=== PATIENT | female | born 1940 | race Caucasian/White ===

== ENCOUNTER 2019-01-16 20:37 | Inpatient (IN) ==
--- NOTE | 2019-01-16 20:41 | Internal Med History&Physical ---
Medical - H&P: HPI Patient information: Note initiated : 01/16/19 at 8:38 pm Service Date, if different from initiated Date: [] Patient: Shannon Alarcon 78 y/o F admitted on for Dialysis. Chief Complaint: [] History of present illness: Ms. Alarcon is a 78 year old F Presents to the ED with an episode of nausea vomiting diarrhea as well as chills. This was acute onset occurring proximally 3 PM. She did not feel fevers but in the ED she had a fever. She states she felt fine in the morning and went to bed feeling fine as she had toast and some jelly in the morning. Then afternoon she had a go the bathroom when and had a episode of diarrhea which was nonbloody and then she had episode of nausea vomiting with probably 4 episodes of emesis. No bloody emesis. And then her family felt like she appeared to be labored in her breathing and she had a chills. She was seen over at [facility] where he had a CT abdomen pelvis done which showed ascites but no other abnormalities and she had 1 L fluid taken off from a paracentesis which was sent for analysis. She was sent over here because we have dialysis available. Blood cultures were obtained as well and are pending. Patient says she feels much improved since she first arrived to the ED. He does have diarrhea from time to time so this is not unusual. Reason why she came is because the vomiting and the appeared to have labored breathing. She has not had an episode similar to this before. She is unable to urinate because of her end-stage renal disease, has no discomfort down that region. She denies any abdominal pain or chest pain. Denies any coughing or shortness of breath at this time I was told that the chest x-ray was unremarkable. Patient has a complicated medical history including stage renal disease severe systolic heart failure, atrial fibrillation diabetes hypothyroidism Review of Systems: Pertinent positives as above with slight headache. Denies chest or abdominal pain/cough/dyspnea. Remaining 10 point review of system reviewed negative Medical - H&P: PMH Medical history: Past medical history: Diabetes End-stage renal disease on dialysis Thursday follows Dr. 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 Resides at home with her Ambulates with a walker Drinks alcohol rarely Medical - H&P: Meds Home Medications Medication Instructions Recorded Confirmed Type Carvedilol 01/16/19 01/16/19 History Medical - H&P: Exam - Constitutional Exam: General: Alert, Awake, No acute Distress, obese Eyes/N/T: EOMI, PEERL, DMM Head/Neck: neck supple, normocephalic atraumatic CV: RRR, 2/6 SM, normal s1/s2 Pulm: Clear b/l, no wheezing/rhonchi/rales Abd: soft, nontender, +BS x4 Ext: no clubbing/cyanosis, trace-1+ b/l LE edema. RUE fistula Neuro: Alert, no focal deficits, moves all extremities, CN 2-12 grossly intact, symmetrical strength b/l upper/lower, sensations intact b/l upper/lower Skin: warm/dry Medical - H&P: A/P - Narrative A/P Narrative: A: *N/V/D/Fever: suspect gastroenteritis likely viral - *Ascites: suspect 2/2 ESRD -s/p paracentesis of 1L @ [facility] -CT a/p showing *ESRD (MWF): Follows with Dr. Loco -does not urinate *Anemia, chronic: *h/o systolic CHF (EF 25-30% on 09/2015): on BB -on 2L O2 @baseline *Afib: on digoxin/BB *DM w/Hypoglyemia: 46 in ED, takes levemir 16qam *Hypothyroidism: *History of colovaginal fistula: Followed by surgery, deemed extremely high risk for surgery *Obesity: * P: -Peritoneal fluid analysis pending -hold Abx for now, check PCT -Dr. Loco following -BC pending -stool studies including c. diff pending -Dig level and continue -cont BB -SSI, hold levemir and reduce upon d/c -home med clarify -pt/ot -ppx: heparin
[2019-01-16] MEDS ORDERED: ONDANSETRON 4 MG/2 ML VIAL IV PRN (22:05)
[2019-01-16] MEDS ORDERED: ACETAMINOPHEN 325 MG TABLET PO PRN (22:05)
[2019-01-16] MEDS ORDERED: PROMETHAZINE 25 MG/ML VIAL IV PRN (22:05)
[2019-01-16] MEDS ORDERED: PROCHLORPERAZINE 10 MG/2 ML VIAL IV PRN (22:05)
[2019-01-16] MEDS: 0.9 % SODIUM CHLORIDE 10 ML SYRINGE IV SCH (23:34)
[2019-01-17] MEDS: 0.9 % SODIUM CHLORIDE 10 ML SYRINGE IV SCH ×6 (04:59→22:56)
[2019-01-17 05:41] LABS: Basophils # (Auto) 0 K/mcL (0.0-0.3); Basophils % (Auto) 0 % (0.0-2.0); Eosinophils # (Auto) 0 K/mcL (0.0-0.7); Eosinophils % (Auto) 0.1 % (0.0-7.0); Granulocytes % (Auto) 90.5 % (38.0-78.0); Hematocrit 28.5 % (36.0-48.0); Hemoglobin 9.5 g/dL (12.0-15.0); Lymphocytes # (Auto) 0.9 K/mcL (1.5-4.8); Lymphocytes % (Auto) 5.2 % (15.5-49.0); Mean Cell Volume 96.3 fL (80.0-100.0); Mean Corpuscular HGB Conc 33.2 g/dL (31.0-36.0); Mean Platelet Volume 8.6 fL (7.4-10.4); Monocytes # (Auto) 0.7 K/mcL (0.1-0.9); Monocytes % (Auto) 4.2 % (1.0-12.0); Platelet Count 178 K/mcL (140-440); RBC 2.96 M/mcL (4.00-5.20); Red Cell Distribution Width 14.4 % (11.5-14.5); WBC 16.5 K/mcL (4.5-11.0)
[2019-01-17 06:23] LABS: ALT/SGPT 17 U/l (0-40); AST/SGOT 33 U/l (0-37); Albumin 2.9 gm/dL (3.2-5.2); Albumin/Globulin Ratio 0.9 (1.0-2.3); Alkaline Phosphatase 242 U/L (39-117); Bilirubin,Direct 0.4 mg/dL (0.0-0.3); Bilirubin,Total 0.9 mg/dL (0.0-1.0); Blood Urea Nitrogen 49 mg/dl (8-23); Calcium 8.2 mg/dl (8.6-10.4); Carbon Dioxide 25 mmol/L (22-30); Chloride 96 mmol/L (96-108); Globulin 3.1 gm/dL (2.2-3.7); Glomerular Filtration Rate 7; Glucose 130 mg/dL (70-105); Lactate Dehydrogenase 217 U/L (94-250); Magnesium 2.1 mg/dL (1.6-2.5); Phosphorous 3.4 mg/dL (2.7-4.5); Potassium 4.2 mmol/L (3.3-5.1); Sodium 138 mmol/L (133-145); Triglycerides 69 mg/dl (<150); Uric Acid 4.1 mg/dL (2.5-8.0)
[2019-01-17] MEDS ORDERED: CEFEPIME 1 GM VIAL IV SCH (07:30)
[2019-01-17] MEDS: INSULIN LISPRO 1 UNIT/0.01 ML UNIT SQ SCH ×4 (07:31→21:13)
--- NOTE | 2019-01-17 07:31 | Internal Med Progress Note ---
Medical - PN: Subj Patient information: Note initiated : 01/17/19 at 7:21 am Service Date, if different from initiated Date: [] Patient: Shannon Alarcon 78 y/o F admitted on 01/16/19 for Ascites,Fever, N/V/D. Chief Complaint: [] Interval history: Ms. Alarcon is a 78 year old F Presents to the ED with an episode of nausea vomiting diarrhea as well as chills. This was acute onset occurring proximally 3 PM. She did not feel fevers but in the ED she had a fever. She states she felt fine in the morning and went to bed feeling fine as she had toast and some jelly in the morning. Then afternoon she had a go the bathroom when and had a episode of diarrhea which was nonbloody and then she had episode of nausea vomiting with probably 4 episodes of emesis. No bloody emesis. And then her family felt like she appeared to be labored in her breathing and she had a chills. She was seen over at [facility] where he had a CT abdomen pelvis done which showed ascites but no other abnormalities and she had 1 L fluid taken off from a paracentesis which was sent for analysis. She was sent over here because we have dialysis available. Blood cultures were obtained as well and are pending. Patient says she feels much improved since she first arrived to the ED. He does have diarrhea from time to time so this is not unusual. Reason why she came is because the vomiting and the appeared to have labored breathing. She has not had an episode similar to this before. She is unable to urinate because of her end-stage renal disease, has no discomfort down that region. She denies any abdominal pain or chest pain. Denies any coughing or shortness of breath at this time I was told that the chest x-ray was unremarkable. Patient has a complicated medical history including stage renal disease severe systolic heart failure, atrial fibrillation diabetes hypothyroidism 01/17 Slept well and feeling her. No nausea vomiting. Had a bowel movement overnight that was formed stool. Does have leukocytosis but is afebrile. Procalcitonin is elevated, however spurious elevations have been seen in end-stage renal disease. Overnight events patient doing well. Review of Systems: denies headache/fever/chills/nausea/vomiting/chest or abdominal pain/cough/dyspnea/diarrhea. Otherwise see above. - Constitutional Vitals: Vital Signs Temp Pulse Resp BP Pulse Ox 98.3 F 71 18 100/59 98 01/17/19 06:59 01/17/19 06:59 01/17/19 06:59 01/17/19 06:59 01/17/19 06:59 Period Temp Pulse Resp BP Sys/Fonseca Pulse Ox Last 24 Hr 97.3 F-98.4 F 57-71 16-20 91-102/48-59 98-100 Intake and Output 01/16/19 01/17/19 01/17/19 21:59 05:59 13:59 Intake Total 100 Balance 100 Weight 77.337 kg 77.337 kg Intake & Output: Intake & Output 01/16/19 01/17/19 01/17/19 21:59 05:59 13:59 Intake Total 100 Balance 100 Weight 77.337 kg 77.337 kg Intake: Oral 100 Other: Stool Size Small Stool Color Brown Stool Consistency Formed # Bowel Movements 1 Exam: General: Alert, Awake, No acute Distress, obese Eyes/N/T: EOMI, Head/Neck: neck supple, CV: RRR, 2/6 SM, Pulm: Clear b/l, no wheezing/rhonchi/rales Abd: soft, nontender, +BS x4 Ext: no clubbing/cyanosis, trace-1+ b/l LE edema. RUE fistula Neuro: Alert, no focal deficits, moves all extremities, Skin: warm/dry Medical - PN: Obj Da - Labs CBC & Chem 7: 01/17/19 04:14 01/17/19 04:14 Labs: Abnormal Lab Results 01/17/19 01/17/19 04:14 04:14 WBC 16.5 H RBC 2.96 L Hgb 9.5 L Hct 28.5 L Gran % 90.5 H Lymph % (Auto) 5.2 L Gran # 14.9 H Lymph # (Auto) 0.9 L Anion Gap 17.0 H BUN 49 H Creatinine 5.1 H* Glucose 130 H Calcium 8.2 L Direct Bilirubin 0.4 H GGT 157 H Alkaline Phosphatase 242 H Albumin 2.9 L Albumin/Globulin Ratio 0.9 L Meds: Medications Acetaminophen (Tylenol) 650 mg PO Q6HP PRN PRN Reason: PAIN/FEVER > 101 Heparin Sodium (Porcine) (Heparin) 5,000 unit SQ Q12 [facility] Insulin Human Lispro (Humalog) 0 unit SQ ACHS [facility]; Protocol Ondansetron HCl (Zofran) 4 mg IV Q6HP PRN PRN Reason: Nausea And Vomiting Prochlorperazine (Compazine) 5 mg IV Q4HP PRN PRN Reason: Nausea And Vomiting Promethazine HCl (Phenergan) 12.5 mg IV Q6HP PRN PRN Reason: Nausea And Vomiting Sodium Chloride (Saline Flush) 10 ml IV Q8 ON LICENSE OF [facility] Last Admin: 01/17/19 04:59 Dose: 10 ml Documented by: Sodium Chloride (Saline Flush) 10 ml IV Q8 ON LICENSE OF [facility] Last Admin: 01/17/19 05:00 Dose: Not Given Documented by: Medical - PN: A/P - Time Spent With Patient Total time spent is greater than 50% in coordination of care (as documented) at patient's floor/unit and/or counseling patient: - Narrative A/P Narrative: A: *N/V/D/Fever: suspect gastroenteritis -formed stool o/n, no fecal WBC -afebrile since transfer -abdomen nontender *leukocytosis/elevated PCT: leukocytosis 2/2 GI source, elevated PCT may be falsely elevated in ESRD *Ascites: suspect 2/2 ESRD -s/p paracentesis of 1L @ [facility] -CT a/p showing -SAAG *ESRD (MWF): Follows with Dr. Loco -does not urinate *Anemia, chronic: *h/o systolic CHF (EF 25-30% on 09/2015): on BB -on 2L O2 @baseline *Afib: on digoxin/BB *DM w/Hypoglyemia: 44 in ED, takes levemir 16qam *Hypothyroidism: *History of colovaginal fistula: Followed by surgery, deemed extremely high risk for surgery *Obesity: * P: -Peritoneal fluid analysis pending from [facility] -hold Abx for now, check PCT -Dr. Loco following -cefepime/flagyl -BC pending from [facility] -stool studies including c. diff -obtain labs/imaging from [facility] -cont Dig/BB -SSI, hold levemir and reduce upon d/c -pt/ot -ppx: heparin DNR Medical - PN: Qual - Stroke Symptom Onset Unknown: No
[2019-01-17] MEDS: metroNIDAZOLE 500 MG/100 ML BAG IV SCH ×3 (07:47→21:17)
[2019-01-17 08:26] LABS: Band Neutrophils % 31 % (0-10); Eosinophils % (Manual) 1 % (0-7); Hypochromasia FEW (NONE SEEN); Lymphocytes % 7 % (15-49); Monocytes % (Manual) 4 % (1-12); Platelet Estimate NORMAL (NORMAL); RBC Morphology ABNORM (NORMAL); Segmented Neutrophils % 57 % (38-78)
[2019-01-17] MEDS: HEPARIN 5,000 UNIT/ML VIAL SQ SCH ×2 (09:02→21:13)
--- NOTE | 2019-01-17 12:06 | Consultation ---
DATE OF CONSULTATION: 01/17/2019 REFERRING PHYSICIAN: Silas Jose M.D. REASON FOR CONSULTATION: End-stage renal disease. HISTORY OF PRESENT ILLNESS: The patient is an 78-year-old female with a past medical history significant for history of congestive heart failure, end-stage renal disease on hemodialysis, diabetes, and history of vesicovaginal fistula. She was in her usual state of health and developed shaking chills and fever with no diarrhea and vomiting on 01/16/2019. For that reason, she was taken to [facility] and subsequently transferred to [facility]. While she was at [facility], a CT scan of the abdomen showed ascites, about a liter of which was drained. The rest of the workup for that is still pending. PAST MEDICAL HISTORY: 1. End-stage renal disease on hemodialysis. She dialyzes Mondays, Wednesdays and Fridays. 2. History of congestive heart failure with an ejection fraction of 25 to 30% and with an echocardiogram done in 09/2015. She is on home O2. 3. Atrial fibrillation. 4. Hypothyroidism. 5. Chronic anemia. 6. Diabetes. 7. Colovaginal fistula which was followed by Dr. Yinka Rothman and Dr. Eubanks and found to be a high-risk surgical candidate. PAST SURGICAL HISTORY: Cholecystectomy, abdominal hysterectomy with bilateral salpingo-oophorectomy. FAMILY HISTORY: Mother had lung cancer. SOCIAL HISTORY: The patient quit smoking in her 40s. She has been on hospice in the past in [place] for end-stage heart failure. She resides with her and has no history of alcohol or drug use. MEDICATIONS ON ADMISSION: Carvedilol. REVIEW OF SYSTEMS: Ten systems were reviewed and negative except for those in history of present illness. PHYSICAL EXAMINATION: GENERAL: Alert and oriented x3, in no apparent distress. VITAL SIGNS: Blood pressures are 90 to 100 systolic with a diastolic in the 50s, pulse rates are in the 60s. Temperature 97.5 with a pulse oximetry 100% on 3 liters. HEENT: NC/AT. Pupils are reactive. External ear and tympanic membranes appear normal. NECK: Supple. No jugular venous distention. No lymphadenopathy. No thyromegaly. No carotid bruits. LUNGS: Decreased air entry bilaterally. No rales or rhonchi heard. CARDIAC: S1, S2 heard. No S3, S4. No murmurs, no rubs. ABDOMEN: Soft, nontender. No organomegaly. Positive bowel sounds. No mass, no rebound. EXTREMITIES: Did not show any evidence of edema. Difficult to palpate a dorsalis pedis and posterior tibials. No skin rash or joint swellings noted. NEUROLOGIC: Grossly intact. LABORATORY DATA: White count is 16.5, hemoglobin of 9.5, platelet count of 178. Sodium 138, potassium 4.2, chloride of 96, CO2 25, BUN 49, creatinine of 5.1, calcium 8.2, phosphorus of 3.4. ASSESSMENT AND PLAN: 1. End-stage renal disease on hemodialysis. We will dialyze her for 3.5 hours with a blood flow of 400, dialysate of 800. We will keep her on a 2K bath for volume status as she could be slightly volume overloaded, but her blood pressure is soft. I will take out about 2 liters of fluid as tolerated. 2. Ascites. This could be dialysis ascites or related to rectovaginal fistula. I feel like it is related to rectovaginal fistula. We will continue with dialysis and fluid removal as tolerated. Thank you for the consultation. I will follow with you. RUDDY:sera Job ID: [id number] Doc ID: [id number] Cristian VALDEZ
[2019-01-18] MEDS: 0.9 % SODIUM CHLORIDE 10 ML SYRINGE IV SCH ×6 (05:49→21:33)
[2019-01-18] MEDS: metroNIDAZOLE 500 MG/100 ML BAG IV SCH ×3 (05:49→21:27)
[2019-01-18 06:58] LABS: Hemoglobin 9.7 g/dL (12.0-15.0); Mean Cell Volume 95.4 fL (80.0-100.0); Mean Corpuscular HGB Conc 33.6 g/dL (31.0-36.0); Mean Platelet Volume 9.1 fL (7.4-10.4); Platelet Count 186 K/mcL (140-440); RBC 3.04 M/mcL (4.00-5.20); Red Cell Distribution Width 15.1 % (11.5-14.5); WBC 8.6 K/mcL (4.5-11.0)
[2019-01-18] MEDS: INSULIN LISPRO 1 UNIT/0.01 ML UNIT SQ SCH ×4 (07:12→21:32)
[2019-01-18 07:37] LABS: ALT/SGPT 17 U/l (0-40); AST/SGOT 28 U/l (0-37); Albumin 3.4 gm/dL (3.2-5.2); Albumin/Globulin Ratio 1.1 (1.0-2.3); Alkaline Phosphatase 245 U/L (39-117); Bilirubin,Direct 0.4 mg/dL (0.0-0.3); Bilirubin,Total 0.8 mg/dL (0.0-1.0); Blood Urea Nitrogen 27 mg/dl (8-23); Calcium 8.8 mg/dl (8.6-10.4); Carbon Dioxide 26 mmol/L (22-30); Chloride 95 mmol/L (96-108); Globulin 3.2 gm/dL (2.2-3.7); Glomerular Filtration Rate 12; Glucose 94 mg/dL (70-105); Lactate Dehydrogenase 171 U/L (94-250); Phosphorous 2.5 mg/dL (2.7-4.5); Potassium 4.1 mmol/L (3.3-5.1); Sodium 137 mmol/L (133-145); Triglycerides 68 mg/dl (<150); Uric Acid 2.6 mg/dL (2.5-8.0)
--- NOTE | 2019-01-18 07:46 | Internal Med Progress Note ---
Medical - PN: Subj Patient information: Note initiated : 01/18/19 at 7:41 am Service Date, if different from initiated Date: [] Patient: Shannno Alarcon 78 y/o F admitted on 01/16/19 for Ascites,Fever, N/V/D. Chief Complaint: [] Interval history: Ms. Alarcon is a 78 year old F Presents to the ED with an episode of nausea vomiting diarrhea as well as chills. This was acute onset occurring proximally 3 PM. She did not feel fevers but in the ED she had a fever. She states she felt fine in the morning and went to bed feeling fine as she had toast and some jelly in the morning. Then afternoon she had a go the bathroom when and had a episode of diarrhea which was nonbloody and then she had episode of nausea vomiting with probably 4 episodes of emesis. No bloody emesis. And then her family felt like she appeared to be labored in her breathing and she had a chills. She was seen over at [facility] where he had a CT abdomen pelvis done which showed ascites but no other abnormalities and she had 1 L fluid taken off from a paracentesis which was sent for analysis. She was sent over here because we have dialysis available. Blood cultures were obtained as well and are pending. Patient says she feels much improved since she first arrived to the ED. He does have diarrhea from time to time so this is not unusual. Reason why she came is because the vomiting and the appeared to have labored breathing. She has not had an episode similar to this before. She is unable to urinate because of her end-stage renal disease, has no discomfort down that region. She denies any abdominal pain or chest pain. Denies any coughing or shortness of breath at this time I was told that the chest x-ray was unremarkable. Patient has a complicated medical history including stage renal disease severe systolic heart failure, atrial fibrillation diabetes hypothyroidism 01/17 Slept well and feeling her. No nausea vomiting. Had a bowel movement overnight that was formed stool. Does have leukocytosis but is afebrile. Procalcitonin is elevated, however spurious elevations have been seen in end-stage renal disease. Overnight events patient doing well. 01/18 Poor sleep last night. Otherwise no overnight events or complaints. Overnight she has recorded small loose stool. Patient does not remember episode of diarrhea. Still awaiting C. difficile test. Review of Systems: denies headache/fever/chills/nausea/vomiting/chest or abdominal pain/cough/dyspnea. Otherwise see above. - Constitutional Vitals: Vital Signs Temp Pulse Resp BP Pulse Ox 98.5 F 68 20 88/40 96 01/18/19 03:30 01/18/19 03:30 01/18/19 03:30 01/18/19 03:30 01/18/19 03:30 Period Temp Pulse Resp BP Sys/Fonseca Pulse Ox Last 24 Hr 97.3 F-98.5 F 60-73 16-20 81-117/40-62 96-98 Intake and Output 01/17/19 01/18/19 01/18/19 21:59 05:59 13:59 Intake Total 640 200 Output Total 2450 Balance -1810 200 Weight 76.657 kg Intake & Output: Intake & Output 01/17/19 01/18/19 01/18/19 21:59 05:59 13:59 Intake Total 640 200 Output Total 2450 Balance -1810 200 Weight 76.657 kg Intake: IV 100 100 Oral 540 100 Output: Hemodialysis UF 2450 Other: Meal Dinner Percent of Meal Consumed 100% Feeding Ability Independent Stool Size Small Stool Consistency Loose # Bowel Movements 1 Exam: General: Alert, Awake, No acute Distress, obese Eyes/N/T: EOMI, Head/Neck: neck supple, CV: RRR, 2/6 SM, Pulm: Clear b/l, no wheezing/rhonchi/rales Abd: soft, nontender, +BS x4 Ext: no clubbing/cyanosis, trace-1+ b/l LE edema. RUE fistula Neuro: Alert, no focal deficits, moves all extremities, Skin: warm/dry Medical - PN: Obj Da - Labs CBC & Chem 7: 01/18/19 03:50 01/18/19 03:50 Labs: Abnormal Lab Results 01/18/19 01/18/19 01/17/19 03:50 03:50 04:14 WBC RBC 3.04 L Hgb 9.7 L Hct 29.0 L RDW 15.1 H Gran % Lymph % (Auto) Gran # Lymph # (Auto) Band Neutrophils % 31 H Lymphocytes % 7 L RBC Morphology Abnorm A Hypochromasia Few A Chloride 95 L Anion Gap BUN 27 H Creatinine 3.5 H Glucose Calcium Phosphorus 2.5 L Direct Bilirubin 0.4 H GGT 160 H Alkaline Phosphatase 245 H Albumin Albumin/Globulin Ratio 01/17/19 01/17/19 04:14 04:14 WBC 16.5 H RBC 2.96 L Hgb 9.5 L Hct 28.5 L RDW Gran % 90.5 H Lymph % (Auto) 5.2 L Gran # 14.9 H Lymph # (Auto) 0.9 L Band Neutrophils % Lymphocytes % RBC Morphology Hypochromasia Chloride Anion Gap 17.0 H BUN 49 H Creatinine 5.1 H* Glucose 130 H Calcium 8.2 L Phosphorus Direct Bilirubin 0.4 H GGT 157 H Alkaline Phosphatase 242 H Albumin 2.9 L Albumin/Globulin Ratio 0.9 L Meds: Medications Acetaminophen (Tylenol) 650 mg PO Q6HP PRN PRN Reason: PAIN/FEVER > 101 Cefepime HCl (Maxipime) 1 gm IV DAILY [facility]; Protocol Diagnostic Test (Pha) (Accu-Chek) 1 each FS [facility] Last Admin: 01/18/19 07:11 Dose: 1 each Documented by: Heparin Sodium (Porcine) (Heparin) 5,000 unit SQ Q12 [facility] Last Admin: 01/17/19 21:13 Dose: 5,000 unit Documented by: Metronidazole (Flagyl) 500 mg in 100 mls @ 100 mls/hr IV Q8H [facility]; Protocol Last Admin: 01/18/19 05:49 Dose: 100 mls/hr Documented by: Insulin Human Lispro (Humalog) 0 unit SQ [facility]; Protocol Last Admin: 01/18/19 07:12 Dose: Not Given Documented by: Ondansetron HCl (Zofran) 4 mg IV Q6HP PRN PRN Reason: Nausea And Vomiting Prochlorperazine (Compazine) 5 mg IV Q4HP PRN PRN Reason: Nausea And Vomiting Promethazine HCl (Phenergan) 12.5 mg IV Q6HP PRN PRN Reason: Nausea And Vomiting Sodium Chloride (Saline Flush) 10 ml IV Q8 [facility] Last Admin: 01/18/19 05:49 Dose: 10 ml Documented by: Sodium Chloride (Saline Flush) 10 ml IV Q8 [facility] Last Admin: 01/18/19 07:12 Dose: 10 ml Documented by: Medical - PN: A/P - Time Spent With Patient Total time spent is greater than 50% in coordination of care (as documented) at patient's floor/unit and/or counseling patient: - Narrative A/P Narrative: *N/V/D/Fever: suspect gastroenteritis -no fecal WBC -afebrile since transfer -abdomen nontender *leukocytosis/elevated PCT: leukocytosis 2/2 GI source, elevated PCT may be falsely elevated in ESRD vs GI infection -afebrile, does not appear toxic -leukocytosis/bandemia resolved *Ascites: possibly 2/2 ESRD. no abd pain or encephalopathy -s/p paracentesis of 2.5L @ [facility], described as straw colored, low WBC /Neutrophil count -CT a/p showing mod uncomplicated ascites, no mention of colovaginal fistula (study done w/o contrast), small pleural effusion -SAAG <1.1 from ?nephrosis, no signs of infection/inflammation in fluid *ESRD (MWF): Follows with Dr. Loco -does not urinate *Anemia, chronic: *h/o systolic CHF (EF 25-30% on 09/2015): on BB -on 2L O2 @baseline, currently on room air *Afib: on digoxin/BB *DM w/Hypoglyemia: 46 in ED, takes levemir 16qam *Hypothyroidism: *History of colovaginal fistula: Followed by surgery, deemed extremely high risk for surgery *Obesity: * P: -Peritoneal fluid analysis pending from [facility], cytology added -Dr. Loco following -cefepime/flagyl likely transition to cipro/flagyl to finish course -BC pending from [facility] -stool studies including c. diff -cont Dig/BB -SSI, hold levemir and reduce upon d/c -pt/ot -ppx: heparin DNR Medical - PN: Qual - Stroke Symptom Onset Unknown: No
[2019-01-18] MEDS: HEPARIN 5,000 UNIT/ML VIAL SQ SCH ×2 (08:32→21:29)
[2019-01-18] MEDS: CEFEPIME 1 GM VIAL IV SCH (08:32)
[2019-01-18 08:55] LABS: Eosinophils % (Manual) 2 % (0-7); Lymphocytes % 13 % (15-49); Monocytes % (Manual) 3 % (1-12); Platelet Estimate NORMAL (NORMAL); RBC Morphology NORMAL (NORMAL); Segmented Neutrophils % 82 % (38-78)
--- NOTE | 2019-01-18 11:14 | Discharge Summary ---
Medical - DS: Prov Patient information: Note initiated : 01/18/19 at 11:08 am Service Date, if different from initiated Date: [] Patient: Shannon Alarcon 78 y/o F admitted on 01/16/19 for Ascites,Fever, N/V/D. Chief Complaint: [] Date of admission: 01/16/19 21:19 Discharge date: 01/19/19 Primary care physician: Chaparro Mendez Consults: 01/16/19 20:56 Consult to Physician [CONS] Routine Comment: Consulting Provider: Cristian Loco Reason For Exam: Physician to Consult Medical - DS: Meds - Discharge Medications Prescriptions: Ciprofloxacin HCl [Cipro] 500 mg PO Q24 #2 tab Insulin Glargine, Human 5 units SQ QAM #1 metroNIDAZOLE [Flagyl] 500 mg PO TID #6 tab Active and Home Medications: Home Medications Insulin Glargine, Human 16 units SQ QAM 01/16/19 [History Confirmed 01/16/19 Last Taken Unknown] Carvedilol [Coreg] 25 mg PO BID 01/17/19 [History Confirmed 01/17/19 Last Taken Unknown] Sevelamer [Renvela] 1 tab PO QAM 01/17/19 [History Confirmed 01/17/19 Last Taken Unknown] Home Medications Ciprofloxacin HCl [Cipro] 500 mg PO Q24 #2 tab 01/18/19 [Rx Last Taken Unknown] Folic Acid/Vit Bcomp,C [Bebe-Serenity Tablet] 1 tab PO DAILY 01/18/19 [History Confirmed 01/18/19 Last Taken Unknown] Insulin Glargine, Human 5 units SQ QAM #1 01/18/19 [Rx Last Taken Unknown] Levothyroxine [Synthroid] 1 tab PO DAILY 01/18/19 [History Confirmed 01/18/19 Last Taken Unknown] metroNIDAZOLE [Flagyl] 500 mg PO TID #6 tab 01/18/19 [Rx Last Taken Unknown] Medical - DS: Hosp Hospital course: Ms. Alarcon is a 78 year old F Presents to the ED with an episode of nausea vomiting diarrhea as well as chills. This was acute onset occurring proximally 3 PM. She did not feel fevers but in the ED she had a fever. She states she felt fine in the morning and went to bed feeling fine as she had toast and some jelly in the morning. Then afternoon she had a go the bathroom when and had a episode of diarrhea which was nonbloody and then she had episode of nausea vomiting with probably 4 episodes of emesis. No bloody emesis. And then her family felt like she appeared to be labored in her breathing and she had a chills. She was seen over at [facility] where he had a CT abdomen pelvis done which showed ascites but no other abnormalities and she had 1 L fluid taken off from a paracentesis which was sent for analysis. She was sent over here because we have dialysis available. Blood cultures were obtained as well and are pending. Patient says she feels much improved since she first arrived to the ED. He does have diarrhea from time to time so this is not unusual. Reason why she came is because the vomiting and the appeared to have labored breathing. She has not had an episode similar to this before. She is unable to urinate because of her end-stage renal disease, has no discomfort down that region. She denies any abdominal pain or chest pain. Denies any coughing or shortness of breath at this time I was told that the chest x-ray was unremarkable. Patient has a complicated medical history including stage renal disease severe systolic heart failure, atrial fibrillation diabetes hypothyroidism 01/17 Slept well and feeling her. No nausea vomiting. Had a bowel movement overnight that was formed stool. Does have leukocytosis but is afebrile. Procalcitonin is elevated, however spurious elevations have been seen in end-stage renal disease. Overnight events patient doing well. 01/18 Poor sleep last night. Otherwise no overnight events or complaints. Overnight she has recorded small loose stool. Patient does not remember episode of diarrhea. Still awaiting C. difficile test. 01/19 doing well, stable for d/c. Discharge diagnosis: Gastroenteritis ascites anemia end-stage renal disease Secondary discharge diagnosis: Atrial fibrillation diabetes with hyperglycemia hypothyroidism history of colovaginal fistula obesity - Time Spent with Patient Total time spent providing and/or coordinating discharge services: Greater than 30 minutes Medical - DS: Exam - Constitutional Vitals: Vital Signs Temp Pulse Pulse Resp BP BP Pulse Ox 01/18/19 07:43 98.1 F 64 16 122/61 96 01/18/19 03:30 98.5 F 68 20 88/40 96 01/17/19 23:55 98.2 F 70 20 84/45 96 01/17/19 19:35 97.9 F 73 16 92/48 97 01/17/19 18:05 97.9 F 67 105/50 01/17/19 17:45 65 100/47 01/17/19 17:30 68 103/49 01/17/19 17:15 61 99/40 01/17/19 17:00 60 117/50 01/17/19 16:45 65 103/46 01/17/19 16:30 65 100/40 01/17/19 16:15 65 101/52 01/17/19 16:00 97.8 F 65 60 18 97/52 99/60 97 01/17/19 15:45 60 95/49 01/17/19 15:30 60 96/48 01/17/19 15:15 60 81/51 01/17/19 15:00 60 99/62 01/17/19 14:50 60 104/54 01/17/19 14:35 97.3 F 60 98/47 01/17/19 12:00 98.1 F 61 18 93/51 97 Intake and Output 01/17/19 01/18/19 01/18/19 21:59 05:59 13:59 Intake Total 640 200 240 Output Total 2450 Balance -1810 200 240 Intake: IV 100 100 Oral 540 100 240 Output: Hemodialysis UF 2450 Other: Meal Dinner Percent of Meal Consumed 100% 75% Feeding Ability Independent Stool Size Small Stool Consistency Loose # Bowel Movements 1 Weight 76.657 kg Medical - DS: Data Labs on day of discharge: Labs from last 24 hours 01/18/19 01/18/19 01/18/19 03:50 03:50 03:50 WBC 8.6 RBC 3.04 L Hgb 9.7 L Hct 29.0 L MCV 95.4 MCH 32.1 MCHC 33.6 RDW 15.1 H Plt Count 186 MPV 9.1 Total Counted 100 Seg Neutrophils % 82 H Band Neutrophils % Not Reportable Lymphocytes % 13 L Monocytes % (Manual) 3 Eosinophils % (Manual) 2 Platelet Estimate Normal RBC Morphology Normal Sodium 137 Potassium 4.1 Chloride 95 L Carbon Dioxide 26 Anion Gap 16.0 BUN 27 H Creatinine 3.5 H GFR Calculation 12 Glucose 94 Uric Acid 2.6 Calcium 8.8 Phosphorus 2.5 L Magnesium 2.0 Total Bilirubin 0.8 Direct Bilirubin 0.4 H GGT 160 H AST 28 ALT 17 Alkaline Phosphatase 245 H Lactate Dehydrogenase 171 Total Protein 6.6 Albumin 3.4 Globulin 3.2 Albumin/Globulin Ratio 1.1 Triglycerides 68 Procalcitonin 150.91 Peritoneal Albumin Miscellaneous Test 01/16/19 01/16/19 11:25 11:25 WBC RBC Hgb Hct MCV MCH MCHC RDW Plt Count MPV Total Counted Seg Neutrophils % Band Neutrophils % Lymphocytes % Monocytes % (Manual) Eosinophils % (Manual) Platelet Estimate RBC Morphology Sodium Potassium Chloride Carbon Dioxide Anion Gap BUN Creatinine GFR Calculation Glucose Uric Acid Calcium Phosphorus Magnesium Total Bilirubin Direct Bilirubin GGT AST ALT Alkaline Phosphatase Lactate Dehydrogenase Total Protein Albumin Globulin Albumin/Globulin Ratio Triglycerides Procalcitonin Peritoneal Albumin 2.2 Miscellaneous Test Preliminary micro results at discharge 01/16/19 23:30 Stool Culture - Preliminary Stool Medical - DS: A/P - Patient/Caregiver Discharge Instructions Activity: increase activity as tolerated Diet: Renal/Consistent Carbs Prescriptions: Ciprofloxacin HCl [Cipro] 500 mg PO Q24 #2 tab Insulin Glargine, Human 5 units SQ QAM #1 metroNIDAZOLE [Flagyl] 500 mg PO TID #6 tab - Follow up Plan Follow up with: Cristian Loco MD [Physician] - Disposition: Home Health Service Prognosis: Undetermined Rehab Potential: Fair Overall status at discharge: patient is back to baseline
[2019-01-18] MEDS ORDERED: CARVEDILOL 12.5 MG TABLET PO SCH (17:30)
[2019-01-19 05:39] LABS: Blood Urea Nitrogen 42 mg/dl (8-23); Calcium 8.4 mg/dl (8.6-10.4); Carbon Dioxide 25 mmol/L (22-30); Chloride 93 mmol/L (96-108); Glomerular Filtration Rate 9; Glucose 104 mg/dL (70-105); Potassium 4.4 mmol/L (3.3-5.1); Sodium 132 mmol/L (133-145)
[2019-01-19] MEDS: metroNIDAZOLE 500 MG/100 ML BAG IV SCH (06:02)
[2019-01-19] MEDS: 0.9 % SODIUM CHLORIDE 10 ML SYRINGE IV SCH ×2 (06:03→06:04)
[2019-01-19] MEDS ORDERED: LEVOTHYROXINE 75 MCG TABLET PO SCH (07:30)
[2019-01-19] MEDS: INSULIN LISPRO 1 UNIT/0.01 ML UNIT SQ SCH (07:49)
[2019-01-19] MEDS ORDERED: CARVEDILOL 12.5 MG TABLET PO SCH (08:00)
[2019-01-19] MEDS: HEPARIN 5,000 UNIT/ML VIAL SQ SCH (09:02)
[2019-01-19] MEDS: CEFEPIME 1 GM VIAL IV SCH (09:02)
--- NOTE | 2019-01-19 09:31 | Nephrology Progress Note ---
Subjective Patient information: Note initiated : 01/19/19 at 9:28 am Service Date, if different from initiated Date: [] Patient: Shannon Alarcon 78 y/o F admitted on 01/16/19 for Ascites,Fever, N/V/D. Chief Complaint: [] Has been feeling better. ? BMs last night, patient did not remember. Objective - Vital Signs Vital signs: Vital Signs Temp Pulse Resp BP Pulse Ox 01/19/19 07:40 97.7 F 63 20 101/61 99 01/19/19 04:17 97.8 F 64 20 96/55 01/18/19 22:30 97.9 F 68 24 H 100/56 98 01/18/19 18:54 97.4 F 69 24 H 101/54 98 01/18/19 17:01 95 01/18/19 15:44 98.5 F 63 16 120/74 01/18/19 11:41 97.8 F 75 18 115/67 94 Intake and Output 01/18/19 01/19/19 01/19/19 21:59 05:59 13:59 Intake Total 1320 200 360 Output Total 0 Balance 1320 200 360 Intake: Nourishment/Supplement quantity 240 240 (ml) IV 100 100 Oral 980 100 120 Output: Void Amount 0 Other: Meal Dinner Breakfast Percent of Meal Consumed 75% 75% Nourishment/Supplement name Nepro Nepro # Bowel Movements 1 Weight 170 lb 8 oz Intake & Output: Intake & Output 01/18/19 01/19/19 01/19/19 21:59 05:59 13:59 Intake Total 1320 200 360 Output Total 0 Balance 1320 200 360 Weight 170 lb 8 oz Intake: Nourishment/Supplement quantity 240 240 (ml) IV 100 100 Oral 980 100 120 Output: Void Amount 0 Other: Meal Dinner Breakfast Percent of Meal Consumed 75% 75% Nourishment/Supplement name Nepro Nepro # Bowel Movements 1 - General Appearance General appearance: well-developed, well-nourished EENT: ATNC Neck: no JVD Respiratory: no kyphosis Cardiology: diastolic murmur Gastrointestinal: normoactive bowel sounds Integumentary: no rash Neurologic: no focal deficit - Lab 01/18/19 03:50 01/19/19 03:40 Most recent lab results Calcium 8.4 mg/dl (8.6-10.4) L 01/19/19 03:40 Phosphorus 2.5 mg/dL (2.7-4.5) L 01/18/19 03:50 Magnesium 2.0 mg/dL (1.6-2.5) 01/18/19 03:50 Assessment and Plan (1) Chronic renal failure Had dialysis Thursday. She will have dialysis as outpatient today. Labs and fluid status seem ok. Status: Acute
== END 2019-01-19 10:05 | disposition home health service (06) | DRG 391 ==
LOC: ICU 21:19
PROVIDERS: ADMIT Internal Medicine; ATTEND Internal Medicine

== ENCOUNTER 2019-06-02 16:54 | Inpatient (IN) ==
--- NOTE | 2019-06-02 17:39 | Emergency Department Note ---
Lower Extremity Injury HPI - General Chief Complaint: Extremity Injury, Lower Stated Complaint: Left knee pain Time Seen by Provider: 06/02/19 17:36 Mode of arrival: wheelchair - History of Present Illness HPI Narrative: 78-year-old female comes in the emergency department this evening by EMS after she tripped and fell at home at 1500 this evening walking through her doorway. She did not hit her head or lose consciousness. She describes throbbing and aching sensation to the left knee and has not been able to bear weight on her left knee. She rates the pain 8 out of 10 on a 0-10 numerical pain scale. She denies any numbness or tingling. - Related Data Home Medications Medication Instructions Recorded Confirmed Levothyroxine [Synthroid] 1 tab PO DAILY 01/18/19 06/02/19 cholecalciferol (vitamin D3) 10,000 unit PO .Q3Days/Week cap 05/25/19 06/02/19 10,000 unit capsule digoxin 125 mcg (0.125 mg) tablet 125 mcg PO .Q3 Days/Week tab 05/25/19 docusate sodium 100 mg capsule 100 mg PO BID 05/25/19 06/02/19 Midodrine [Midodrine HCl] 5 mg PO TID 06/02/19 06/02/19 Previous Rx's Medication Instructions Recorded Insulin Glargine, Human 5 units SQ QAM #1 01/18/19 Allergies Allergy/AdvReac Type Severity Reaction Status Date / Time Penicillins Allergy Unknown Unknown Verified 05/31/19 07:36 morphine AdvReac Intermediate Inside of Verified 05/31/19 07:36 her body gets hot quinapril [From Accupril] AdvReac Intermediate Cough Verified 05/31/19 07:36 codeine AdvReac Mild constipatio Verified 05/31/19 07:36 n Review of Systems All systems ED: reviewed and negative except as stated. Past Medical History - Past Medical History Medical history: Reports: arthritis, DM, hyperlipidemia, hypertension, liver disease, obesity, osteoporosis, renal disease, valvular heart disease Surgical history ED: Reports: cholecystectomy, hysterectomy - Social History smoking status: Former smoker Alcohol use: Reports: None Drug use: Reports: none Physical Exam Limitations: no limitations General appearance: alert, in no apparent distress Extremities: Present: normal capillary refill, other (2+ edema bilateral lower extremities. Normal sensation.) Knee: Present: other (Left knee is normal inspection. Mild swelling. No erythema or ecchymosis. No deformity. No lacerations or abrasions. There is tenderness with palpation over the patella and the lateral medial side of knee.) Lower leg: Present: normal inspection, full ROM. Absent: tenderness, laceration, ecchymosis, deformity Ankle: Present: normal inspection, full ROM. Absent: tenderness, swelling, abrasion, laceration Foot/toe: Present: normal inspection, full ROM Course - Reevaluation(s) Time: 18:39 (patient receiving fentanyl for pain management. X-ray shows femur fracture and multiple fragments. Radiology report pending. We will call Dr. Restrepo is to call for orthopedics.) Time: 20:04 (Spoke with Dr. Jose who will come see the patient in the ED. ) Vital Signs Temperature 98.0 F 06/02/19 16:54 Pulse Rate 131 H 06/02/19 16:54 Respiratory Rate 20 06/02/19 16:54 Blood Pressure 99/64 06/02/19 16:54 Pulse Oximetry (%) 94 06/02/19 16:54 Temperature 99.1 F H 06/02/19 19:23 Pulse Rate 114 H 06/02/19 20:43 Respiratory Rate 20 06/02/19 16:54 Blood Pressure 91/64 06/02/19 20:31 Pulse Oximetry (%) 95 06/02/19 20:43 Extremity Injury, Lower - MDM Narrative Medical decision making narrative: Patient has a fractured femur and will need surgery. Spoke with Dr. Restrepo who is on-call for orthopedics this evening, and Dr. Restrepo will plan on surgery tomorrow around 11. Patient will be nothing by mouth after midnight. Called spoke with Dr. Loco about his patient's admission and Dr. Loco will plan on hemodialysis tomorrow morning and will coordinate this with Dr. Restrepo and with Dr. Jose. Currently waiting for preop labs at this time. Patient is receiving fentanyl IV for pain management which is controlling her pain at this time. Dr. Jose did accept the patient and will admit the patient to [facility]. - Lab Data Result diagrams: 06/02/19 19:51 11/21/19 19:51 Lab Results 06/02/19 Range/Units 19:51 WBC 17.9 H (4.5-11.0) K/mcL RBC 3.53 L (4.00-5.20) M/mcL Hgb 11.4 L (12.0-15.0) g/dL Hct 33.7 L (36.0-48.0) % MCV 95.4 (80.0-100.0) fL MCH 32.3 (26.0-34.0) pg MCHC 33.8 (31.0-36.0) g/dL RDW 15.6 H (11.5-14.5) % Plt Count 290 (140-440) K/mcL MPV 7.9 (7.4-10.4) fL Gran % 93.1 H (38.0-78.0) % Lymph % (Auto) 2.8 L (15.5-49.0) % Citrus % (Auto) 4.1 (1.0-12.0) % Eos % (Auto) 0 (0.0-7.0) % Baso % (Auto) 0 (0.0-2.0) % Gran # 16.6 H (1.8-8.0) K/mcL Lymph # (Auto) 0.5 L (1.5-4.8) K/mcL Citrus # (Auto) 0.7 (0.1-0.9) K/mcL Eos # (Auto) 0 (0.0-0.7) K/mcL Baso # (Auto) 0 (0.0-0.3) K/mcL Disposition Pt seen by TRAVELIFT OPERATOR/PA only: Yes Clinical Impression: Fracture of femur, End stage renal disease Disposition: Xfer As Inpt ([facility]) Condition: Fair
[2019-06-02] MEDS ORDERED: fentaNYL 100 MCG/2 ML VIAL IV ONE (18:10)
[2019-06-02] MEDS: fentaNYL 100 MCG/2 ML VIAL IV PRN ×2 (19:00→20:15)
--- NOTE | 2019-06-02 20:46 | Internal Med History&Physical ---
Medical - H&P: HPI Patient information: Note initiated : 06/02/19 at 8:40 pm Service Date, if different from initiated Date: [] Patient: Shannon Alarcon 78 y/o F admitted on for Left knee pain. Chief Complaint: [] History of present illness: Ms. Alarcon is a 78 year old F With significant comorbidities who is returning home from a doctor's appointment and while walking through her front door tripped on the doorway falling on her left leg with instant pain. She did not pass out. She did hit the top of her head with a noted abrasion. She denies any chest pain shortness of breath coughing. Has some nausea but no vomiting. No headache. She is chronically incontinent of stool. Is on chronic oxygen 2 L daily. She was on hospice in the past and [place] for just of heart failure. Has a history of atrial fibrillation and is on digoxin, she was on carvedilol in the past but that was stopped due to low blood pressure. She does not recall being on any anticoagulation. She undergoes dialysis with Dr. Loco Thursday. She also gets paracentesis on a regular basis for ascites which is felt to be related to her end-stage renal disease. Laboratory work is pending. She was found to have a comminuted distal left femur fracture. Case was discussed with Dr. Restrepo. This is also discussed with Dr. Loco who will dialyze the patient in the morning and patient will likely be able to undergo surgery afterwards. Patient is extremely high risk for surgery and I discussed case with Dr. Restrepo. There is no reasonable alternative conservative treatment. She does function at home with her and uses a walker. She seems to understand her significant risk including perioperatively. And is willing to take the risk of surgery in order to be able to be ambulatory and functional afterwards. Review of Systems: Pertinent positives as above. Denies headache/fever/chills/vomiting/chest or abdominal pain/cough/dyspnea. Remaining 10 point review of system reviewed neg ative Medical - H&P: PMH Medical history: Past medical history: Diabetes End-stage renal disease on dialysis Thursday follows Dr. Loco ascites felt to be related to ESRD vs fistula Chronic anemia Systolic heart failure with ejection fraction 25 to 30% on echo September 2015 on home oxygen 2 L Atrial fibrillation Hypothyroidism Colovaginal fistula for which she is been followed by surgery and has had multiple discussions given her severe they high risk for surgery Past surgical history: Total abdominal hysterectomy with bilateral salpingo-oophorectomy Cholecystectomy Family history: Mother lung cancer Social history: Patient quit smoking over 40 years ago Has been on hospice in the past and [place] for end-stage heart failure Has resided at [facility] facilities. Resides at home with her Ambulates with a walker Drinks alcohol rarely Medical - H&P: Meds Home Medications Medication Instructions Recorded Confirmed Type Insulin Glargine, Human 5 units SQ QAM #1 01/18/19 06/02/19 Rx Levothyroxine [Synthroid] 1 tab PO DAILY 01/18/19 06/02/19 History cholecalciferol (vitamin D3) 10,000 unit PO .Q3Days/Week cap 05/25/19 06/02/19 History 10,000 unit capsule digoxin 125 mcg (0.125 mg) tablet 125 mcg PO .Q3 Days/Week tab 05/25/19 06/02/19 History docusate sodium 100 mg capsule 100 mg PO BID 05/25/19 06/02/19 History Midodrine [Midodrine HCl] 5 mg PO TID 06/02/19 06/02/19 History Allergies Allergy/AdvReac Type Severity Reaction Status Date / Time Penicillins Allergy Unknown Unknown Verified 05/31/19 07:36 morphine AdvReac Intermediate Inside of Verified 05/31/19 07:36 her body gets hot quinapril [From Accupril] AdvReac Intermediate Cough Verified 05/31/19 07:36 codeine AdvReac Mild constipatio Verified 05/31/19 07:36 n Medical - H&P: Exam - Constitutional Vitals: Temp Pulse Resp BP Pulse Ox 99.1 F H 108 H 20 93/56 96 06/02/19 19:23 06/02/19 19:23 06/02/19 16:54 06/02/19 19:16 06/02/19 19:23 Exam: General: Alert, Awake, No acute Distress, obese Eyes/N/T: EOMI, PEERL, Head/Neck: neck supple, normocephalic atraumatic CV: Tachycardia but regular, No murmurs, normal s1/s2 Pulm: Clear b/l, no wheezing/rhonchi/rales Abd: soft, nontender, +BS x4 Ext: no clubbing/cyanosis, 2+ b/l LE Neuro: Alert, no focal deficits, moves all extremities, CN 2-12 grossly intact, symmetrical strength b/l upper/lower, sensations intact b/l upper/lower Skin: warm/dry Medical - H&P: Reslt - Labs CBC & Chem 7: 06/02/19 19:51 06/02/19 19:51 Medical - H&P: A/P - Narrative A/P Narrative: *Left Distal femur Fx s/p GLF, no LOC: *ESRD (MWF): Follows with Dr. Loco -yaya at baseline *Recurrent Ascites: suspected to be related to ESRD and gets regular paracentesis *Anemia, chronic: *h/o systolic CHF (EF 25-30% on 09/2015): on BB -on 2L O2 @baseline *PAF: on digoxin *DM: on levemir *Hypothyroidism: *History of colovaginal fistula: Followed by surgery, deemed extremely high risk for surgery *Obesity: * P: -Patient is extremely high risk for surgery but with no good alternative for conservative treatment. Patient understands the risks perioperatively including but is willing to undergo the risk in order to be ambulatory and functional thereafter. No cardiopulmonary symptoms at this time beyond baseline. -Dr. Restrepo for orthopedic surgery -Dr. Loco following -likely surgery tomorrow after HD -home basal insulin and SSI -cont Dig, prn lopressor -pt/ot -ppx: SCD, post-op per Ortho, consider warfarin given her Afib and ESRD DNR
[2019-06-02 20:48] LABS: Basophils # (Auto) 0 K/mcL (0.0-0.3); Basophils % (Auto) 0 % (0.0-2.0); Eosinophils # (Auto) 0 K/mcL (0.0-0.7); Eosinophils % (Auto) 0 % (0.0-7.0); Granulocytes % (Auto) 93.1 % (38.0-78.0); Hematocrit 33.7 % (36.0-48.0); Hemoglobin 11.4 g/dL (12.0-15.0); Lymphocytes # (Auto) 0.5 K/mcL (1.5-4.8); Lymphocytes % (Auto) 2.8 % (15.5-49.0); Mean Cell Volume 95.4 fL (80.0-100.0); Mean Corpuscular HGB Conc 33.8 g/dL (31.0-36.0); Mean Platelet Volume 7.9 fL (7.4-10.4); Monocytes # (Auto) 0.7 K/mcL (0.1-0.9); Monocytes % (Auto) 4.1 % (1.0-12.0); Platelet Count 290 K/mcL (140-440); RBC 3.53 M/mcL (4.00-5.20); Red Cell Distribution Width 15.6 % (11.5-14.5); WBC 17.9 K/mcL (4.5-11.0)
[2019-06-02 21:02] LABS: ALT/SGPT 16 U/l (0-40); AST/SGOT 29 U/l (0-37); Albumin 2.8 gm/dL (3.2-5.2); Albumin/Globulin Ratio 0.8 (1.0-2.3); Alkaline Phosphatase 242 U/L (39-117); Bilirubin,Total 1.8 mg/dL (0.0-1.0); Blood Urea Nitrogen 36 mg/dl (8-23); Calcium 8.8 mg/dl (8.6-10.4); Carbon Dioxide 26 mmol/L (22-30); Chloride 97 mmol/L (96-108); Globulin 3.3 gm/dL (2.2-3.7); Glomerular Filtration Rate 11; Glucose 150 mg/dL (70-105)
[2019-06-02 21:04] LABS: INR 1.1 (0.9-1.1); Prothrombin Time 14.3 sec (11.9-14.5)
[2019-06-02] MEDS ORDERED: ONDANSETRON 4 MG/2 ML VIAL IV PRN (21:28)
[2019-06-02] MEDS ORDERED: SENNOSIDES 1 TABLET PO PRN (21:28)
[2019-06-02] MEDS ORDERED: 0.9 % SODIUM CHLORIDE 500 ML IV SCH (21:28)
[2019-06-02] MEDS ORDERED: DIGOXIN 125 MCG TABLET PO SCH (21:28)
[2019-06-02] MEDS ORDERED: DEXTROSE 50% 50 ML VIAL IV PRN (21:28)
[2019-06-02] MEDS ORDERED: PROMETHAZINE 25 MG/ML VIAL IV PRN (21:28)
[2019-06-02] MEDS ORDERED: DEXTROSE 31 GM ORAL.SUSP PO PRN (21:28)
[2019-06-02] MEDS ORDERED: POLYETHYLENE GLYCOL 3350 17 GM PACKET PO PRN (21:28)
[2019-06-02] MEDS ORDERED: IPRATROPIUM/ALBUTEROL 3 ML AMPUL.NEB NEB PRN (21:28)
[2019-06-02] MEDS ORDERED: METOPROLOL TARTRATE 5 MG/5 ML VIAL IV PRN (21:28)
[2019-06-02] MEDS: INSULIN LISPRO 1 UNIT/0.01 ML UNIT SQ SCH (22:15)
[2019-06-02] MEDS ORDERED: INSULIN LISPRO 1 UNIT/0.01 ML UNIT SQ ONE (22:17)
[2019-06-02] MEDS: HYDROmorphone 2 MG/ML VIAL IV PRN (22:20)
[2019-06-02] MEDS ORDERED: HYDROmorphone 2 MG/ML VIAL ONE (22:21)
[2019-06-02] MEDS: DOCUSATE SODIUM 100 MG CAPSULE PO SCH (22:44)
[2019-06-02] MEDS: FAMOTIDINE/PF 20 MG/2 ML VIAL IV SCH (22:48)
[2019-06-02] MEDS ORDERED: FAMOTIDINE/PF 20 MG/2 ML VIAL IV ONE (22:48)
[2019-06-02] MEDS: 0.9 % SODIUM CHLORIDE 10 ML SYRINGE IV SCH (22:48)
[2019-06-03] MEDS: ACETAMINOPHEN 325 MG TABLET PO PRN ×2 (05:07→18:58)
[2019-06-03] MEDS ORDERED: ACETAMINOPHEN 325 MG TABLET PO ONE (05:09)
[2019-06-03 05:38] LABS: POC Blood Urea Nitrogen 36 mg/dl (8-23); POC CO2 27 mmol/L (22-30); POC Calcium, Ionized 1.02 mmol/L (1.16-1.32); POC Chloride 98 mmol/L (96-108); POC Creatinine 4.3 mg/dl (0.6-1.1); POC Glucose, Random 166 mg/dL (70-105); POC Potassium 4.6 mmol/L (3.3-5.1); POC Sodium 136 mmol/L (133-145)
[2019-06-03] MEDS: 0.9 % SODIUM CHLORIDE 10 ML SYRINGE IV SCH ×3 (06:01→22:33)
[2019-06-03 06:25] LABS: Basophils # (Auto) 0 K/mcL (0.0-0.3); Basophils % (Auto) 0.2 % (0.0-2.0); Eosinophils # (Auto) 0 K/mcL (0.0-0.7); Eosinophils % (Auto) 0 % (0.0-7.0); Granulocytes % (Auto) 84.6 % (38.0-78.0); Hematocrit 32.7 % (36.0-48.0); Hemoglobin 10.8 g/dL (12.0-15.0); Lymphocytes # (Auto) 1.1 K/mcL (1.5-4.8); Lymphocytes % (Auto) 8.9 % (15.5-49.0); Mean Cell Volume 97.6 fL (80.0-100.0); Mean Corpuscular HGB Conc 32.8 g/dL (31.0-36.0); Monocytes # (Auto) 0.8 K/mcL (0.1-0.9); Monocytes % (Auto) 6.3 % (1.0-12.0); Platelet Count 266 K/mcL (140-440); RBC 3.35 M/mcL (4.00-5.20); Red Cell Distribution Width 15.5 % (11.5-14.5); WBC 12.3 K/mcL (4.5-11.0)
[2019-06-03 06:31] LABS: ALT/SGPT 17 U/l (0-40); AST/SGOT 33 U/l (0-37); Albumin 2.6 gm/dL (3.2-5.2); Albumin/Globulin Ratio 0.7 (1.0-2.3); Alkaline Phosphatase 218 U/L (39-117); Bilirubin,Total 1.8 mg/dL (0.0-1.0); Blood Urea Nitrogen 40 mg/dl (8-23); Calcium 8.9 mg/dl (8.6-10.4); Carbon Dioxide 24 mmol/L (22-30); Chloride 99 mmol/L (96-108); Globulin 3.5 gm/dL (2.2-3.7); Glomerular Filtration Rate 10; Glucose 170 mg/dL (70-105); Lactate Dehydrogenase 232 U/L (94-250); Phosphorous 4.5 mg/dL (2.7-4.5); Triglycerides 79 mg/dl (<150); Uric Acid 3.5 mg/dL (2.5-8.0)
--- NOTE | 2019-06-03 07:02 | Internal Med Progress Note ---
Medical - PN: Subj Patient information: Note initiated : 06/03/19 at 7:00 am Service Date, if different from initiated Date: [] Patient: Shannon Alarcon 78 y/o F admitted on 06/02/19 for Left knee pain. Chief Complaint: [] Interval history: Ms. Alarcon is a 78 year old F With significant comorbidities who is returning home from a doctor's appointment and while walking through her front door tripped on the doorway falling on her left leg with instant pain. She did not pass out. She did hit the top of her head with a noted abrasion. She denies any chest pain shortness of breath coughing. Has some nausea but no vomiting. No headache. She is chronically incontinent of stool. Is on chronic oxygen 2 L daily. She was on hospice in the past and [place] for just of heart failure. Has a history of atrial fibrillation and is on digoxin, she was on carvedilol in the past but that was stopped due to low blood pressure. She does not recall being on any anticoagulation. She undergoes dialysis with Dr. Loco Thursday. She also gets paracentesis on a regular basis for ascites which is felt to be related to her end-stage renal disease. Laboratory work is pending. She was found to have a comminuted distal left femur fracture. Case was discussed with Dr. Restrepo. This is also discussed with Dr. Loco who will dialyze the patient in the morning and patient will likely be able to undergo surgery afterwards. Patient is extremely high risk for surgery and I discussed case with Dr. Restrepo. There is no reasonable alternative conservative treatment. She does function at home with her and uses a walker. She seems to understand her significant risk including perioperatively. And is willing to take the risk of surgery in order to be able to be ambulatory and functional afterwards. 06/03 Pain to the left knee. No overnight events. For surgery today as well as dialysis. Patient high risk for surgery as previously noted. This is unknown why she is not on anticoagulation. Review of Systems: denies headache/fever/chills/nausea/vomiting/chest or abdominal pain/cough/dyspnea/diarrhea. Otherwise see above. - Constitutional Vitals: Vital Signs Temp Pulse Resp BP Pulse Ox 98.3 F 100 H 20 82/48 97 06/03/19 02:25 06/03/19 06:10 06/03/19 05:00 06/03/19 06:10 06/03/19 05:00 Period Temp Pulse Resp BP Sys/Fonseca Pulse Ox Last 24 Hr 98.0 F-99.1 F 100-131 18-20 78-99/42-64 89-97 Intake and Output 06/02/19 06/03/19 06/03/19 21:59 05:59 13:59 Intake Total 240 Balance 240 Weight 80.377 kg Intake & Output: Intake & Output 06/02/19 06/03/19 06/03/19 21:59 05:59 13:59 Intake Total 240 Balance 240 Weight 80.377 kg Intake: Oral 240 Exam: General: Alert, Awake, No acute Distress, obese Eyes/N/T: EOMI, Head/Neck: neck supple, CV: Tachycardia but regular, no murmur Pulm: Clear b/l, no wheezing/rhonchi/rales Abd: soft, nontender, +BS x4 Ext: no clubbing/cyanosis, 2+ b/l LE chronic Neuro: Alert, no focal deficits, moves all extremities, Skin: warm/dry Medical - PN: Obj Da - Labs CBC & Chem 7: 06/03/19 05:21 06/03/19 05:21 Labs: Abnormal Lab Results 06/03/19 06/03/19 06/02/19 05:21 05:21 19:51 WBC 12.3 H RBC 3.35 L Hgb 10.8 L Hct 32.7 L POC Hct 35.0 L RDW 15.5 H Gran % 84.6 H Lymph % (Auto) 8.9 L Gran # 10.4 H Lymph # (Auto) 1.1 L POC BUN 36 H BUN 40 H 36 H Creatinine 4.1 H 3.7 H POC Creatinine 4.3 H Glucose 170 H 150 H POC Glucose 166 H POC WB Ioniz Calcium 1.02 L Total Bilirubin 1.8 H 1.8 H Direct Bilirubin 1.0 H GGT 131 H Alkaline Phosphatase 218 H 242 H Albumin 2.6 L 2.8 L Albumin/Globulin Ratio 0.7 L 0.8 L 06/02/19 19:51 WBC 17.9 H RBC 3.53 L Hgb 11.4 L Hct 33.7 L POC Hct RDW 15.6 H Gran % 93.1 H Lymph % (Auto) 2.8 L Gran # 16.6 H Lymph # (Auto) 0.5 L POC BUN BUN Creatinine POC Creatinine Glucose POC Glucose POC WB Ioniz Calcium Total Bilirubin Direct Bilirubin GGT Alkaline Phosphatase Albumin Albumin/Globulin Ratio Meds: Medications Acetaminophen (Tylenol) 650 mg PO Q6HP PRN PRN Reason: PAIN/FEVER > 101 Last Admin: 06/03/19 05:07 Dose: 650 mg Documented by: Albuterol/Ipratropium (Duoneb) 3 ml NEB Q4HP PRN PRN Reason: Shortness Of Breath Dextrose (Dextrose 50%) 0 ml IV UD PRN PRN Reason: Hypoglycemia Diagnostic Test (Pha) (Accu-Chek) 1 each FS [facility] Last Admin: 06/02/19 22:00 Dose: 1 each Documented by: Digoxin (Lanoxin) 125 mcg PO MoWeFr@1400 [facility] Docusate Sodium (Colace) 100 mg PO BID [facility] Last Admin: 06/02/19 22:44 Dose: Not Given Documented by: Famotidine (Pepcid) 20 mg IV HS [facility] Last Admin: 06/02/19 22:48 Dose: 20 mg Documented by: Glucose (Insta-Glucose) 15 gm PO PRN PRN PRN Reason: Hypoglycemia Hydromorphone HCl (Dilaudid) 0 mg IV Q2HP PRN PRN Reason: Pain Last Admin: 06/02/19 22:20 Dose: 0.5 mg Documented by: Insulin Glargine (Lantus) [address] [facility] Insulin Human Lispro (Humalog) 0 unit SQ [facility]; Protocol Last Admin: 06/02/19 22:15 Dose: 4 units Documented by: Levothyroxine Sodium (Synthroid) 75 mcg PO QAMAC [facility] Metoprolol Tartrate (Lopressor) 5 mg IV Q2HP PRN PRN Reason: Tachyarrhythmias HR>110 Midodrine (Midodrine Hcl) 5 mg PO TID [facility] Ondansetron HCl (Zofran) 4 mg IV Q4HP PRN PRN Reason: Nausea And Vomiting Polyethylene Glycol (Miralax) 17 gm PO DAILYP PRN PRN Reason: Constipation Promethazine HCl (Phenergan) 12.5 mg IV Q6HP PRN PRN Reason: Nausea And Vomiting Senna (Senokot) 2 tab PO DAILYP PRN PRN Reason: Constipation Sodium Chloride (Saline Flush) 10 ml IV Q8 [facility] Last Admin: 06/03/19 06:01 Dose: Not Given Documented by: Medical - PN: A/P - Time Spent With Patient Total time spent is greater than 50% in coordination of care (as documented) at patient's floor/unit and/or counseling patient: - Narrative A/P Narrative: *Left Distal femur Fx s/p GLF, no LOC: *ESRD (MWF): Follows with Dr. Loco -yaya at baseline *Recurrent Ascites: suspected to be related to CHF vs ESRD and gets regular paracentesis *Anemia, chronic: *h/o systolic CHF (EF 25-30% on 09/2015): on BB -on 2L O2 @baseline *PAF: on digoxin *Chronic LBBB: *DM: on levemir *Hypothyroidism: *History of colovaginal fistula: Followed by surgery, deemed extremely high risk for surgery *Obesity: * P: -Patient is extremely high risk for surgery but with no good alternative for conservative treatment. Patient understands the risks perioperatively including but is willing to undergo the risk in order to be ambulatory and functional thereafter. No cardiopulmonary symptoms at this time beyond baseline. -Dr. Restrepo for orthopedic surgery -Dr. Loco following -likely surgery today after HD -home basal insulin and SSI -cont Dig, prn lopressor -pt/ot -ppx: SCD, post-op per Ortho, consider warfarin given her Afib and ESRD Medical - PN: Qual - VTE Deep Vein Thrombosis/Pulmonary Embolism Present on Admission: No
--- NOTE | 2019-06-03 07:52 | XRay Report ---
HISTORY: Left knee pain after a fall FINDINGS: There is an acute severely comminuted supracondylar fracture the distal femur. The shaft is displaced medially and posteriorly. The articular surface is rotated. On the AP view there is a cortical defect along the intercondylar aspect of the lateral femoral condyle. I cannot identify a fracture line extending from this defect to the supracondylar component of the fracture. The proximal tibia and fibula are normal. The patella is intact. There is a joint effusion. IMPRESSION: severely comminuted and displaced fracture of the distal femur. This may extend into the lateral joint compartment Interpreted and Authenticated by: Giancarlo Haney 06/03/19
[2019-06-03] MEDS: INSULIN LISPRO 1 UNIT/0.01 ML UNIT SQ SCH ×4 (07:56→22:33)
[2019-06-03] MEDS: DOCUSATE SODIUM 100 MG CAPSULE PO SCH ×2 (07:56→22:33)
[2019-06-03] MEDS: INSULIN GLARGINE, HUMAN 1 UNIT/0.01 ML SQ SCH (08:15)
[2019-06-03] MEDS: MIDODRINE 5 MG TABLET PO SCH ×3 (08:15→22:11)
--- NOTE | 2019-06-03 08:29 | XRay Report ---
HISTORY: Preop for Fractured left knee FINDINGS: There is mild consolidation of the left lung base with pleural thickening. This has not changed significantly since 04/16/19. The remainder the lung montelongo are clear. The heart is mildly enlarged. There is no congestive heart failure. Arthritis is present in both shoulders. IMPRESSION: Pleural thickening at the left lung base which could be a persistent small pleural effusion, or pleural scar. There also appears to be mild atelectasis or scar in the adjacent basilar segment of the left lower lobe. Stable cardiomegaly Interpreted and Authenticated by: Giancarlo Haney 06/03/19
--- NOTE | 2019-06-03 08:52 | Cat Scan Report ---
History: Fell and hit head TECHNIQUE: The brain was imaged without contrast at 2.5 mm intervals. Sagittal and coronal reformats were created. The radiation exposure was limited using dose reduction technology. FINDINGS: Patient has mild to moderate generalized cerebral atrophy. There is no evidence of an infarct, hemorrhage, edema or mass effect. No abnormal extra-axial fluid collection is present. The ventricles are prominent but proportionate to the atrophy. Bone windows show no skull fracture. IMPRESSION: Age-related degenerative changes and no acute abnormality Interpreted and Authenticated by: Giancarlo Haney 06/03/19
--- NOTE | 2019-06-03 09:12 | Consultation ---
DATE OF CONSULTATION: 06/03/2019 REFERRING PHYSICIAN: Silas Jose D.O. REASON FOR CONSULTATION: End-stage renal disease. HISTORY OF PRESENT ILLNESS: The patient is an 78-year-old female with past medical history significant for end-stage renal disease on hemodialysis who dialyzes Thursday, Thursday, Fridays at [facility]. She also has history of chronic congestive heart failure and lately she has been having more ascitic fluid and possibly related to congestive heart failure which has caused more of a cirrhosis of liver presentation. She was supposed to see Dr. Rod and have of possible TIPS procedure done. She was returning home from the doctor's appointment, while walking through the front door, tripped on the doorway and fell. She hurt her left leg with instant pain, and she was found to have a fracture of the left distal femur. Dr. Restrepo will be operating on her today. PAST MEDICAL HISTORY: Significant for: 1. End-stage renal disease on hemodialysis and dialyzes Thursday, Thursday, and Fridays. 2. History of end-stage heart disease which has been stable on dialysis. She had an echocardiogram showing an EF of 25 to 30% in 2016. She is on home O2. 3. Chronic atrial fibrillation. 4. Hypothyroidism. 5. Colovaginal fistula which is not fixed. 6. Diabetes. PAST SURGICAL HISTORY: 1. Total abdominal hysterectomy with bilateral salpingo-oophorectomy. 2. Cholecystectomy. FAMILY HISTORY: Mother had lung cancer. SOCIAL HISTORY: The patient quit smoking 40 years ago. She drinks alcohol very rarely. Currently stays with her at home. MEDICATIONS AT HOME: 1. Glargine insulin 5 units in the morning. 2. Levothyroxine one tablet once daily. 3. Cholecalciferol 10,000 units three times a week. 4. Digoxin 0.125 mg three times a week. 5. Colace 100 mg twice daily. 6. Midodrine 5 mg p.o. three times daily. ALLERGIES: 1. PENICILLIN. 2. MORPHINE. 3. QUINAPRIL. 4. CODEINE. REVIEW OF SYSTEMS: Ten systems were reviewed and as indicated in present illness. PHYSICAL EXAMINATION: GENERAL: Alert, oriented and not in any distress. VITAL SIGNS: Blood pressures are 90-100 systolic with a diastolic in the 60s, pulse rates have been in the one-teens. HEENT: NC/AT. Pupils are reactive. External ear and tympanic membranes appear normal. Oral cavity is normal with normal mucosa. NECK: Supple. No jugular venous distention. No lymphadenopathy. No thyromegaly. LUNGS: Decreased air entry bilaterally. No rales or rhonchi heard. CARDIAC: S1 and S2. No S3 or S4. She has a 3/6 systolic murmur. ABDOMEN: Soft, nontender, slightly distended. EXTREMITIES: Showed 2+ edema and difficult to palpate her dorsal pedis and posterior tibials. No skin rash or joint swellings noted. NEURO: Appears grossly intact. LABORATORY DATA: White count is 12.3 with a hemoglobin of 10.8 and a platelet count of 266. Sodium 137, potassium 4.6, chloride of 98, CO2 of 44, BUN of 40, creatinine of 4.1. ASSESSMENT AND PLAN: 1. End-stage renal disease on hemodialysis. She dialyzes Mondays, Wednesdays, and Fridays. We will dialyze her today and remove about 1200 to 1500 net fluid. 2. Electrolytes look okay. We will dialyze her with a potassium of 3.0. 3. Anemia, multifactorial. Hemoglobin is stable. 4. Fracture, left femur. She will have surgery today. Thank you, Dr. Jose, for referring this patient for a consultation. I will follow with you. Bee Job ID: [id number] Doc ID: [id number] Cristian Loco MD
--- NOTE | 2019-06-03 10:00 | Consultation ---
DATE OF CONSULTATION: 06/03/2019 CHIEF COMPLAINT: Left knee pain. HISTORY OF PRESENT ILLNESS: This is an 78-year-old female with multiple medical comorbidities who tripped on her front doorway, falling, having severe left leg pain. She denies loss of consciousness. She denies any other significant injury. She has severe pain in the leg made worse with any sort of movement, better with immobility. Her pain is all localized about the knee. She was taken to the emergency department. X-rays showed a comminuted distal femur fracture. She is admitted to hospitalist service for medical clearance and has been deemed to be high risk for surgery; however, she is as optimized as possible. PAST MEDICAL HISTORY: Diabetes, end-stage renal disease on dialysis, chronic anemia, heart failure, atrial fibrillation and hypothyroidism. She also has a colovaginal fistula. PAST SURGICAL HISTORY: Total abdominal hysterectomy, cholecystectomy. MEDICATIONS: 1. Insulin. 2. Levothyroxine. 3. Digoxin. 4. Midodrine. 5. Vitamin D3. 6. Colace. ALLERGIES: PENICILLIN, MORPHINE, QUINAPRIL, AND CODEINE. SOCIAL HISTORY: She has a remote history of smoking, drinks alcohol rarely. She resides at home with her . FAMILY HISTORY: Positive for mother with lung cancer. REVIEW OF SYSTEMS: Negative for fever or chills, no chest pain or shortness of breath at this time. No loss of conscious, seizures, or strokes. PHYSICAL EXAMINATION: VITAL SIGNS: Most recent: Temperature 97.8, pulse 100, respirations 16, blood pressure 82/48, saturating 97% on 2 liters nasal cannula. GENERAL: She appears her stated age, in mild to moderate distress. She is oriented to person and place. Mood and affect are appropriate. EXTREMITIES: Bilateral upper extremities and right lower extremity show no obvious evidence of significant injury and are normal to inspection, range of motion, stability and strength. The left lower extremity shows deformity at the knee. She has skin that is intact. She has limited movement due to pain. Stability is grossly unstable. She weakly flexes and extends the foot and toes 3/5. Pedal pulses not palpable. Capillary refill is brisk, however. HEART: Irregularly irregular. LUNGS: Clear. IMAGING: X-rays reviewed shows a severely comminuted distal femur fracture with profound osteoporosis. LABORATORY DATA: Hemoglobin this morning 10.8. Her INR is 1.1. IMPRESSION: Closed comminuted extraarticular left distal femur fracture in an 78-year-old female with severe comorbidities including diabetes with dialysis-dependent renal disease and congestive heart failure, who was previously ambulatory. PLAN: After discussion with her and the hospitalists, even though she is extremely high risk for surgery, she is willing to accept the risks, including possible because nonoperative treatment would no longer allow her ability to ambulate and would likely result in significant pain and challenges with transfers. I recommend proceeding with open treatment and internal fixation of the left closed distal femur fracture with plate fixation. Risks of surgery discussed include, but not limited to, bleeding, possibly requiring transfusion; infection, possibly requiring hardware removal, injury to nerves, blood vessels other surrounding structures; anesthetic risks; nonunion or malunion of the fracture; failure of hardware fixation; possibility of needing further surgery, and anesthetic risks include heart attack, stroke or . She understands and wishes to proceed. We will proceed as soon as possible today. BJB:lynn Job ID: [id number] Doc ID: [id number] Tristian Restrepo MD
[2019-06-03] MEDS: LEVOTHYROXINE 75 MCG TABLET PO SCH (11:21)
[2019-06-03] MEDS ORDERED: ceFAZolin 2 GM in DEXTROSE 5% IN WATER 50 ML IV SCH ×2 (11:30→13:30)
[2019-06-03] MEDS ORDERED: ceFAZolin 1 GM VIAL ONE ×2 (11:41→22:22)
[2019-06-03] MEDS ORDERED: DEXAMETHASONE 10 MG/ML VIAL IV ONE (12:00)
[2019-06-03] MEDS ORDERED: fentaNYL 100 MCG/2 ML VIAL IV ONE (12:00)
[2019-06-03] MEDS ORDERED: PROPOFOL 200 MG/20 ML VIAL IV ONE (12:00)
[2019-06-03] MEDS ORDERED: PHENYLEPHRINE 10 MG/ML VIAL IV ONE (12:00)
[2019-06-03] MEDS ORDERED: LIDOCAINE HCL/PF 100 MG/5 ML SYRINGE IV ONE (12:00)
[2019-06-03] MEDS ORDERED: KETAMINE 100 MG/ML ML IV ONE (12:00)
--- NOTE | 2019-06-03 13:17 | Brief Operative Note ---
Date of procedure: 06/03/19 Pre-op diagnosis: Comminuted closed Left distal femur fracture Post-op diagnosis: same Procedure: Open treatment internal fixation of Left supracondylar femur fracture Grafts/Implants: Yes ([place] distal femur plate) Anesthesia: GETA Findings: severe comminution Complications: none Surgeon: Tristian Restrepo Hadoop Administrator: Valdez Bradley Estimated blood loss (cc): 150 Specimens Removed/Pathology: none sent Condition: other (guarded) Disposition: PACU
[2019-06-03] MEDS ORDERED: BENZOCAINE/MENTHOL 1 LOZENGE PO PRN ×2 (13:18→13:21)
[2019-06-03] MEDS ORDERED: IPRATROPIUM/ALBUTEROL 3 ML AMPUL.NEB NEB PRN (13:21)
[2019-06-03] MEDS ORDERED: FLUMAZENIL 0.1 MG/ML ML IV PRN (13:21)
[2019-06-03] MEDS ORDERED: NALOXONE HCL 0.4 MG/ML VIAL IV PRN (13:21)
[2019-06-03] MEDS ORDERED: ACETAMINOPHEN 1,000 MG/100 ML BOTTLE IV ONE (13:21)
[2019-06-03] MEDS ORDERED: LACTATED RINGERS 250 ML IV PRN (13:21)
[2019-06-03] MEDS ORDERED: fentaNYL 100 MCG/2 ML VIAL IV PRN (13:21)
[2019-06-03] MEDS ORDERED: LACTATED RINGERS 1,000 ML IV SCH (13:30)
[2019-06-03] MEDS ORDERED: DIGOXIN 125 MCG TABLET PO SCH (14:00)
--- NOTE | 2019-06-03 14:43 | Operative Note ---
DATE OF OPERATION: 06/03/2019 PREOPERATIVE DIAGNOSIS: Comminuted left distal femur fracture, closed. POSTOPERATIVE DIAGNOSIS: Comminuted left distal femur fracture, closed. PROCEDURE PERFORMED: Open treatment and internal fixation of the comminuted closed left supracondylar distal femur fracture using a [place] distal femur plate. SURGEON: Tristian Restrepo MD SALES INCENTIVE ANALYST: Cori Bah PA-C. This provider's expertise and technical skill were required throughout the case. The PA assisted with preoperative coordination, intraoperative retraction, wound closure, dressing and splint application, as well as postoperative documentation and care coordination. ANESTHESIA: General. DRAINS: None. SPECIMENS: None. COMPLICATIONS: None. BLOOD LOSS: 150 mL POSTOPERATIVE CONDITION: Guarded. INDICATIONS FOR SURGERY: This is an 78-year-old female with multiple severe medical comorbidities who sustained a mechanical fall yesterday. She had severe pain and inability to bear weight. X-rays showed a severely comminuted distal femur fracture as well as severe osteoporosis. FINDINGS AT SURGERY: Severe osteoporosis. Post-fixation showed satisfactory plate and hardware placement with satisfactory fracture reduction. PROCEDURE IN DETAIL: The patient had been seen preoperatively. Informed consent had been obtained after discussion of risks, benefits of surgery. Risks including, but not limited to, bleeding, possibly requiring transfusion; infection, injury to nerves, blood vessels or other surrounding structures; anesthetic risks; nonunion or malunion of the fracture; failure of hardware fixation, anesthetic risks including heart attack, stroke or . She understood these risks and wished to proceed. Correct operative site was marked and the patient was taken to the operating room. General anesthesia was induced. The left lower extremity was carefully positioned in the fracture table with some traction. The right lower extremity was flexed and placed all the way and carefully padded. The leg and femur were then carefully prepped and draped in normal sterile fashion and a timeout was performed verifying patient name, operative site, and plan. Ioban shower curtain was used and then a distal incision was made laterally over the knee with a scalpel through skin and subcutaneous tissue. Hemostasis was obtained with Bovie cautery. We then continued with Bovie through the IT band. A large fracture hematoma was evacuated. We then chose appropriate length [place] distal femur plate that would give us adequate fixation proximally. This was placed on the targeter and then slid up submuscularly along the femoral shaft. Position was best fit distally and we then checked with fluoroscopy on AP and lateral views and then pinned this with a wire. We then went proximally and centered the plate proximally over the femur and then placed a preliminary fixation pin. We then went back to the AP. The shaft was a ways away from the plate at the fracture site, so we did do another pin and used the screw device to bring the shaft of the bone to the plate. Once fracture reduction was satisfactory we drilled and placed locking screws throughout the distal cluster. The distal posterior ones were placed only in the lateral femoral condyle, so as to not violate the notch. We then went proximally and drilled and placed a total of 4 bicortical locking screws in the shaft. The targeter was then removed and we placed two nonlocking screws in the remaining distal cluster. This gave us good number of screws distally and 8 cortices of fixation proximally. We then saved those final fluoro images, AP and laterals of the proximal fracture site and distal. We then irrigated copiously with Asepto syringe and #1 Vicryl was used to close the IT band with running stitch. More irrigation was used and then fat was tacked to fascia with Vicryl, 2-0 Monocryl used for subcutaneous and theodora for skin. Xeroform ad sterile dressing were applied. The patient was then awakened, extubated, and transferred to recovery in guarded condition. BJB:lynn Job ID: [id number] Doc ID: [id number] Tristian Restrepo MD
[2019-06-03] MEDS ORDERED: WARFARIN 5 MG TABLET PO ONE (15:30)
--- NOTE | 2019-06-03 15:41 | XRay Report ---
HISTORY: FINDINGS: IMPRESSION: 0.8 minutes of fluoroscopy time was used. Interpreted and Authenticated by: Giancarlo Haney 06/03/19
[2019-06-03] MEDS: ceFAZolin 1 GM VIAL IV SCH (22:31)
[2019-06-03] MEDS: FAMOTIDINE/PF 20 MG/2 ML VIAL IV SCH (22:32)
[2019-06-04] MEDS: oxyCODONE/APAP 5/325MG TABLET PO PRN ×3 (00:17→16:38)
[2019-06-04] MEDS: 0.9 % SODIUM CHLORIDE 10 ML SYRINGE IV SCH ×3 (05:23→22:34)
[2019-06-04] MEDS: ceFAZolin 1 GM VIAL IV SCH (05:23)
[2019-06-04 06:37] LABS: Basophils # (Auto) 0 K/mcL (0.0-0.3); Basophils % (Auto) 0.2 % (0.0-2.0); Eosinophils # (Auto) 0 K/mcL (0.0-0.7); Eosinophils % (Auto) 0.3 % (0.0-7.0); Hematocrit 29.7 % (36.0-48.0); Hemoglobin 9.9 g/dL (12.0-15.0); Lymphocytes % (Auto) 10.7 % (15.5-49.0); Mean Cell Volume 95.4 fL (80.0-100.0); Mean Corpuscular HGB Conc 33.4 g/dL (31.0-36.0); Mean Platelet Volume 8.4 fL (7.4-10.4); Monocytes # (Auto) 0.6 K/mcL (0.1-0.9); Monocytes % (Auto) 6.8 % (1.0-12.0); Platelet Count 280 K/mcL (140-440); RBC 3.11 M/mcL (4.00-5.20); Red Cell Distribution Width 14.9 % (11.5-14.5); WBC 8.9 K/mcL (4.5-11.0)
[2019-06-04 06:38] LABS: INR 1.2 (0.9-1.1); Prothrombin Time 15.5 sec (11.9-14.5)
[2019-06-04 06:51] LABS: ALT/SGPT 15 U/l (0-40); AST/SGOT 38 U/l (0-37); Albumin 2.5 gm/dL (3.2-5.2); Albumin/Globulin Ratio 0.8 (1.0-2.3); Alkaline Phosphatase 187 U/L (39-117); Calcium 8.3 mg/dl (8.6-10.4); Carbon Dioxide 28 mmol/L (22-30); Chloride 96 mmol/L (96-108); Globulin 3.1 gm/dL (2.2-3.7); Glucose 171 mg/dL (70-105); Lactate Dehydrogenase 197 U/L (94-250); Phosphorous 3.9 mg/dL (2.7-4.5); Triglycerides 88 mg/dl (<150); Uric Acid 2.8 mg/dL (2.5-8.0)
[2019-06-04 06:53] LABS: Bilirubin,Direct 0.6 mg/dL (0.0-0.3); Blood Urea Nitrogen 25 mg/dl (8-23); Glomerular Filtration Rate 16
--- NOTE | 2019-06-04 07:35 | Internal Med Progress Note ---
Medical - PN: Subj Patient information: Note initiated : 06/04/19 at 7:31 am Service Date, if different from initiated Date: [] Patient: Shannon Alarcon 78 y/o F admitted on 06/02/19 for Left knee pain. Chief Complaint: [] Interval history: Ms. Alarcon is a 78 year old F With significant comorbidities who is returning home from a doctor's appointment and while walking through her front door tripped on the doorway falling on her left leg with instant pain. She did not pass out. She did hit the top of her head with a noted abrasion. She denies any chest pain shortness of breath coughing. Has some nausea but no vomiting. No headache. She is chronically incontinent of stool. Is on chronic oxygen 2 L daily. She was on hospice in the past and [place] for just of heart failure. Has a history of atrial fibrillation and is on digoxin, she was on carvedilol in the past but that was stopped due to low blood pressure. She does not recall being on any anticoagulation. She undergoes dialysis with Dr. Loco Thursday. She also gets paracentesis on a regular basis for ascites which is felt to be related to her end-stage renal disease. Laboratory work is pending. She was found to have a comminuted distal left femur fracture. Case was discussed with Dr. Restrepo. This is also discussed with Dr. Loco who will dialyze the patient in the morning and patient will likely be able to undergo surgery afterwards. Patient is extremely high risk for surgery and I discussed case with Dr. Restrepo. There is no reasonable alternative conservative treatment. She does function at home with her and uses a walker. She seems to understand her significant risk including perioperatively. And is willing to take the risk of surgery in order to be able to be ambulatory and functional afterwards. 06/03 Pain to the left knee. No overnight events. For surgery today as well as dialysis. Patient high risk for surgery as previously noted. This is unknown why she is not on anticoagulation. 06/04 Patient underwent surgery yesterday and tolerated procedure. Leg pain has improved since surgery. No overnight events or new complaints. Review of Systems: denies headache/fever/chills/nausea/vomiting/chest or abdominal pain/cough/dyspnea/diarrhea. Otherwise see above. - Constitutional Vitals: Vital Signs Temp Pulse Resp BP Pulse Ox 97.3 F 89 20 88/43 91 06/04/19 07:00 06/04/19 07:00 06/04/19 07:00 06/04/19 07:00 06/04/19 05:29 Period Temp Pulse Resp BP Sys/Fonseca Pulse Ox Last 24 Hr 97.2 F-99.1 F 61-105 14-24 77-96/34-61 84-100 Intake and Output 06/03/19 06/04/19 06/04/19 21:59 05:59 13:59 Intake Total 200 150 Output Total 1400 Balance -1200 150 Weight 84.731 kg Intake & Output: Intake & Output 06/03/19 06/04/19 06/04/19 21:59 05:59 13:59 Intake Total 200 150 Output Total 1400 Balance -1200 150 Weight 84.731 kg Intake: IV 100 Oral 100 150 Output: Hemodialysis UF 1400 Other: Meal Tuna fish/crackers Percent of Meal Consumed 75% Feeding Ability Assist with Tray Set Up Stool Size Small Stool Color Brown Stool Consistency Loose Normal for Patient Loose # of times incontinent of 1 Bowels Exam: General: Alert, Awake, No acute Distress, obese Eyes/N/T: EOMI, Head/Neck: neck supple, CV: Regular at this time, no murmur Pulm: Clear b/l, no wheezing/rhonchi/rales Abd: soft, nontender, +BS x4 Ext: no clubbing/cyanosis, 2+ b/l LE chronic Neuro: Alert, no focal deficits, moves all extremities, Skin: warm/dry Medical - PN: Obj Da - Labs CBC & Chem 7: 06/04/19 04:29 06/04/19 04:29 Labs: Abnormal Lab Results 06/04/19 06/04/19 06/04/19 04:29 04:29 04:29 WBC RBC 3.11 L Hgb 9.9 L Hct 29.7 L POC Hct RDW 14.9 H Gran % 82.0 H Lymph % (Auto) 10.7 L Gran # Lymph # (Auto) 1.0 L PT 15.5 H INR 1.2 H POC BUN BUN 25 H Creatinine 2.7 H POC Creatinine Glucose 171 H POC Glucose Calcium 8.3 L POC WB Ioniz Calcium Total Bilirubin Direct Bilirubin 0.6 H GGT 112 H AST 38 H Alkaline Phosphatase 187 H Total Protein 5.6 L Albumin 2.5 L Albumin/Globulin Ratio 0.8 L 06/03/19 06/03/19 06/02/19 05:21 05:21 19:51 WBC 12.3 H RBC 3.35 L Hgb 10.8 L Hct 32.7 L POC Hct 35.0 L RDW 15.5 H Gran % 84.6 H Lymph % (Auto) 8.9 L Gran # 10.4 H Lymph # (Auto) 1.1 L PT INR POC BUN 36 H BUN 40 H 36 H Creatinine 4.1 H 3.7 H POC Creatinine 4.3 H Glucose 170 H 150 H POC Glucose 166 H Calcium POC WB Ioniz Calcium 1.02 L Total Bilirubin 1.8 H 1.8 H Direct Bilirubin 1.0 H GGT 131 H AST Alkaline Phosphatase 218 H 242 H Total Protein Albumin 2.6 L 2.8 L Albumin/Globulin Ratio 0.7 L 0.8 L 06/02/19 19:51 WBC 17.9 H RBC 3.53 L Hgb 11.4 L Hct 33.7 L POC Hct RDW 15.6 H Gran % 93.1 H Lymph % (Auto) 2.8 L Gran # 16.6 H Lymph # (Auto) 0.5 L PT INR POC BUN BUN Creatinine POC Creatinine Glucose POC Glucose Calcium POC WB Ioniz Calcium Total Bilirubin Direct Bilirubin GGT AST Alkaline Phosphatase Total Protein Albumin Albumin/Globulin Ratio Meds: Medications Acetaminophen (Tylenol) 650 mg PO Q6HP PRN PRN Reason: PAIN/FEVER > 101 Last Admin: 06/03/19 18:58 Dose: 650 mg Documented by: Albuterol/Ipratropium (Duoneb) 3 ml NEB Q4HP PRN PRN Reason: Shortness Of Breath Dextrose (Dextrose 50%) 0 ml IV UD PRN PRN Reason: Hypoglycemia Diagnostic Test (Pha) (Accu-Chek) 1 each FS ACHS [facility] Last Admin: 06/03/19 22:32 Dose: 1 each Documented by: Digoxin (Lanoxin) 125 mcg PO MoWeFr@1400 [facility] Last Admin: 06/03/19 15:32 Dose: 125 mcg Documented by: Docusate Sodium (Colace) 100 mg PO BID [facility] Last Admin: 06/03/19 22:33 Dose: Not Given Documented by: Famotidine (Pepcid) 20 mg IV HS [facility] Last Admin: 06/03/19 22:32 Dose: 20 mg Documented by: Glucose (Insta-Glucose) 15 gm PO PRN PRN PRN Reason: Hypoglycemia Hydromorphone HCl (Dilaudid) 0 mg IV Q2HP PRN PRN Reason: Pain Last Admin: 06/02/19 22:20 Dose: 0.5 mg Documented by: Insulin Glargine (Lantus) 5 unit SQ [facility] Last Admin: 06/03/19 08:15 Dose: Not Given Documented by: Insulin Human Lispro (Humalog) 0 unit SQ [facility]; Protocol Last Admin: 06/03/19 22:33 Dose: 4 units Documented by: Levothyroxine Sodium (Synthroid) 75 mcg PO [facility] Last Admin: 06/03/19 11:21 Dose: Not Given Documented by: Metoprolol Tartrate (Lopressor) 5 mg IV Q2HP PRN PRN Reason: Tachyarrhythmias HR>110 Midodrine (Midodrine Hcl) 5 mg PO TID [facility] Last Admin: 06/03/19 22:11 Dose: 5 mg Documented by: Ondansetron HCl (Zofran) 4 mg IV Q4HP PRN PRN Reason: Nausea And Vomiting Oxycodone/Acetaminophen (Percocet 5-325 Mg) 0 tab PO Q4HP PRN; Protocol PRN Reason: Per Pain Protocol Last Admin: 06/04/19 00:17 Dose: 1 tab Documented by: Polyethylene Glycol (Miralax) 17 gm PO DAILYP PRN PRN Reason: Constipation Promethazine HCl (Phenergan) 12.5 mg IV Q6HP PRN PRN Reason: Nausea And Vomiting Senna (Senokot) 2 tab PO DAILYP PRN PRN Reason: Constipation Sodium Chloride (Saline Flush) 10 ml IV Q8 [facility] Last Admin: 06/04/19 05:23 Dose: 10 ml Documented by: Throat Lozenges (Cepacol) 1 lozenge PO PRN PRN PRN Reason: Sore Throat Warfarin Sodium (Coumadin Per Pharmacy) 1 order PO [facility] Medical - PN: A/P - Time Spent With Patient Total time spent is greater than 50% in coordination of care (as documented) at patient's floor/unit and/or counseling patient: - Narrative A/P Narrative: *Left Distal femur Fx s/p GLF, no LOC: *ESRD (MWF): Follows with Dr. Loco -yaya at baseline *Recurrent Ascites: suspected to be related to CHF vs ESRD and gets regular paracentesis *Anemia, chronic: *h/o systolic CHF (EF 25-30% on 09/2015): on BB -on 2L O2 @baseline *PAF: on digoxin *Chronic LBBB: *DM: on levemir *Hypothyroidism: *History of colovaginal fistula: Followed by surgery, deemed extremely high risk for surgery *Obesity: * P: -Patient is extremely high risk perioperatively -Dr. Restrepo for orthopedic surgery -Dr. Loco following -home basal insulin and SSI -cont Dig, prn lopressor -pt/ot -ppx: warfarin per pharm Medical - PN: Qual - VTE Deep Vein Thrombosis/Pulmonary Embolism Present on Admission: No
[2019-06-04] MEDS: INSULIN LISPRO 1 UNIT/0.01 ML UNIT SQ SCH ×4 (08:25→22:32)
[2019-06-04] MEDS: LEVOTHYROXINE 75 MCG TABLET PO SCH (08:26)
[2019-06-04] MEDS ORDERED: DENOSUMAB 60 MG/ML SYRINGE SQ ONE (08:38)
[2019-06-04] MEDS: INSULIN GLARGINE, HUMAN 1 UNIT/0.01 ML SQ SCH (08:52)
[2019-06-04] MEDS: DOCUSATE SODIUM 100 MG CAPSULE PO SCH ×2 (08:53→22:32)
[2019-06-04] MEDS: MIDODRINE 5 MG TABLET PO SCH ×3 (08:53→22:33)
--- NOTE | 2019-06-04 09:15 | Orthopedic Progress Note ---
Subjective Patient information: Note initiated : 06/04/19 at 9:12 am Service Date, if different from initiated Date: [] Patient: Shannon Alarcon 78 y/o F admitted on 06/02/19 for Left knee pain. Chief Complaint: [minimal pain and is alert and no cp or sob and eating well post op day 1. Principal diagnosis: Right supracondylar femur fx Objective Vital signs: Vital Signs Temp Pulse Pulse Pulse Resp BP BP 06/04/19 08:00 97.3 F 89 20 06/04/19 07:00 97.3 F 89 20 88/43 06/04/19 05:29 91 H 18 94/46 06/04/19 04:00 98.3 F 85 18 86/48 06/04/19 03:49 06/04/19 03:00 06/04/19 02:00 88 18 85/47 06/04/19 00:53 06/04/19 00:00 97.4 F 89 18 86/46 06/03/19 22:59 94 H 20 96/53 06/03/19 21:45 97.4 F 92 H 90/44 06/03/19 21:30 90 86/43 06/03/19 21:15 83 92/46 06/03/19 21:00 97.4 F 90 20 06/03/19 20:54 91 H 90/47 06/03/19 20:45 99 H 93/42 06/03/19 20:30 100 H 94/46 06/03/19 20:15 91 H 90/46 06/03/19 20:00 87 87/47 06/03/19 19:45 89 91/48 06/03/19 19:30 89 92/47 06/03/19 19:15 90 94/50 06/03/19 19:00 96 H 90 18 91/50 94/48 06/03/19 18:45 105 H 88/49 06/03/19 18:29 100 H 90/48 06/03/19 18:15 97 H 90/48 06/03/19 17:59 94 H 89/52 06/03/19 17:45 97 H 90/52 06/03/19 17:29 97.2 F 103 H 82/45 06/03/19 17:00 100 H 16 94/37 06/03/19 15:00 16 80/41 06/03/19 14:22 102 H 21 06/03/19 14:12 97.8 F 102 H 22 06/03/19 14:02 102 H 24 H 06/03/19 13:52 102 H 19 06/03/19 13:47 100 H 15 06/03/19 13:42 100 H 14 06/03/19 13:37 99.1 F H 61 83 20 86/61 06/03/19 11:00 102 H 19 BP Pulse Ox 06/04/19 08:00 88/43 96 06/04/19 07:00 06/04/19 05:29 91 06/04/19 04:00 94 06/04/19 03:49 94 06/04/19 03:00 84 L 06/04/19 02:00 90 06/04/19 00:53 95 06/04/19 00:00 97 06/03/19 22:59 93 06/03/19 21:45 06/03/19 21:30 06/03/19 21:15 06/03/19 21:00 96 06/03/19 20:54 06/03/19 20:45 06/03/19 20:30 06/03/19 20:15 06/03/19 20:00 06/03/19 19:45 06/03/19 19:30 06/03/19 19:15 06/03/19 19:00 97 06/03/19 18:45 06/03/19 18:29 06/03/19 18:15 06/03/19 17:59 06/03/19 17:45 06/03/19 17:29 06/03/19 17:00 95 06/03/19 15:00 96 06/03/19 14:22 82/34 97 06/03/19 14:12 77/44 98 06/03/19 14:02 78/45 98 06/03/19 13:52 94/49 100 06/03/19 13:47 89/51 96 06/03/19 13:42 86/61 100 06/03/19 13:37 97 06/03/19 11:00 92/46 97 Intake and Output 06/03/19 06/04/19 06/04/19 21:59 05:59 13:59 Intake Total 200 150 Output Total 1400 Balance -1200 150 Intake: IV 100 Oral 100 150 Output: Hemodialysis UF 1400 Other: Meal Tuna fish/crackers Percent of Meal Consumed 75% Feeding Ability Assist with Tray Set Up Stool Size Small Stool Color Brown Stool Consistency Loose Normal for Patient Loose # of times incontinent of 1 Bowels Weight 186 lb 12.8 oz Intake & Output: Intake & Output 06/03/19 06/04/19 06/04/19 21:59 05:59 13:59 Intake Total 200 150 Output Total 1400 Balance -1200 150 Weight 186 lb 12.8 oz Intake: IV 100 Oral 100 150 Output: Hemodialysis UF 1400 Other: Meal Tuna fish/crackers Percent of Meal Consumed 75% Feeding Ability Assist with Tray Set Up Stool Size Small Stool Color Brown Stool Consistency Loose Normal for Patient Loose # of times incontinent of 1 Bowels Incision: Yes healing Incision clean and dry: Yes Dressing: Yes clean Neurological exam IM: Yes alert, Yes oriented X3, Yes neurovascular intact Extremities exam IM: Yes Foot pink and warm - Allied Health Allied health notes reviewed: nursing (will have knee brace to be placed prior to therapy as she is so weak as to protect the scff.) - Labs CBC & BMP: 06/04/19 04:29 06/04/19 04:29 Labs: Orthopedic Labs 06/04/19 06/02/19 04:29 19:51 PT 15.5 H 14.3 INR 1.2 H 1.1 06/04/19 06/03/19 06/02/19 04:29 05:21 19:51 Hgb 9.9 L 10.8 L 11.4 L Hct 29.7 L 32.7 L 33.7 L
[2019-06-04] MEDS ORDERED: 0.9 % SODIUM CHLORIDE 250 ML IV ONE (11:56)
[2019-06-04] MEDS ORDERED: WARFARIN 5 MG TABLET PO ONE (14:30)
[2019-06-04] MEDS: FAMOTIDINE/PF 20 MG/2 ML VIAL IV SCH (22:32)
[2019-06-05] MEDS: HYDROmorphone 2 MG/ML VIAL IV PRN ×2 (01:34→09:40)
[2019-06-05] MEDS: 0.9 % SODIUM CHLORIDE 10 ML SYRINGE IV SCH ×3 (05:44→20:38)
[2019-06-05 06:25] LABS: INR 1.4 (0.9-1.1); Prothrombin Time 16.7 sec (11.9-14.5)
[2019-06-05 06:38] LABS: Calcium 8.3 mg/dl (8.6-10.4); Carbon Dioxide 27 mmol/L (22-30); Chloride 96 mmol/L (96-108); Glucose 68 mg/dL (70-105)
[2019-06-05 06:39] LABS: Blood Urea Nitrogen 36 mg/dl (8-23); Glomerular Filtration Rate 11
[2019-06-05] MEDS: oxyCODONE/APAP 5/325MG TABLET PO PRN ×3 (07:19→15:57)
[2019-06-05] MEDS: LEVOTHYROXINE 75 MCG TABLET PO SCH (07:21)
[2019-06-05] MEDS: INSULIN LISPRO 1 UNIT/0.01 ML UNIT SQ SCH ×4 (07:32→20:41)
--- NOTE | 2019-06-05 07:43 | Internal Med Progress Note ---
Medical - PN: Subj Patient information: Note initiated : 06/05/19 at 7:40 am Service Date, if different from initiated Date: [] Patient: Shannon Alarcon 78 y/o F admitted on 06/02/19 for Left knee pain. Chief Complaint: [] Interval history: Ms. Alarcon is a 78 year old F With significant comorbidities who is returning home from a doctor's appointment and while walking through her front door tripped on the doorway falling on her left leg with instant pain. She did not pass out. She did hit the top of her head with a noted abrasion. She denies any chest pain shortness of breath coughing. Has some nausea but no vomiting. No headache. She is chronically incontinent of stool. Is on chronic oxygen 2 L daily. She was on hospice in the past and [place] for just of heart failure. Has a history of atrial fibrillation and is on digoxin, she was on carvedilol in the past but that was stopped due to low blood pressure. She does not recall being on any anticoagulation. She undergoes dialysis with Dr. Loco Thursday. She also gets paracentesis on a regular basis for ascites which is felt to be related to her end-stage renal disease. Laboratory work is pending. She was found to have a comminuted distal left femur fracture. Case was discussed with Dr. Restrepo. This is also discussed with Dr. Loco who will dialyze the patient in the morning and patient will likely be able to undergo surgery afterwards. Patient is extremely high risk for surgery and I discussed case with Dr. Restrepo. There is no reasonable alternative conservative treatment. She does function at home with her and uses a walker. She seems to understand her significant risk including perioperatively. And is willing to take the risk of surgery in order to be able to be ambulatory and functional afterwards. 06/03 Pain to the left knee. No overnight events. For surgery today as well as dialysis. Patient high risk for surgery as previously noted. This is unknown why she is not on anticoagulation. 06/04 Patient underwent surgery yesterday and tolerated procedure. Leg pain has improved since surgery. No overnight events or new complaints. 06/05 Doing well. No overnight events. No new complaints. Blood pressure continues to be low but patient is completely asymptomatic and feels normal. Review of Systems: denies headache/fever/chills/nausea/vomiting/chest or abdominal pain/cough/dyspnea/diarrhea. Otherwise see above. - Constitutional Vitals: Vital Signs Temp Pulse Resp BP Pulse Ox 97.1 F 94 H 22 89/55 98 06/05/19 04:52 06/05/19 07:23 06/05/19 07:23 06/05/19 07:23 06/05/19 07:23 Period Temp Pulse Resp BP Sys/Fonseca Pulse Ox Last 24 Hr 97.1 F-98.4 F 88-100 14-22 76-94/38-55 91-98 Intake and Output 06/04/19 06/05/19 06/05/19 21:59 05:59 13:59 Intake Total 320 Balance 320 Weight 85.638 kg Intake & Output: Intake & Output 06/04/19 06/05/19 06/05/19 21:59 05:59 13:59 Intake Total 320 Balance 320 Weight 85.638 kg Intake: Oral 320 Other: Stool Size Small Stool Color Brown Stool Consistency Normal for Patient Loose # of times incontinent of 1 Bowels Exam: General: Alert, Awake, No acute Distress, obese Eyes/N/T: EOMI, Head/Neck: neck supple, CV: Regular at this time, 2/6 SM Pulm: subtle rales left base, no wheezing Abd: soft, nontender, +BS x4 Ext: no clubbing/cyanosis, 2+ b/l LE chronic Neuro: Alert, no focal deficits, moves all extremities, Skin: warm/dry Medical - PN: Obj Da - Labs CBC & Chem 7: 06/04/19 04:29 06/05/19 04:46 Labs: Abnormal Lab Results 06/05/19 06/05/19 06/04/19 04:46 04:46 04:29 WBC RBC Hgb Hct POC Hct RDW Gran % Lymph % (Auto) Gran # Lymph # (Auto) PT 16.7 H 15.5 H INR 1.4 H 1.2 H POC BUN BUN 36 H Creatinine 3.7 H POC Creatinine Glucose 68 L POC Glucose Calcium 8.3 L POC WB Ioniz Calcium Total Bilirubin Direct Bilirubin GGT AST Alkaline Phosphatase Total Protein Albumin Albumin/Globulin Ratio 06/04/19 06/04/19 06/03/19 04:29 04:29 05:21 WBC RBC 3.11 L Hgb 9.9 L Hct 29.7 L POC Hct 35.0 L RDW 14.9 H Gran % 82.0 H Lymph % (Auto) 10.7 L Gran # Lymph # (Auto) 1.0 L PT INR POC BUN 36 H BUN 25 H 40 H Creatinine 2.7 H 4.1 H POC Creatinine 4.3 H Glucose 171 H 170 H POC Glucose 166 H Calcium 8.3 L POC WB Ioniz Calcium 1.02 L Total Bilirubin 1.8 H Direct Bilirubin 0.6 H 1.0 H GGT 112 H 131 H AST 38 H Alkaline Phosphatase 187 H 218 H Total Protein 5.6 L Albumin 2.5 L 2.6 L Albumin/Globulin Ratio 0.8 L 0.7 L 06/03/19 06/02/19 06/02/19 05:21 19:51 19:51 WBC 12.3 H 17.9 H RBC 3.35 L 3.53 L Hgb 10.8 L 11.4 L Hct 32.7 L 33.7 L POC Hct RDW 15.5 H 15.6 H Gran % 84.6 H 93.1 H Lymph % (Auto) 8.9 L 2.8 L Gran # 10.4 H 16.6 H Lymph # (Auto) 1.1 L 0.5 L PT INR POC BUN BUN 36 H Creatinine 3.7 H POC Creatinine Glucose 150 H POC Glucose Calcium POC WB Ioniz Calcium Total Bilirubin 1.8 H Direct Bilirubin GGT AST Alkaline Phosphatase 242 H Total Protein Albumin 2.8 L Albumin/Globulin Ratio 0.8 L Meds: Medications Acetaminophen (Tylenol) 650 mg PO Q6HP PRN PRN Reason: PAIN/FEVER > 101 Last Admin: 06/03/19 18:58 Dose: 650 mg Documented by: Albuterol/Ipratropium (Duoneb) 3 ml NEB Q4HP PRN PRN Reason: Shortness Of Breath Dextrose (Dextrose 50%) 0 ml IV UD PRN PRN Reason: Hypoglycemia Diagnostic Test (Pha) (Accu-Chek) 1 each FS ACHS [facility] Last Admin: 06/05/19 07:32 Dose: 1 each Documented by: Digoxin (Lanoxin) 125 mcg PO MoWeFr@1400 [facility] Last Admin: 06/03/19 15:32 Dose: 125 mcg Documented by: Docusate Sodium (Colace) 100 mg PO BID [facility] Last Admin: 06/04/19 22:32 Dose: Not Given Documented by: Famotidine (Pepcid) 20 mg IV HS [facility] Last Admin: 06/04/19 22:32 Dose: 20 mg Documented by: Glucose (Insta-Glucose) 15 gm PO PRN PRN PRN Reason: Hypoglycemia Hydromorphone HCl (Dilaudid) 0 mg IV Q2HP PRN PRN Reason: Pain Last Admin: 06/05/19 01:34 Dose: 0.25 mg Documented by: Insulin Glargine (Lantus) 5 unit SQ [facility] Last Admin: 06/04/19 08:52 Dose: 5 units Documented by: Insulin Human Lispro (Humalog) 0 unit SQ [facility]; Protocol Last Admin: 06/05/19 07:32 Dose: Not Given Documented by: [facility]) [facility] Last Admin: 06/05/19 07:21 Dose: 75 mcg Documented by: Metoprolol Tartrate (Lopressor) 5 mg IV Q2HP PRN PRN Reason: Tachyarrhythmias HR>110 Midodrine (Midodrine Hcl) 10 mg PO TID [facility] Last Admin: 06/04/19 22:33 Dose: 10 mg Documented by: Ondansetron HCl (Zofran) 4 mg IV Q4HP PRN PRN Reason: Nausea And Vomiting Last Admin: 06/05/19 01:34 Dose: 4 mg Documented by: Oxycodone/Acetaminophen (Percocet 5-325 Mg) 0 tab PO Q4HP PRN; Protocol PRN Reason: Per Pain Protocol Last Admin: 06/05/19 07:19 Dose: 2 tab Documented by: Polyethylene Glycol (Miralax) 17 gm PO DAILYP PRN PRN Reason: Constipation Promethazine HCl (Phenergan) 12.5 mg IV Q6HP PRN PRN Reason: Nausea And Vomiting Senna (Senokot) 2 tab PO DAILYP PRN PRN Reason: Constipation Sodium Chloride (Saline Flush) 10 ml IV Q8 [facility] Last Admin: 06/05/19 05:44 Dose: 10 ml Documented by: Throat Lozenges (Cepacol) 1 lozenge PO PRN PRN PRN Reason: Sore Throat Warfarin Sodium (Coumadin Per Pharmacy) 1 order PO [facility] Medical - PN: A/P - Time Spent With Patient Total time spent is greater than 50% in coordination of care (as documented) at patient's floor/unit and/or counseling patient: - Narrative A/P Narrative: *Left Distal femur Fx s/p GLF, no LOC: *ESRD (MWF): Follows with Dr. Loco -anuric at baseline *Recurrent Ascites: suspected to be related to CHF vs ESRD and gets regular paracentesis *Anemia, chronic: *h/o systolic CHF (EF 30% on 07/2016): on BB -echo in 2017 also showed LV moderately dilated, severe MR, mod-sev TR (reports says pt declined ICD/BiV pacer) -on 2L O2 @baseline *PAF: on digoxin *Chronic LBBB: *DM: on levemir *Hypothyroidism: *History of colovaginal fistula: Followed by surgery, deemed extremely high risk for surgery *Obesity: *Hypotension: pt sbp runs 80-90's per , she is on midodrine 5 tid, this was increased to 10tid P: -Patient is extremely high risk perioperatively -Dr. Restrepo for orthopedic surgery -Dr. Loco following -home basal insulin and SSI -cont Dig, prn lopressor -pt/ot -SNF placement likely thursday -ppx: warfarin per pharm Medical - PN: Qual - VTE Deep Vein Thrombosis/Pulmonary Embolism Present on Admission: No
[2019-06-05] MEDS: MIDODRINE 5 MG TABLET PO SCH ×3 (09:40→20:38)
[2019-06-05] MEDS: INSULIN GLARGINE, HUMAN 1 UNIT/0.01 ML SQ SCH (10:14)
--- NOTE | 2019-06-05 10:48 | Discharge Summary ---
Medical - DS: Prov Patient information: Note initiated : 06/05/19 at 10:45 am Service Date, if different from initiated Date: [] Patient: Shannon Alarcon 78 y/o F admitted on 06/02/19 for Left knee pain. Chief Complaint: [] Date of admission: 06/02/19 20:48 Discharge date: 06/07/19 Primary care physician: Chaparro Mendez Consults: 06/02/19 Consult to Physician [CONS] Stat Comment: Consulting Provider: Tristian Restrepo Reason For Exam: Physician to Consult Consult to Physician [CONS] Stat Comment: Consulting Provider: Silas Jose Reason For Exam: Physician to Consult 06/02/19 21:28 Consult to Physician [CONS] Routine Comment: Consulting Provider: Cristian Loco Reason For Exam: Physician to Consult Medical - DS: Meds - Discharge Medications Prescriptions: oxyCODONE/APAP [Percocet 5-325 mg] 1 tab PO Q6HP PRN #20 tab PRN Reason: Per Pain Protocol Prescription Printed Active and Home Medications: Home Medications Insulin Glargine, Human 5 units SQ QAM #1 01/18/19 [Rx Confirmed 06/02/19 Last Taken 06/01/19 02:00] Levothyroxine [Synthroid] 1 tab PO DAILY 01/18/19 [History Confirmed 06/02/19 Last Taken 06/02/19 06:00] cholecalciferol (vitamin D3) 10,000 unit capsule 10,000 unit PO .Q3Days/Week cap 05/25/19 [History Confirmed 06/02/19 Last Taken 06/01/19 02:00] digoxin 125 mcg (0.125 mg) tablet 125 mcg PO .Q3 Days/Week tab 05/25/19 [History Confirmed 06/02/19 Last Taken 06/01/19 02:00] docusate sodium 100 mg capsule 100 mg PO BID 05/25/19 [History Confirmed 06/02/19 Last Taken 06/02/19 02:00] Midodrine [Midodrine HCl] 5 mg PO TID 06/02/19 [History Confirmed 06/02/19 Last Taken 06/02/19 02:00] Nephro-Serenity Tablet 1 PO QAM 06/02/19 [History Last Taken 06/02/19 02:00] Medical - DS: Hosp Hospital Course: Ms. Alarcon is a 78 year old F With significant comorbidities who is returning home from a doctor's appointment and while walking through her front door tripped on the doorway falling on her left leg with instant pain. She did not pass out. She did hit the top of her head with a noted abrasion. She denies any chest pain shortness of breath coughing. Has some nausea but no vomiting. No headache. She is chronically incontinent of stool. Is on chronic oxygen 2 L daily. She was on hospice in the past and [place] for just of heart failure. Has a history of atrial fibrillation and is on digoxin, she was on carvedilol in the past but that was stopped due to low blood pressure. She does not recall being on any anticoagulation. She undergoes dialysis with Dr. Loco Thursday. She also gets paracentesis on a regular basis for ascites which is felt to be related to her end-stage renal disease. Laboratory work is pending. She was found to have a comminuted distal left femur fracture. Case was discussed with Dr. Restrepo. This is also discussed with Dr. Loco who will dialyze the patient in the morning and patient will likely be able to undergo surgery afterwards. Patient is extremely high risk for surgery and I discussed case with Dr. Restrepo. There is no reasonable alternative conservative treatment. She does function at home with her and uses a walker. She seems to understand her significant risk including perioperatively. And is willing to take the risk of surgery in order to be able to be ambulatory and functional afterwards. 06/03 Pain to the left knee. No overnight events. For surgery today as well as dialysis. Patient high risk for surgery as previously noted. This is unknown why she is not on anticoagulation. 06/04 Patient underwent surgery yesterday and tolerated procedure. Leg pain has improved since surgery. No overnight events or new complaints. 06/05 Doing well. No overnight events. No new complaints. Blood pressure continues to be low but patient is completely asymptomatic and feels normal. 06/06 No new complaints this morning. Patient stable. Appears to be doing well. Stable for discharge. Patient will be planned for discharge tomorrow morning at 10 AM, unless clinical status changes. Discharge diagnosis: Left distal femur fracture end-stage renal disease Secondary discharge diagnosis: Recurrent ascites chronic anemia history of systolic heart failure paroxysmal H fibrillation chronic left bundle branch diabetes hypothyroidism colovaginal fistula obesity - Time Spent with Patient Total time spent providing and/or coordinating discharge services: Greater than 30 minutes Medical - DS: Exam - Constitutional Vitals: Vital Signs Temp Pulse Pulse Resp BP BP Pulse Ox 06/05/19 07:46 98 06/05/19 07:23 94 H 22 89/55 98 06/05/19 06:00 94 H 16 90/50 92 06/05/19 04:52 97.1 F 88 14 90/49 95 06/05/19 02:54 16 81/46 92 06/05/19 01:00 90/55 92 06/04/19 23:00 99 H 16 91/53 92 06/04/19 22:00 97.5 F 96 H 16 94/48 94 06/04/19 21:00 100 H 18 84/49 94 06/04/19 19:00 97.4 F 98 H 20 93 06/04/19 17:00 78/46 06/04/19 15:00 97.6 F 20 84/45 95 06/04/19 14:00 78/44 06/04/19 13:00 82/40 06/04/19 11:00 98.4 F 20 76/38 91 Intake and Output 06/04/19 06/05/19 06/05/19 21:59 05:59 13:59 Intake Total 320 Balance 320 Intake: Oral 320 Other: Stool Size Small Stool Color Brown Stool Consistency Normal for Patient Loose # of times incontinent of 1 Bowels Weight 85.638 kg Medical - DS: Data Labs on day of discharge: Labs from last 24 hours 06/05/19 06/05/19 04:46 04:46 PT 16.7 H INR 1.4 H Sodium 134 Potassium 4.9 Chloride 96 Carbon Dioxide 27 Anion Gap 11.0 BUN 36 H Creatinine 3.7 H GFR Calculation 11 Glucose 68 L Calcium 8.3 L Medical - DS: A/P - Patient/Caregiver Discharge Instructions Activity: as per physical therapy Diet: Renal/Consistent Carbs Prescriptions: oxyCODONE/APAP [Percocet 5-325 mg] 1 tab PO Q6HP PRN #20 tab PRN Reason: Per Pain Protocol Prescription Printed - Follow up Plan Follow up with: Chaparro Mendez ARNP [Primary Care Provider] - Cristian Loco MD [Physician] - Tristian Restrepo MD [Physician] - Disposition: Xfer SNF Prognosis: Fair Rehab Potential: Fair I certify that the patient requires SNF services: Yes Overall status at discharge: patient is progressing back to baseline Medical - DS: Qual - VTE Deep Vein Thrombosis/Pulmonary Embolism Present on Admission: No
[2019-06-05] MEDS: DOCUSATE SODIUM 100 MG CAPSULE PO SCH ×2 (11:06→20:38)
[2019-06-05] MEDS ORDERED: BENZOCAINE/MENTHOL 1 LOZENGE PO PRN (11:18)
[2019-06-05] MEDS ORDERED: METOPROLOL TARTRATE 5 MG/5 ML VIAL IV PRN (11:18)
[2019-06-05] MEDS ORDERED: ONDANSETRON 4 MG/2 ML VIAL IV PRN (11:18)
[2019-06-05] MEDS ORDERED: SENNOSIDES 1 TABLET PO PRN (11:18)
[2019-06-05] MEDS ORDERED: DEXTROSE 31 GM ORAL.SUSP PO PRN (11:18)
[2019-06-05] MEDS ORDERED: ACETAMINOPHEN 325 MG TABLET PO PRN (11:18)
[2019-06-05] MEDS ORDERED: IPRATROPIUM/ALBUTEROL 3 ML AMPUL.NEB NEB PRN (11:18)
[2019-06-05] MEDS ORDERED: DEXTROSE 50% 50 ML VIAL IV PRN (11:18)
[2019-06-05] MEDS ORDERED: POLYETHYLENE GLYCOL 3350 17 GM PACKET PO PRN (11:18)
[2019-06-05] MEDS ORDERED: PROMETHAZINE 25 MG/ML VIAL IV PRN (11:18)
[2019-06-05] MEDS ORDERED: HYDROmorphone 2 MG/ML VIAL IV PRN (11:18)
[2019-06-05] MEDS ORDERED: WARFARIN 5 MG TABLET PO ONE (14:00)
[2019-06-05] MEDS: FAMOTIDINE/PF 20 MG/2 ML VIAL IV SCH (20:38)
[2019-06-06 06:20] LABS: Calcium 7.9 mg/dl (8.6-10.4); Carbon Dioxide 26 mmol/L (22-30); Glomerular Filtration Rate 10; Glucose 139 mg/dL (70-105)
[2019-06-06 06:26] LABS: Blood Urea Nitrogen 50 mg/dl (8-23); Chloride 92 mmol/L (96-108)
[2019-06-06 07:02] LABS: INR 1.9 (0.9-1.1); Prothrombin Time 21.9 sec (11.9-14.5)
[2019-06-06] MEDS: LEVOTHYROXINE 75 MCG TABLET PO SCH (07:33)
[2019-06-06] MEDS: INSULIN LISPRO 1 UNIT/0.01 ML UNIT SQ SCH ×4 (07:33→22:42)
--- NOTE | 2019-06-06 08:48 | Internal Med Progress Note ---
Medical - PN: Subj Patient information: Note initiated : 06/06/19 at 8:47 am Service Date, if different from initiated Date: [] Patient: Shannon Alarcon 78 y/o F admitted on 06/02/19 for Left knee pain. Chief Complaint: [] Interval history: Ms. Alarcon is a 78 year old F With significant comorbidities who is returning home from a doctor's appointment and while walking through her front door tripped on the doorway falling on her left leg with instant pain. She did not pass out. She did hit the top of her head with a noted abrasion. She denies any chest pain shortness of breath coughing. Has some nausea but no vomiting. No headache. She is chronically incontinent of stool. Is on chronic oxygen 2 L daily. She was on hospice in the past and [place] for just of heart failure. Has a history of atrial fibrillation and is on digoxin, she was on carvedilol in the past but that was stopped due to low blood pressure. She does not recall being on any anticoagulation. She undergoes dialysis with Dr. Loco Thursday. She also gets paracentesis on a regular basis for ascites which is felt to be related to her end-stage renal disease. Laboratory work is pending. She was found to have a comminuted distal left femur fracture. Case was discussed with Dr. Restrepo. This is also discussed with Dr. Loco who will dialyze the patient in the morning and patient will likely be able to undergo surgery afterwards. Patient is extremely high risk for surgery and I discussed case with Dr. Restrepo. There is no reasonable alternative conservative treatment. She does function at home with her and uses a walker. She seems to understand her significant risk including perioperatively. And is willing to take the risk of surgery in order to be able to be ambulatory and functional afterwards. 06/03 Pain to the left knee. No overnight events. For surgery today as well as dialysis. Patient high risk for surgery as previously noted. This is unknown why she is not on anticoagulation. 06/04 Patient underwent surgery yesterday and tolerated procedure. Leg pain has improved since surgery. No overnight events or new complaints. 06/05 Doing well. No overnight events. No new complaints. Blood pressure continues to be low but patient is completely asymptomatic and feels normal. 06/06 No new complaints this morning. Patient stable. Appears to be doing well. Review of Systems: denies headache/fever/chills/nausea/vomiting/chest or abdominal pain/cough /dyspnea/diarrhea. Otherwise see above. - Constitutional Vitals: Vital Signs Temp Pulse Resp BP Pulse Ox 97.5 F 94 H 18 87/56 95 06/06/19 08:00 06/06/19 08:00 06/06/19 08:00 06/06/19 08:00 06/06/19 08:00 Period Temp Pulse Resp BP Sys/Fonseca Pulse Ox Last 24 Hr 97.5 F-98.8 F 54-102 12-18 82-91/48-58 92-97 Intake and Output 06/05/19 06/06/19 06/06/19 21:59 05:59 13:59 Intake Total 120 100 Balance 120 100 Weight 85.531 kg Intake & Output: Intake & Output 06/05/19 06/06/19 06/06/19 21:59 05:59 13:59 Intake Total 120 100 Balance 120 100 Weight 85.531 kg Intake: Oral 120 100 Other: Stool Size Smear Stool Color Brown # of times incontinent of 1 Bowels Exam: General: Alert, Awake, No acute Distress, obese Eyes/N/T: EOMI, Head/Neck: neck supple, CV: Regular at this time, 2/6 SM Pulm: subtle rales left base, no wheezing Abd: soft, nontender, +BS x4 Ext: no clubbing/cyanosis, 1-2+ b/l LE chronic Neuro: Alert, no focal deficits, moves all extremities, Skin: warm/dry Medical - PN: Obj Da - Labs CBC & Chem 7: 06/04/19 04:29 06/06/19 04:53 Labs: Abnormal Lab Results 06/06/19 06/06/19 06/05/19 04:53 04:53 04:46 RBC Hgb Hct RDW Gran % Lymph % (Auto) Lymph # (Auto) PT 21.9 H INR 1.9 H Chloride 92 L BUN 50 H 36 H Creatinine 4.1 H 3.7 H Glucose 139 H 68 L Calcium 7.9 L 8.3 L Direct Bilirubin GGT AST Alkaline Phosphatase Total Protein Albumin Albumin/Globulin Ratio 06/05/19 06/04/19 06/04/19 04:46 04:29 04:29 RBC Hgb Hct RDW Gran % Lymph % (Auto) Lymph # (Auto) PT 16.7 H 15.5 H INR 1.4 H 1.2 H Chloride BUN 25 H Creatinine 2.7 H Glucose 171 H Calcium 8.3 L Direct Bilirubin 0.6 H GGT 112 H AST 38 H Alkaline Phosphatase 187 H Total Protein 5.6 L Albumin 2.5 L Albumin/Globulin Ratio 0.8 L 06/04/19 04:29 RBC 3.11 L Hgb 9.9 L Hct 29.7 L RDW 14.9 H Gran % 82.0 H Lymph % (Auto) 10.7 L Lymph # (Auto) 1.0 L PT INR Chloride BUN Creatinine Glucose Calcium Direct Bilirubin GGT AST Alkaline Phosphatase Total Protein Albumin Albumin/Globulin Ratio Meds: Medications Acetaminophen (Tylenol) 650 mg PO Q6HP PRN PRN Reason: PAIN/FEVER > 101 Albuterol/Ipratropium (Duoneb) 3 ml NEB Q4HP PRN PRN Reason: Shortness Of Breath Dextrose (Dextrose 50%) 0 ml IV UD PRN PRN Reason: Hypoglycemia Diagnostic Test (Pha) (Accu-Chek) 1 each FS [facility] Last Admin: 06/06/19 07:33 Dose: 1 each Documented by: Digoxin (Lanoxin) 125 mcg PO MoWeFr@1400 [facility] Docusate Sodium (Colace) 100 mg PO BID [facility] Last Admin: 06/05/19 20:38 Dose: 100 mg Documented by: Famotidine (Pepcid) 20 mg IV [facility] Last Admin: 06/05/19 20:38 Dose: 20 mg Documented by: Glucose (Insta-Glucose) 15 gm PO PRN PRN PRN Reason: Hypoglycemia Hydromorphone HCl (Dilaudid) 0 mg IV Q2HP PRN PRN Reason: Pain Last Admin: 06/06/19 03:38 Dose: 0.25 mg Documented by: Insulin Glargine (Lantus) 5 unit SQ [facility] Insulin Human Lispro (Humalog) 0 unit SQ [facility]; Protocol Last Admin: 06/06/19 07:33 Dose: Not Given Documented by: Levothyroxine Sodium (Synthroid) 75 mcg PO QAI-[facility] Last Admin: 06/06/19 07:33 Dose: 75 mcg Documented by: Metoprolol Tartrate (Lopressor) 5 mg IV Q2HP PRN PRN Reason: Tachyarrhythmias HR>110 Midodrine (Midodrine Hcl) 10 mg PO TID [facility] Last Admin: 06/05/19 20:38 Dose: 10 mg Documented by: Ondansetron HCl (Zofran) 4 mg IV Q4HP PRN PRN Reason: Nausea And Vomiting Oxycodone/Acetaminophen (Percocet 5-325 Mg) 0 tab PO Q4HP PRN; Protocol PRN Reason: Per Pain Protocol Last Admin: 06/05/19 15:57 Dose: 1 tab Documented by: Polyethylene Glycol (Miralax) 17 gm PO DAILYP PRN PRN Reason: Constipation Promethazine HCl (Phenergan) 12.5 mg IV Q6HP PRN PRN Reason: Nausea And Vomiting Senna (Senokot) 2 tab PO DAILYP PRN PRN Reason: Constipation Sodium Chloride (Saline Flush) 10 ml IV Q8 [facility] Last Admin: 06/05/19 20:38 Dose: 10 ml Documented by: Throat Lozenges (Cepacol) 1 lozenge PO PRN PRN PRN Reason: Sore Throat Warfarin Sodium (Coumadin Per Pharmacy) 1 order PO [facility] Medical - PN: A/P - Time Spent With Patient Total time spent is greater than 50% in coordination of care (as documented) at patient's floor/unit and/or counseling patient: - Narrative A/P Narrative: *Left Distal femur Fx s/p GLF, no LOC: *ESRD (MWF): Follows with Dr. Loco -yaya at baseline *Recurrent Ascites: suspected to be related to CHF vs ESRD and gets regular paracentesis *Anemia, chronic: *h/o systolic CHF (EF 30% on 07/2016): on BB -echo in 2017 also showed LV moderately dilated, severe MR, mod-sev TR (repo rts says pt declined ICD/BiV pacer) -on 2L O2 @baseline *PAF: on digoxin *Chronic LBBB: *DM: on levemir *Hypothyroidism: *History of colovaginal fistula: Followed by surgery, deemed extremely high risk for surgery *Obesity: *Hypotension: pt sbp runs 80-90's per , she is on midodrine 5 tid, this was increased to 10tid P: -Patient extremely high risk perioperatively -Dr. Restrepo for orthopedic surgery -Dr. Loco following -home basal insulin and SSI -cont Dig, -pt/ot -awaiting placement -ppx: warfarin per pharm Medical - PN: Qual - VTE Deep Vein Thrombosis/Pulmonary Embolism Present on Admission: No
[2019-06-06] MEDS: DOCUSATE SODIUM 100 MG CAPSULE PO SCH ×2 (09:21→22:40)
[2019-06-06] MEDS: MIDODRINE 5 MG TABLET PO SCH ×3 (09:21→22:37)
[2019-06-06] MEDS: 0.9 % SODIUM CHLORIDE 10 ML SYRINGE IV SCH ×3 (09:22→22:42)
[2019-06-06] MEDS: INSULIN GLARGINE, HUMAN 1 UNIT/0.01 ML SQ SCH (09:22)
[2019-06-06] MEDS: oxyCODONE/APAP 5/325MG TABLET PO PRN ×2 (09:28→18:44)
[2019-06-06] MEDS ORDERED: WARFARIN 3 MG TABLET PO ONE (14:00)
[2019-06-06] MEDS ORDERED: DIGOXIN 125 MCG TABLET PO SCH (14:00)
[2019-06-06] MEDS: FAMOTIDINE/PF 20 MG/2 ML VIAL IV SCH (22:40)
[2019-06-07] MEDS: oxyCODONE/APAP 5/325MG TABLET PO PRN (04:58)
[2019-06-07] MEDS: 0.9 % SODIUM CHLORIDE 10 ML SYRINGE IV SCH (05:00)
[2019-06-07 06:38] LABS: INR 2.3 (0.9-1.1); Prothrombin Time 24.7 sec (11.9-14.5)
[2019-06-07] MEDS: LEVOTHYROXINE 75 MCG TABLET PO SCH (07:12)
[2019-06-07] MEDS: INSULIN LISPRO 1 UNIT/0.01 ML UNIT SQ SCH ×2 (07:21→12:00)
--- NOTE | 2019-06-07 08:14 | XRay Report ---
CLINICAL INFORMATION: sudden onset SOB COMPARISON: 06/02/2018 FINDINGS: Moderate cardiomegaly is unchanged. Mediastinum and pulmonary vessels are normal. Small vague infiltrate has developed in the right infrahilar region. Mild patchy infiltrate in the left base has improved. Small left pleural effusion, seen on previous study, has resolved IMPRESSION: New small vague infiltrate right base Moderate improvement in left basilar infiltrate with only minimal residual. Interval resolution small left pleural effusion Moderate, yet stable, cardiomegaly Interpreted and Authenticated by: Randall Esteban 06/07/19
[2019-06-07 08:32] LABS: Hematocrit 33.7 % (36.0-48.0); Mean Cell Volume 96.9 fL (80.0-100.0); Mean Corpuscular HGB Conc 32.7 g/dL (31.0-36.0); Mean Platelet Volume 7.3 fL (7.4-10.4); Platelet Count 369 K/mcL (140-440); RBC 3.47 M/mcL (4.00-5.20); Red Cell Distribution Width 15.2 % (11.5-14.5); WBC 11.1 K/mcL (4.5-11.0)
[2019-06-07 08:48] LABS: ALT/SGPT < 5 U/l (0-40); AST/SGOT 26 U/l (0-37); Albumin/Globulin Ratio 0.9 (1.0-2.3); Alkaline Phosphatase 224 U/L (39-117); Bilirubin,Direct 0.6 mg/dL (0.0-0.3); Bilirubin,Total 1.1 mg/dL (0.0-1.0); Blood Urea Nitrogen 30 mg/dl (8-23); Calcium 7.6 mg/dl (8.6-10.4); Carbon Dioxide 28 mmol/L (22-30); Chloride 93 mmol/L (96-108); Globulin 3.5 gm/dL (2.2-3.7); Glomerular Filtration Rate 14; Glucose 152 mg/dL (70-105); Lactate Dehydrogenase 204 U/L (94-250); Phosphorous 2.5 mg/dL (2.7-4.5); Triglycerides 147 mg/dl (<150); Uric Acid 3.4 mg/dL (2.5-8.0)
[2019-06-07 08:53] LABS: Anisocytosis FEW (NONE SEEN); Eosinophils % (Manual) 2 % (0-7); Lymphocytes % 27 % (15-49); Monocytes % (Manual) 3 % (1-12); Myelocytes % 1 % (0-0); Platelet Estimate NORMAL (NORMAL); RBC Morphology ABNORM (NORMAL); Segmented Neutrophils % 67 % (38-78)
[2019-06-07] MEDS: INSULIN GLARGINE, HUMAN 1 UNIT/0.01 ML SQ SCH (08:58)
[2019-06-07] MEDS: MIDODRINE 5 MG TABLET PO SCH ×2 (08:58→13:28)
[2019-06-07] MEDS: DOCUSATE SODIUM 100 MG CAPSULE PO SCH (08:59)
[2019-06-07] MEDS ORDERED: LORazepam 0.5 MG TABLET PO PRN (09:16)
--- NOTE | 2019-06-07 12:57 | Discharge Summary ---
Medical - DS: Prov Patient information: Note initiated : 06/07/19 at 12:54 pm Service Date, if different from initiated Date: [] Patient: Shannon Alarcon 78 y/o F admitted on 06/02/19 for Left knee pain. Chief Complaint: [] Date of admission: 06/02/19 20:48 Discharge date: 06/07/19 Primary care physician: Chaparro Mendez Consults: 06/02/19 Consult to Physician [CONS] Stat Comment: Consulting Provider: Tristian Restrepo Reason For Exam: Physician to Consult Consult to Physician [CONS] Stat Comment: Consulting Provider: Silas Jose Reason For Exam: Physician to Consult 06/02/19 21:28 Consult to Physician [CONS] Routine Comment: Consulting Provider: Cristian Loco Reason For Exam: Physician to Consult Medical - DS: Meds - Discharge Medications Prescriptions: Levofloxacin [Levaquin] 500 mg PO Q48 #3 tab Transmission Status: Pending to [facility] #05448 oxyCODONE/APAP [Percocet 5-325 mg] 1 tab PO Q6HP PRN #20 tab PRN Reason: Per Pain Protocol Prescription Printed Warfarin Sodium 3 mg PO DAILY #30 tab Transmission Status: Pending to [facility] #[id number] Active and Home Medications: Home Medications Insulin Glargine, Human 5 units SQ QAM #1 01/18/19 [Rx Confirmed 06/02/19 Last Taken 06/01/19 02:00] Levothyroxine [Synthroid] 1 tab PO DAILY 01/18/19 [History Confirmed 06/02/19 Last Taken 06/02/19 06:00] cholecalciferol (vitamin D3) 10,000 unit capsule 10,000 unit PO .Q3Days/Week cap 05/25/19 [History Confirmed 06/02/19 Last Taken 06/01/19 02:00] digoxin 125 mcg (0.125 mg) tablet 125 mcg PO .Q3 Days/Week tab 05/25/19 [History Confirmed 06/02/19 Last Taken 06/01/19 02:00] docusate sodium 100 mg capsule 100 mg PO BID 05/25/19 [History Confirmed 06/02/19 Last Taken 06/02/19 02:00] Midodrine [Midodrine HCl] 5 mg PO TID 06/02/19 [History Confirmed 06/02/19 Last Taken 06/02/19 02:00] Nephro-Serenity Tablet 1 tab PO QAM 06/02/19 [History Confirmed 06/06/19 Last Taken 06/02/19 02:00] oxyCODONE/APAP [Percocet 5-325 mg] 1 tab PO Q6HP PRN #20 tab 06/05/19 [Rx Last Taken Unknown] Levofloxacin [Levaquin] 500 mg PO Q48 #3 tab 06/07/19 [Rx Last Taken Unknown] Warfarin Sodium 3 mg PO DAILY #30 tab 06/07/19 [Rx Last Taken Unknown] Medical - DS: Hosp Hospital Course: Discharge diagnosis -Right-sided community acquired pneumonia continue Levaquin for additional 5 days. *Left Distal femur Fx s/p GLF, -doing well postop. Transferring to SNF for continued post auscultation rehab *ESRD (MWF): Follows with Dr. Loco. Continue hemodialysis as scheduled with outpatient follow-up with nephrology. *Recurrent Ascites: suspected to be related to CHF vs ESRD and gets regular paracentesis *Anemia, chronic: Stable hemoglobin at 11 *h/o systolic CHF (EF 30% on 07/2016): on BB -echo in 2017 also showed LV moderately dilated, severe MR, mod-sev TR (reports says pt declined ICD/BiV pacer) -on 2L O2 @baseline *PAF: on digoxin, anticoagulation on Coumadin. INR therapeutic at 2.3. *DM: on levemir *Hypothyroidism: Continue thyroxine *History of colovaginal fistula: Followed by surgery, deemed extremely high risk for surgery *Obesity: Weight loss intervention/nutrition support *Hypotension: pt sbp runs 80-90's per , she is on midodrine 5 tid, this was increased to 10tid Brief hospital course Ms. Alarcon is a 78 year old F With significant comorbidities who is returning home from a doctor's appointment and while walking through her front door tripped on the doorway falling on her left leg with instant pain. She did not pass out. She did hit the top of her head with a noted abrasion. She denies any chest pain shortness of breath coughing. Has some nausea but no vomiting. No headache. She is chronically incontinent of stool. Is on chronic oxygen 2 L daily. She was on hospice in the past and [place] for just of heart failure. Has a history of atrial fibrillation and is on digoxin, she was on carvedilol in the past but that was stopped due to low blood pressure. She does not recall being on any anticoagulation. She undergoes dialysis with Dr. Loco Thursday. She also gets paracentesis on a regular basis for ascites which is felt to be related to her end-stage renal disease. Laboratory work is pending. She was found to have a comminuted distal left femur fracture. Case was discussed with Dr. Restrepo. This is also discussed with Dr. Loco who will dialyze the patient in the morning and patient will likely be able to undergo surgery afterwards. Patient is extremely high risk for surgery and I discussed case with Dr. Restrepo. There is no reasonable alternative conservative treatment. She does function at home with her and uses a walker. She seems to understand her significant risk including perioperatively. And is willing to take the risk of surgery in order to be able to be ambulatory and functional afterwards. 06/03 Pain to the left knee. No overnight events. For surgery today as well as dialysis. Patient high risk for surgery as previously noted. This is unknown why she is not on anticoagulation. 06/04 Patient underwent surgery yesterday and tolerated procedure. Leg pain has improved since surgery. No overnight events or new complaints. 06/05 Doing well. No overnight events. No new complaints. Blood pressure continues to be low but patient is completely asymptomatic and feels normal. 06/06 No new complaints this morning. Patient stable. Appears to be doing well. Stable for discharge. 06/07-patient discharging to SNF. Continue Levaquin for additional 3 doses every 48 hours. Continue aggressive PT OT SNF. Follow-up primary care physician. INR daily/Coumadin dose titration by SNF physician. Discharge instructions as below Discharge diagnosis: . - Time Spent with Patient Total time spent providing and/or coordinating discharge services: Medical - DS: Exam - Constitutional Vitals: Vital Signs Temp Pulse Pulse Pulse Pulse Resp BP 06/07/19 12:34 97.1 F 94 H 18 06/07/19 09:53 88 96 H 06/07/19 09:19 96 H 06/07/19 09:18 97.4 F 88 06/07/19 08:01 77 16 06/07/19 07:10 98.1 F 89 18 06/07/19 03:47 98.0 F 98 H 18 06/06/19 22:44 97.4 F 94 H 20 06/06/19 18:57 97.7 F 97 H 20 06/06/19 16:00 97.4 F 93 H 18 06/06/19 15:19 96.0 F L 71 89/48 06/06/19 15:00 60 82/43 06/06/19 14:45 80 86/42 06/06/19 14:30 74 85/44 06/06/19 14:15 82 90/44 06/06/19 14:00 68 89/40 06/06/19 13:44 79 89/44 06/06/19 13:30 72 87/55 06/06/19 13:15 73 81/48 06/06/19 13:00 72 90/46 BP BP BP Pulse Ox 06/07/19 12:34 99/54 98 06/07/19 09:53 87/49 88/49 06/07/19 09:19 88/49 95 06/07/19 09:18 87/49 97 06/07/19 08:01 06/07/19 07:10 87/56 93 06/07/19 03:47 90/51 96 06/06/19 22:44 87/54 95 06/06/19 18:57 85/49 96 06/06/19 16:00 99/50 92 06/06/19 15:19 06/06/19 15:00 06/06/19 14:45 06/06/19 14:30 06/06/19 14:15 06/06/19 14:00 06/06/19 13:44 06/06/19 13:30 06/06/19 13:15 06/06/19 13:00 Intake and Output 06/06/19 06/07/19 06/07/19 21:59 05:59 13:59 Intake Total 420 150 240 Balance 420 150 240 Intake: Oral 420 150 240 Other: Meal Dinner Murphy Crackers, cream cheese Breakfast Percent of Meal Consumed 75% 100% 75% Feeding Ability Independent Independent Independent Stool Size Small Stool Color Brown Stool Consistency Formed Weight 187 lb 12.8 oz 187 lb 12.8 oz Patient Weight 11/27/19 05:59 Weight 187 lb 12.8 oz Medical - DS: Data Labs on day of discharge: Labs from last 24 hours 06/07/19 06/07/19 06/07/19 07:52 07:52 04:30 WBC 11.1 H RBC 3.47 L Hgb 11.0 L Hct 33.7 L MCV 96.9 MCH 31.7 MCHC 32.7 RDW 15.2 H Plt Count 369 MPV 7.3 L Total Counted 100 Seg Neutrophils % 67 Band Neutrophils % Not Reportable Lymphocytes % 27 Monocytes % (Manual) 3 Eosinophils % (Manual) 2 Myelocytes % 1 H Platelet Estimate Normal RBC Morphology Abnorm A Anisocytosis Few A PT 24.7 H INR 2.3 H Sodium 133 Potassium 4.4 Chloride 93 L Carbon Dioxide 28 Anion Gap 12.0 BUN 30 H Creatinine 3.1 H GFR Calculation 14 Glucose 152 H Uric Acid 3.4 Calcium 7.6 L Phosphorus 2.5 L Magnesium 1.8 Total Bilirubin 1.1 H Direct Bilirubin 0.6 H GGT 137 H AST 26 ALT < 5 Alkaline Phosphatase 224 H Lactate Dehydrogenase 204 Total Protein 6.5 Albumin 3.0 L Globulin 3.5 Albumin/Globulin Ratio 0.9 L Triglycerides 147 Medical - DS: A/P - Patient/Caregiver Discharge Instructions Activity: as per physical therapy, increase activity as tolerated Diet: Renal/Consistent Carbs Additional Instructions: Activity: as per physical therapy Diet: Renal/Consistent Carbs Antibiotics for additional 3 doses Coumadin dosing based on INR PT OT ST eval Fall precaution Hemodialysis as per life skills coordinator Postoperative care per orthopedics recommendation Prescriptions: Levofloxacin [Levaquin] 500 mg PO Q48 #3 tab Transmission Status: Pending to [facility] #[id number] oxyCODONE/APAP [Percocet 5-325 mg] 1 tab PO Q6HP PRN #20 tab PRN Reason: Per Pain Protocol Prescription Printed Warfarin Sodium 3 mg PO DAILY #30 tab Transmission Status: Pending to [facility] #[id number] - Follow up Plan Follow up with: Tristian Restrepo MD [Physician] - Chaparro Mendez ARNP [Primary Care Provider] - Cristian Loco MD [Physician] - Disposition: Xfer SNF Prognosis: Fair Rehab Potential: Fair I certify that the patient requires SNF services: Yes Overall status at discharge: patient is progressing back to baseline Medical - DS: Qual - VTE Deep Vein Thrombosis/Pulmonary Embolism Present on Admission: No
[2019-06-07] MEDS ORDERED: WARFARIN 3 MG TABLET PO ONE (14:00)
== END 2019-06-07 14:30 | DRG 480 ==
LOC: ED 16:54 → ICU 20:48 → MEDSUR 06-05 16:23
PROVIDERS: ADMIT Internal Medicine; ATTEND Internal Medicine

== ENCOUNTER 2019-09-04 16:53 | Inpatient (IN) ==
[2019-09-04] MEDS ORDERED: FUROSEMIDE 40 MG/4 ML VIAL IV ONE (17:21)
[2019-09-04] MEDS: NITROGLYCERIN 0.4 MG TAB.SUBL SL PRN ×2 (17:22→17:35)
--- NOTE | 2019-09-04 17:28 | XRay Report ---
CLINICAL INFORMATION:Chest pain TECHNIQUE: AP portable semiupright chest x-ray COMPARISON: Previous chest x-rays dated 06/07/2019, 06/02/2019, 04/16/2019 FINDINGS:There is cardiomegaly, unchanged. Pulmonary vascularity is prominent consistent with pulmonary congestion. Mild bibasilar pulmonary parenchymal density most consistent with atelectasis. Pneumonia is possible. Follow-up PA and lateral chest x-ray is recommended when clinically appropriate. There is a focal left basilar nodular density which is unchanged. This is stable since previous chest x-rays. This is also demonstrated on abdominal CT scan dated 08/07/2019. IMPRESSION: 1. Cardiomegaly and probable pulmonary congestion 2. Mild bibasilar atelectasis or infiltrate. Follow-up recommended 3. Nonspecific left basilar nodule is unchanged. Continued follow-up chest x-rays or CT scan recommended. Interpreted and Authenticated by: Randall Reeves 09/04/19
[2019-09-04] MEDS ORDERED: fentaNYL 100 MCG/2 ML VIAL IV ONE (17:35)
[2019-09-04 18:25] LABS: Basophils # (Auto) 0.09 K/mcL (0.00-0.30); Basophils % (Auto) 0.6 % (0.0-2.0); Eosinophils # (Auto) 0.08 K/mcL (0.00-0.70); Eosinophils % (Auto) 0.6 % (0.0-7.0); Granulocytes % (Auto) 84.6 % (38.0-78.0); Hemoglobin 13.2 g/dL (11.2-15.7); Lymphocytes # (Auto) 1.35 K/mcL (1.50-4.80); Lymphocytes % (Auto) 9.7 % (15.5-49.0); Mean Cell Volume 93.9 fL (80.0-100.0); Mean Platelet Volume 9.1 fL (7.4-10.4); Monocytes # (Auto) 0.62 K/mcL (0.10-0.90); Monocytes % (Auto) 4.5 % (1.0-12.0); Platelet Count 376 K/mcL (140-440); RBC 4.26 M/mcL (3.59-5.38); Red Cell Distribution Width 14.6 % (11.5-14.5); WBC 13.9 K/mcL (4.50-11.00)
[2019-09-04 18:42] LABS: Creatine Kinase MB 2.9 ng/ml (0-2.9); Myoglobin 119 ng/ml (25-58)
[2019-09-04 18:44] LABS: ALT/SGPT 14 U/l (0-40); AST/SGOT 28 U/l (0-37); Albumin 3.3 gm/dL (3.2-5.2); Albumin/Globulin Ratio 0.8 (1.0-2.3); Alkaline Phosphatase 254 U/L (39-117); Bilirubin,Total 1.1 mg/dL (0.0-1.0); Blood Urea Nitrogen 44 mg/dl (8-23); Calcium 9.2 mg/dl (8.6-10.4); Carbon Dioxide 22 mmol/L (22-30); Creatine Kinase 36 IU/L (24-170); Glomerular Filtration Rate 8; Glucose 172 mg/dL (70-105)
[2019-09-04 18:45] LABS: Chloride 82 mmol/L (96-108)
[2019-09-04] MEDS ORDERED: LEVOFLOXACIN 500 MG/100 ML BAG IV ONE (18:51)
--- NOTE | 2019-09-04 19:16 | Emergency Department Note ---
Chest Pain HPI - General Chief Complaint: Chest Pain Stated Complaint: chest pain Time Seen by Provider: 09/04/19 16:59 Source: patient Mode of arrival: wheelchair Limitations: no limitations - History of Present Illness HPI Narrative: 79-year-old female presents with chest pain and shortness of breath. Onset about 1:00 today. States she is had this intermittently for the last few days but much worse about 1:00 today. States couple days ago she had a paracentesis done at [facility] because we did not have any room to get her in. She was feeling better until about 1:00 today. Pain is right in the center of her chest and radiates through to her back at times. She has had a cough. Unknown if it is productive. Positive chills but unknown fever. No nausea, vomiting, or diarrhea. States her legs are definitely more swollen than normal. States she has been taking her medications as prescribed and has not missed any doses. She states she resides at [facility]. She is a Dr. Loco patient was last dialyzed on Thursday. Patient states she is a DNR with limited interventions in which she will do IV fluids and IV antibiotics and continue dialysis but does not want to be resuscitated. She also arrives with this pulsed form indicating the same thing. - Related Data Home Medications Medication Instructions Recorded Confirmed cholecalciferol (vitamin D3) 250 10,000 unit PO .Q3Days/Week cap 05/25/19 0 09/04/19 mcg (10,000 unit) capsule digoxin 125 mcg (0.125 mg) tablet 125 mcg PO .Q3 Days/Week tab 05/25/19 09/04/19 docusate sodium 100 mg capsule 100 mg PO DAILY 05/25/19 09/04/19 Midodrine [Midodrine HCl] 5 mg PO TID 06/02/19 09/04/19 Acetaminophen [Non-Aspirin] 325 mg PO DAILY PRN 09/04/19 09/04/19 Bisacodyl [Dulcolax] 10 mg PO DAILY PRN 09/04/19 09/04/19 Bisacodyl [Dulcolax] 10 mg ID DAILY PRN 09/04/19 09/04/19 Folic Acid/Vit B Complex and C 1 dose PO DAILY 09/04/19 09/04/19 [Bebe-Serenity Tablet] Glucagon,Human Recombinant 1 mg IM PRN PRN 09/04/19 09/04/19 [Glucagon Emergency Kit] Insulin Glargine,Hum.rec.anlog 5 unit SQ DAILY 09/04/19 09/04/19 [Lantus Solostar] Lactulose 20 gm PO BIDP PRN 09/04/19 09/04/19 Levothyroxine Sodium [Synthroid] 75 mcg PO DAILY 09/04/19 09/04/19 Na Phos,M-B/Na Phos,Di-Ba [Fleets 1 dose ID DAILYP PRN 09/04/19 09/04/19 Adult] Phenyleph/Mineral Oil/Petrolat 1 dose TOPICAL PRN PRN 09/04/19 09/04/19 [Preparation H Ointment] Polyethylene Glycol 3350 17 gm PO QDP PRN 09/04/19 09/04/19 [Smoothlax] fentaNYL [Fentanyl] 1 each TD Q72H 09/04/19 09/04/19 Previous Rx's Medication Instructions Recorded Aspirin [Adult Low Dose Aspirin EC] 81 mg PO DAILY #30 tablet. 06/07/19 Allergies Allergy/AdvReac Type Severity Reaction Status Date / Time Penicillins Allergy Unknown Unknown Verified 09/04/19 16:57 morphine AdvReac Intermediate Inside of Verified 09/04/19 16:57 her body gets hot quinapril [From Accupril] AdvReac Intermediate Cough Verified 09/04/19 16:57 codeine AdvReac Mild constipatio Verified 09/04/19 16:57 n Review of Systems All systems ED: reviewed and negative except as stated. 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) Hypothyroidism (Chronic) Anemia of chronic disease (Chronic) Constipation (Chronic) Epistaxis (Chronic) SOB (shortness of breath) (Chronic) Bloody vaginal discharge (Chronic) Colovaginal fistula (Chronic) Left leg pain (Chronic) Elevated d-dimer (Chronic) Bronchitis (Chronic) Acute gastroenteritis (Chronic) Ascites (Chronic) Right forearm pain (Chronic) Hypotension (Chronic) Past Surgical History (Last Reviewed 05/31/19 @ 08:18 by NIMCO Vasquez) History of bladder suspension procedure (Chronic) History of cholecystectomy (Chronic ~1988) History of hysterectomy (Chronic) Medical history: Reports: arthritis, atrial fibrillation, CHF, DM, hyperlipidemia, hypertension, hypothyroidism, liver disease, obesity, osteoporosis, renal disease, valvular heart disease, other (Colonic vaginal fistula, left bundle branch block) - Social History smoking status: Former smoker Alcohol use: Reports: None Drug use: Reports: none Physical Exam Limitations: no limitations Course Course Narrative: At 1930 I did speak with Dr. Loco who agrees to consult on this patient. He would like hospitalist to admit. @[address] Jose agrees to accept this patient Vital Signs Temperature 98.8 F 09/04/19 16:53 Pulse Rate 107 H 09/04/19 16:53 Respiratory Rate 16 09/04/19 16:53 Blood Pressure 134/88 09/04/19 16:53 Pulse Oximetry (%) 100 09/04/19 16:53 Temperature 98.8 F 09/04/19 16:53 Pulse Rate 94 H 09/04/19 21:01 Respiratory Rate 23 H 09/04/19 21:01 Blood Pressure 97/69 09/04/19 21:01 Pulse Oximetry (%) 92 09/04/19 21:01 Chest Pain - Lab Data Result diagrams: 09/04/19 17:35 09/04/19 17:35 Lab Results 09/04/19 09/04/19 09/04/19 Range/Units 17:35 17:35 17:35 WBC 13.9 H (4.50-11.00) K/mcL RBC 4.26 (3.59-5.38) M/mcL Hgb 13.2 (11.2-15.7) g/dL Hct 40.0 (34.1-44.9) % MCV 93.9 (80.0-100.0) fL MCH 31.0 (26.0-34.0) pg MCHC 33.0 (31.0-36.0) g/dL RDW 14.6 H (11.5-14.5) % Plt Count 376 (140-440) K/mcL MPV 9.1 (7.4-10.4) fL Gran % 84.6 H (38.0-78.0) % Lymph % (Auto) 9.7 L (15.5-49.0) % [place] % (Auto) 4.5 (1.0-12.0) % Eos % (Auto) 0.6 (0.0-7.0) % Baso % (Auto) 0.6 (0.0-2.0) % Gran # 11.79 H (1.80-8.00) K/mcL Lymph # (Auto) 1.35 L (1.50-4.80) K/mcL Ren[place] # (Auto) 0.62 (0.10-0.90) K/mcL Eos # (Auto) 0.08 (0.00-0.70) K/mcL Baso # (Auto) 0.09 (0.00-0.30) K/mcL VBG Lactic Acid (0.5-2.0) mmol/L Sodium 120 L (133-145) mmol/L Potassium 5.5 H (3.3-5.1) mmol/L Chloride 82 L (96-108) mmol/L Carbon Dioxide 22 (22-30) mmol/L Anion Gap 16.0 (8-16) BUN 44 H (8-23) mg/dl Creatinine 4.9 H (0.6-1.1) mg/dl GFR Calculation 8 Glucose 172 H (70-105) mg/dL Calcium 9.2 (8.6-10.4) mg/dl Total Bilirubin 1.1 H (0.0-1.0) mg/dL AST 28 (0-37) U/l ALT 14 (0-40) U/l Alkaline Phosphatase 254 H (39-117) U/L Total Creatine Kinase 36 (24-170) IU/L CK-MB (CK-2) 2.9 (0-2.9) ng/ml Myoglobin 119 H (25-58) ng/ml Troponin T 0.15 H* (0-0.03) ng/ml NT-Pro-B Natriuret Pep (0-450) pg/ml Total Protein 7.3 (5.9-8.4) gm/dL Albumin 3.3 (3.2-5.2) gm/dL Globulin 4.0 H (2.2-3.7) gm/dL Albumin/Globulin Ratio 0.8 L (1.0-2.3) 09/04/19 09/04/19 Range/Units 17:35 19:50 WBC (4.50-11.00) K/mcL RBC (3.59-5.38) M/mcL Hgb (11.2-15.7) g/dL Hct (34.1-44.9) % MCV (80.0-100.0) fL MCH (26.0-34.0) pg MCHC (31.0-36.0) g/dL RDW (11.5-14.5) % Plt Count (140-440) K/mcL MPV (7.4-10.4) fL Gran % (38.0-78.0) % Lymph % (Auto) (15.5-49.0) % Ren[place] % (Auto) (1.0-12.0) % Eos % (Auto) (0.0-7.0) % Baso % (Auto) (0.0-2.0) % Gran # (1.80-8.00) K/mcL Lymph # (Auto) (1.50-4.80) K/mcL [place] # (Auto) (0.10-0.90) K/mcL Eos # (Auto) (0.00-0.70) K/mcL Baso # (Auto) (0.00-0.30) K/mcL VBG Lactic Acid 2.5 H (0.5-2.0) mmol/L Sodium (133-145) mmol/L Potassium (3.3-5.1) mmol/L Chloride (96-108) mmol/L Carbon Dioxide (22-30) mmol/L Anion Gap (8-16) BUN (8-23) mg/dl Creatinine (0.6-1.1) mg/dl GFR Calculation Glucose (70-105) mg/dL Calcium (8.6-10.4) mg/dl Total Bilirubin (0.0-1.0) mg/dL AST (0-37) U/l ALT (0-40) U/l Alkaline Phosphatase (39-117) U/L Total Creatine Kinase (24-170) IU/L CK-MB (CK-2) (0-2.9) ng/ml Myoglobin (25-58) ng/ml Troponin T (0-0.03) ng/ml NT-Pro-B Natriuret Pep 20470.0 H (0-450) pg/ml Total Protein (5.9-8.4) gm/dL Albumin (3.2-5.2) gm/dL Globulin (2.2-3.7) gm/dL Albumin/Globulin Ratio (1.0-2.3) Disposition Pt seen by ENTERTAINMENT PRODUCTION PROFESSIONAL/PA only: Yes Clinical Impression: Chest pain, Pneumonia, CHF (congestive heart failure), Chronic renal failure Disposition: Xfer As Inpt ([facility]) Condition: Serious Referrals: Chaparro Mendez, NIMCO [Primary Care Provider] -
--- NOTE | 2019-09-04 21:29 | Internal Med History&Physical ---
Medical - H&P: HPI Patient information: Note initiated : 09/04/19 at 9:21 pm Service Date, if different from initiated Date: [] Patient: Shannon Alarcon a 79 y/o F admitted on for chest pain. Chief Complaint: [] History of present illness: Ms. Alarcon is a 79 year old F End-stage renal disease patient and her heart failure patient who presents to the ED with chest pain. She states the pain started about 1:00 today and has been constant. She says it feeling of big ball on her chest essentially not really radiating but does complain of worsening pain in her shoulders which she has chronic pain as well as worsening pain in her back. The pain is been constant since then nothing has made it better. Things that make it worse are taking a deep breath. In the ED her troponin was elevated although it is chronically elevated, last time he was 0.12 it is 0.15 this time. EKG looks the same as her prior EKGs. The pain started while she was sitting in her wheelchair. She has had increased shortness of breath since then because of the pain. On examining her it is pain is reproducible on palpation. Patient states that she would not want to be transferred even if it was cardiac or for any other reason.. She does not want any procedures and if this was her heart and she was deteriorating she would want to be made comfortable. She did go to [facility] last week for a paracentesis after her dialysis. She did have shortness of breath at that time and the paracentesis did improve shortness of breath. In the ED she was a found a pulmonary congestion she did have a mild leukocytosis but denies fevers. She has a chronic cough but she feels there is no change in her cough. She has chronic edema in her legs and may be a little worse than usual. She has some nausea. She does not urinate at all. She is on dialysis Thursday. Her sodium was found to be low at 120 she had a mild elevated potassium level. Lactate mildly elevated Chest x-ray pulmonary congestion could not rule out underlying infiltrate. Case was discussed with administrative resources associate who felt that we could do dialysis first thing in the morning. She has a DNR CODE STATUS and I discussed with her her case. Multiple recent hospitalizations her current state and her previously mentioned directives. Patient does not want any heroic measures or procedures. He is okay with antibiotics and IV fluids if needed. She again states she does not want to be transferred anywhere. If she declines she wants to be made comfort care only. Review of Systems: Pertinent positives as above. Denies headache/fever/chills/vomiting/abdominal pain/diarrhea. Otherwise see above. Medical - H&P: PMH Medical history: Past medical history: Diabetes End-stage renal disease on dialysis Thursday follows Dr. Loco ascites felt to be related to ESRD vs fistula Chronic anemia Systolic heart failure with ejection fraction 25 to 30% on echo September 2015 on home oxygen 2 L Atrial fibrillation Hypothyroidism Colovaginal fistula for which she is been followed by surgery and has had multiple discussions given her severe they high risk for surgery Past surgical history: Total abdominal hysterectomy with bilateral salpingo-oophorectomy Cholecystectomy Family history: Mother lung cancer Social history: Patient quit smoking over 40 years ago Has been on hospice in the past and [place] for end-stage heart failure Has resided at halfway facilities. Resides at home with her Ambulates with a walker Drinks alcohol rarely Medical - H&P: Meds Home Medications Medication Instructions Recorded Confirmed Type cholecalciferol (vitamin D3) 250 10,000 unit PO .Q3Days/Week cap 05/25/19 09/04/19 History mcg (10,000 unit) capsule digoxin 125 mcg (0.125 mg) tablet 125 mcg PO .Q3 Days/Week tab 05/25/19 09/04/19 History docusate sodium 100 mg capsule 100 mg PO DAILY 05/25/19 09/04/19 History Midodrine [Midodrine HCl] 5 mg PO TID 06/02/19 09/04/19 History Aspirin [Adult Low Dose Aspirin EC] 81 mg PO DAILY #30 tablet. 06/07/19 09/04/19 Rx Acetaminophen [Non-Aspirin] 325 mg PO DAILY PRN 09/04/19 09/04/19 History Bisacodyl [Dulcolax] 10 mg PO DAILY PRN 09/04/19 09/04/19 History Bisacodyl [Dulcolax] 10 mg WI DAILY PRN 09/04/19 09/04/19 History Folic Acid/Vit B Complex and C 1 dose PO DAILY 09/04/19 09/04/19 History [Bebe-Serenity Tablet] Glucagon,Human Recombinant 1 mg IM PRN PRN 09/04/19 09/04/19 History [Glucagon Emergency Kit] Insulin Glargine,Hum.rec.anlog 5 unit SQ DAILY 09/04/19 09/04/19 History [Lantus Solostar] Lactulose 20 gm PO BIDP PRN 09/04/19 09/04/19 History Levothyroxine Sodium [Synthroid] 75 mcg PO DAILY 09/04/19 09/04/19 History Na Phos,M-B/Na Phos,Di-Ba [Fleets 1 dose WI DAILYP PRN 09/04/19 09/04/19 History Adult] Phenyleph/Mineral Oil/Petrolat 1 dose TOPICAL PRN PRN 09/04/19 09/04/19 History [Preparation H Ointment] Polyethylene Glycol 3350 17 gm PO QDP PRN 09/04/19 09/04/19 History [Smoothlax] fentaNYL [Fentanyl] 1 each TD Q72H 09/04/19 09/04/19 History Allergies Allergy/AdvReac Type Severity Reaction Status Date / Time Penicillins Allergy Unknown Unknown Verified 09/04/19 16:57 morphine AdvReac Intermediate Inside of Verified 09/04/19 16:57 her body gets hot quinapril [From Accupril] AdvReac Intermediate Cough Verified 09/04/19 16:57 codeine AdvReac Mild constipatio Verified 09/04/19 16:57 n Medical - H&P: Exam - Constitutional Vitals: Temp Pulse Resp BP Pulse Ox 98.8 F 94 H 23 H 97/69 92 09/04/19 16:53 09/04/19 21:01 09/04/19 21:01 09/04/19 21:01 09/04/19 21:01 Exam: General: Alert, Awake, No acute Distress, obese Eyes/N/T: EOMI, PEERL, Head/Neck: neck supple, normocephalic atraumatic CV: Tachycardia but regular, No murmurs, normal s1/s2. reProducible chest pain with palpation Pulm: mild rales b/l worse on left, no wheezing Abd: soft, nontender, +BS x4 Ext: no clubbing/cyanosis, 3+ b/l LE, venous stasis changes bilaterally with dermatitis on the left Neuro: Alert, no focal deficits, moves all extremities weakly, CN 2-12 grossly intact, symmetrical strength b/l upper/lower, sensations intact b/l upper/lower Skin: warm/dry Medical - H&P: Reslt - Labs CBC & Chem 7: 09/04/19 17:35 09/04/19 17:35 Labs: Short CBC 09/04/19 Range/Units 17:35 WBC 13.9 H (4.50-11.00) K/mcL Hgb 13.2 (11.2-15.7) g/dL Hct 40.0 (34.1-44.9) % Plt Count 376 (140-440) K/mcL BMP 09/04/19 17:35 Sodium 120 L Potassium 5.5 H Chloride 82 L Carbon Dioxide 22 BUN 44 H Creatinine 4.9 H Glucose 172 H Calcium 9.2 Cardiac Enzymes 09/04/19 09/04/19 Range/Units 17:35 17:35 Total Creatine Kinase 36 (24-170) IU/L CK-MB (CK-2) 2.9 (0-2.9) ng/ml Troponin T 0.15 H* (0-0.03) ng/ml Liver Function 09/04/19 Range/Units 17:35 Total Bilirubin 1.1 H (0.0-1.0) mg/dL AST 28 (0-37) U/l ALT 14 (0-40) U/l Alkaline Phosphatase 254 H (39-117) U/L Albumin 3.3 (3.2-5.2) gm/dL Medical - H&P: A/P - Narrative A/P Narrative: A: *Acute on chronic systolic CHF (EF 30% on 07/2016): -echo in 2017 also showed LV moderately dilated, severe MR, mod-sev TR (reports says pt declined ICD/BiV pacer) -occasionally wears O2 at home *Anasarca: *Chest pain: appears MSK as is reproducible with palpation and worsens with deep breathing. however, she does have risk factor and has elevated troponin although her troponin is chronically elevated. EKG similar to previous with chronic LBBB. -Patient would not want to be transferred anywhere and would not want any intervention. *ESRD (MWF): Follows with Dr. Loco -anuric at baseline *Recurrent Ascites: suspected to be related to ESRD and gets regular paracentesis *Hypovolemic hyponatremia: *Hypokalemia, mild: *Leukocytosis: infectious vs reactive. source could be pulm vs cellulitis LLE although this presents more like venous stasis but could also be source of entry for skin pako. *Anemia, chronic: *PAF: on digoxin. 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 -Prognosis quite guarded P: -Dr. Loco for HD and electrolyte derangements -insulin/glucose x1 while awaiting HD -Cefepime, pending BC -check man diff -home basal insulin and SSI -cont Dig, prn lopressor -pt/ot -discuss warfarin for afib; was on it after left femur fx for period of time -ppx: heparin DNR
[2019-09-04] MEDS ORDERED: CEFEPIME 1 GM VIAL IV SCH (21:45)
[2019-09-04] MEDS ORDERED: METOPROLOL TARTRATE 5 MG/5 ML VIAL IV PRN ×2 (21:45→22:15)
[2019-09-04 21:53] LABS: Digoxin 0.9 ng/mL
[2019-09-04] MEDS ORDERED: ACETAMINOPHEN 325 MG TABLET PO PRN (22:15)
[2019-09-04] MEDS ORDERED: BISACODYL 10 MG SUPP.RECT PR PRN (22:15)
[2019-09-04] MEDS ORDERED: PETROLAT topical PRN (22:15)
[2019-09-04] MEDS ORDERED: INSULIN REGULAR, HUMAN 1 UNIT/0.01 ML UNIT IV ONE (22:15)
[2019-09-04] MEDS ORDERED: POLYETHYLENE GLYCOL 3350 17 GM PACKET PO PRN (22:15)
[2019-09-04] MEDS ORDERED: LACTULOSE 20 GM/30 ML ORAL.SOL PO PRN (22:15)
[2019-09-04] MEDS ORDERED: BISACODYL 5 MG TABLET PO PRN (22:15)
[2019-09-04] MEDS ORDERED: FLEETS ADULT ENEMA PR PRN (22:15)
[2019-09-04] MEDS ORDERED: diphenhydrAMINE 25 MG CAPSULE PO PRN (22:15)
[2019-09-04] MEDS ORDERED: PHENYLEPH topical PRN (22:15)
[2019-09-04] MEDS ORDERED: DEXTROSE 50% 50 ML VIAL IV ONE (22:15)
[2019-09-04] MEDS ORDERED: NITROGLYCERIN 0.4 MG TAB.SUBL SL PRN (22:15)
[2019-09-04] MEDS ORDERED: SENNOSIDES 1 TABLET PO PRN (22:15)
[2019-09-04] MEDS ORDERED: [UNRECOGNIZED DRUG - OTHER] topical PRN (22:15)
[2019-09-04] MEDS ORDERED: MINERAL OIL topical PRN (22:15)
[2019-09-04] MEDS: 0.9 % SODIUM CHLORIDE 10 ML SYRINGE IV SCH (22:20)
[2019-09-04 23:14] LABS: Band Neutrophils % 8 % (0-10); Basophils % (Manual) 1 % (0-2); Eosinophils % (Manual) 1 % (0-7); Lymphocytes % 12 % (15-49); Monocytes % (Manual) 4 % (1-12); Platelet Estimate NORMAL (NORMAL); RBC Morphology NORMAL (NORMAL); Segmented Neutrophils % 74 % (38-78)
[2019-09-04] MEDS: MELATONIN 3 MG TABLET PO SCH (23:29)
[2019-09-04] MEDS: ALBUTEROL SULFATE 2.5 MG/3 ML NEBULIZER NEB SCH (23:31)
[2019-09-04] MEDS ORDERED: ALBUTEROL SULFATE 2.5 MG/3 ML NEBULIZER ONE (23:31)
[2019-09-05] MEDS ORDERED: PHENobarb/HYOSCY/ATROPINE/SCOP 1 DOSE BOTTLE PO ONE (00:34)
[2019-09-05] MEDS ORDERED: DEXTROSE 50% 50 ML VIAL IV ONE (00:35)
[2019-09-05] MEDS ORDERED: INSULIN REGULAR, HUMAN 1 UNIT/0.01 ML UNIT ONE (00:38)
[2019-09-05] MEDS ORDERED: HYDROmorphone 2 MG/ML VIAL ONE (01:51)
[2019-09-05] MEDS ORDERED: ALBUTEROL SULFATE 2.5 MG/3 ML NEBULIZER ONE (02:06)
[2019-09-05] MEDS: ALBUTEROL SULFATE 2.5 MG/3 ML NEBULIZER NEB SCH ×6 (04:25→22:52)
[2019-09-05] MEDS: 0.9 % SODIUM CHLORIDE 10 ML SYRINGE IV SCH ×4 (05:43→20:33)
--- NOTE | 2019-09-05 06:28 | Emergency Department Note ---
ED Note Addendum Note Addendum: I discussed this case with the midlevel on several occasions and did interview the patient. I reviewed her EKGs and agree with admission to the hospital.
[2019-09-05 06:54] LABS: Hematocrit 32.4 % (34.1-44.9); Hemoglobin 10.9 g/dL (11.2-15.7); Mean Cell Volume 92.3 fL (80.0-100.0); Mean Corpuscular HGB Conc 33.6 g/dL (31.0-36.0); Mean Platelet Volume 9.2 fL (7.4-10.4); Platelet Count 306 K/mcL (140-440); RBC 3.51 M/mcL (3.59-5.38); Red Cell Distribution Width 14.5 % (11.5-14.5); WBC 17.5 K/mcL (4.50-11.00)
[2019-09-05 07:22] LABS: ALT/SGPT 10 U/l (0-40); AST/SGOT 24 U/l (0-37); Albumin 2.4 gm/dL (3.2-5.2); Albumin/Globulin Ratio 0.7 (1.0-2.3); Alkaline Phosphatase 189 U/L (39-117); Bilirubin,Direct 0.6 mg/dL (0.0-0.3); Blood Urea Nitrogen 48 mg/dl (8-23); Calcium 8.5 mg/dl (8.6-10.4); Carbon Dioxide 21 mmol/L (22-30); Chloride 87 mmol/L (96-108); Globulin 3.4 gm/dL (2.2-3.7); Glomerular Filtration Rate 7; Glucose 104 mg/dL (70-105); Lactate Dehydrogenase 235 U/L (94-250); Phosphorous 5.2 mg/dL (2.7-4.5); Triglycerides 72 mg/dl (<150); Uric Acid 4.1 mg/dL (2.5-8.0)
--- NOTE | 2019-09-05 07:27 | Internal Med Progress Note ---
Medical - PN: Subj Patient information: Note initiated : 09/05/19 at 7:23 am Service Date, if different from initiated Date: [] Patient: Shannon Alarcon 79 y/o F admitted on 09/04/19 for chest pain. Chief Complaint: [] Interval history: Ms. Alarcon is a 79 year old F End-stage renal disease patient and her heart failure patient who presents to the ED with chest pain. She states the pain started about 1:00 today and has been constant. She says it feeling of big ball on her chest essentially not really radiating but does complain of worsening pain in her shoulders which she has chronic pain as well as worsening pain in her back. The pain is been constant since then nothing has made it better. Things that make it worse are taking a deep breath. In the ED her troponin was elevated although it is chronically elevated, last time he was 0.12 it is 0.15 this time. EKG looks the same as her prior EKGs. The pain started while she was sitting in her wheelchair. She has had increased shortness of breath since then because of the pain. On examining her it is pain is reproducible on palpation. Patient states that she would not want to be transferred even if it was cardiac or for any other reason.. She does not want any procedures and if this was her heart and she was deteriorating she would want to be made comfortable. She did go to [facility] last week for a paracentesis after her dialysis. She did have shortness of breath at that time and the paracentesis did improve shortness of breath. In the ED she was a found a pulmonary congestion she did have a mild leukocytosis but denies fevers. She has a chronic cough but she feels there is no change in her cough. She has chronic edema in her legs and may be a little worse than usual. She has some nausea. She does not urinate at all. She is on dialysis Thursday. Her sodium was found to be low at 120 she had a mild elevated potassium level. Lactate mildly elevated Chest x-ray pulmonary congestion could not rule out underlying infiltrate. Case was discussed with turn supervisor who felt that we could do dialysis first thing in the morning. She has a DNR CODE STATUS and I discussed with her her case. Multiple recent hospitalizations her current state and her previously mentioned directives. Patient does not want any heroic measures or procedures. He is okay with antibiotics and IV fluids if needed. She again states she does not want to be transferred anywhere. If she declines she wants to be made comfort care only. 09/05 Patient did respond to GI cocktail last night, well. Patient has no chest pain this morning. Occasional cough and some shortness of breath but minimal. Denies any other pains or complaints. Review of Systems: denies headache/fever/chills/nausea/vomiting/abdominal pain/diarrhea. Otherwise see above. - Constitutional Vitals: Vital Signs Temp Pulse Resp BP Pulse Ox 97.3 F 83 20 86/69 95 09/05/19 04:04 09/05/19 05:07 09/05/19 05:07 09/05/19 05:06 09/05/19 05:07 Period Temp Pulse Resp BP Sys/Fonseca Pulse Ox Last 24 Hr 97.3 F-98.8 F 32-117 16-36 71-155/31-131 85-100 Intake and Output 09/04/19 09/05/19 09/05/19 21:59 05:59 13:59 Intake Total 100 Balance 100 Weight 97.522 kg Intake & Output: Intake & Output 09/04/19 09/05/19 09/05/19 21:59 05:59 13:59 Intake Total 100 Balance 100 Weight 97.522 kg Intake: IV 100 Exam: General: Alert, Awake, No acute Distress, obese Eyes/N/T: EOMI Head/Neck: neck supple, CV: RRR, 2/6 SM, Pulm: mild on left, diminished b/l, no wheezing Abd: soft, nontender, +BS x4 Ext: no clubbing/cyanosis, 3+ b/l LE, venous stasis changes bilaterally with dermatitis on the left Neuro: Alert, no focal deficits, moves all extremities weakly, Skin: warm/dry Medical - PN: Obj Da - Labs CBC & Chem 7: 09/05/19 05:50 09/05/19 05:50 Labs: Abnormal Lab Results 09/05/19 09/05/19 09/05/19 05:50 05:50 05:50 WBC RBC Hgb Hct RDW Gran % Lymph % (Auto) Gran # Lymph # (Auto) Lymphocytes % VBG Lactic Acid 2.2 H Sodium 123 L Potassium 5.8 H Chloride 87 L Carbon Dioxide 21 L BUN 48 H Creatinine 5.1 H* Glucose Calcium 8.5 L Phosphorus 5.2 H Total Bilirubin Direct Bilirubin 0.6 H GGT 103 H Alkaline Phosphatase 189 H Myoglobin Troponin T 0.14 H* NT-Pro-B Natriuret Pep Total Protein 5.8 L Albumin 2.4 L Globulin Albumin/Globulin Ratio 0.7 L 09/05/19 09/04/19 09/04/19 05:50 19:50 17:35 WBC 17.5 H RBC 3.51 L Hgb 10.9 L Hct 32.4 L RDW Gran % Lymph % (Auto) Gran # Lymph # (Auto) Lymphocytes % 12 L VBG Lactic Acid 2.5 H Sodium Potassium Chloride Carbon Dioxide BUN Creatinine Glucose Calcium Phosphorus Total Bilirubin Direct Bilirubin GGT Alkaline Phosphatase Myoglobin Troponin T NT-Pro-B Natriuret Pep Total Protein Albumin Globulin Albumin/Globulin Ratio 09/04/19 09/04/19 09/04/19 17:35 17:35 17:35 WBC RBC Hgb Hct RDW Gran % Lymph % (Auto) Gran # Lymph # (Auto) Lymphocytes % VBG Lactic Acid Sodium 120 L Potassium 5.5 H Chloride 82 L Carbon Dioxide BUN 44 H Creatinine 4.9 H Glucose 172 H Calcium Phosphorus Total Bilirubin 1.1 H Direct Bilirubin GGT Alkaline Phosphatase 254 H Myoglobin 119 H Troponin T 0.15 H* NT-Pro-B Natriuret Pep 13068.0 H Total Protein Albumin Globulin 4.0 H Albumin/Globulin Ratio 0.8 L 09/04/19 17:35 WBC 13.9 H RBC Hgb Hct RDW 14.6 H Gran % 84.6 H Lymph % (Auto) 9.7 L Gran # 11.79 H Lymph # (Auto) 1.35 L Lymphocytes % VBG Lactic Acid Sodium Potassium Chloride Carbon Dioxide BUN Creatinine Glucose Calcium Phosphorus Total Bilirubin Direct Bilirubin GGT Alkaline Phosphatase Myoglobin Troponin T NT-Pro-B Natriuret Pep Total Protein Albumin Globulin Albumin/Globulin Ratio Meds: Medications Acetaminophen (Tylenol) 650 mg PO Q4-6HP PRN PRN Reason: PAIN/FEVER > 101 Albuterol Sulfate (Ventolin) 2.5 mg NEB Q4HRT [facility] Last Admin: 09/05/19 04:25 Dose: Not Given Documented by: Aspirin (Aspirin) 81 mg PO DAILY [facility] Bisacodyl (Dulcolax) 10 mg PO DAILY PRN PRN Reason: Constipation Bisacodyl (Dulcolax) 10 mg OH DAILY PRN PRN Reason: Constipation Cefepime HCl (Maxipime) 1 gm IV Q24H [facility]; Protocol Digoxin (Lanoxin) 125 mcg PO MoWeFr@1400 [facility] Diphenhydramine HCl (Benadryl) 25 mg PO HSP PRN PRN Reason: Insomnia Docusate Sodium (Colace) 100 mg PO BID ADE[facility] Famotidine (Pepcid) 20 mg IV HS ADELINA Fentanyl (Duragesic) 12 mcg TD Q72H [facility] Heparin Sodium (Porcine) (Heparin) 5,000 unit SQ Q12 ADE[facility]A Hydromorphone HCl (Dilaudid) 0 mg IV Q2HP PRN PRN Reason: PAIN LEVEL > 6 Insulin Glargine (Lantus) 5 unit SQ DAILY [facility] Lactulose (Cephulac) 20 gm PO BIDP PRN PRN Reason: Constipation Levothyroxine Sodium (Synthroid) 75 mcg PO QAMAC [facility] Melatonin (Melatonin 3mg Tablet) 3 mg PO QHS [facility] Last Admin: 09/04/19 23:29 Dose: Not Given Documented by: Metoprolol Tartrate (Lopressor) 5 mg IV Q2HP PRN PRN Reason: Tachyarrhythmias HR>110 Midodrine (Midodrine Hcl) 5 mg PO TID@0800,1200,1700 [facility] Nitroglycerin (Nitrostat) 0.4 mg SL Q5M PRN PRN Reason: Chest Pain Non-Formulary Medication (Phenyleph/Mineral Oil/Petrolat [Preparation H Ointment]) 1 dose topical PRN PRN PRN Reason: hemorroids Ondansetron HCl (Zofran) 4 mg IV Q4-6HP PRN PRN Reason: Nausea And Vomiting Polyethylene Glycol (Miralax) 17 gm PO QDP PRN PRN Reason: Constipation Senna (Senokot) 1 tab PO HSP PRN PRN Reason: Constipation Sodium Biphosphate/Sodium Phosphate (Fleets Adult) 1 dose OH DAILYP PRN PRN Reason: Constipation Sodium Chloride (Saline Flush) 10 ml IV Q8 [facility] Last Admin: 09/05/19 05:43 Dose: 10 ml Documented by: Medical - PN: A/P - Time Spent With Patient Total time spent is greater than 50% in coordination of care (as documented) at patient's floor/unit and/or counseling patient: - Narrative A/P Narrative: A: *Acute on chronic systolic CHF (EF 30% on 07/2016): -echo in 2017 also showed LV moderately dilated, severe MR, mod-sev TR (reports says pt declined ICD/BiV pacer) -occasionally wears O2 at home *Anasarca: *Chest pain: appears MSK vs GI as is reproducible with palpation and worsens with deep breathing, but she did respond well to GI cocktail. She does have risk factor and has elevated troponin although her troponin is chronically elevated and level on repeat. EKG similar to previous with chronic LBBB. -Patient would not want to be transferred anywhere and would not want any intervention if cardiac related *ESRD (MWF): Follows with Dr. Loco -tiburciouric at baseline *Recurrent Ascites: suspected to be related to ESRD and gets regular paracentesis *Hypervolemic hyponatremia: *Hyperkalemia: *Leukocytosis: infectious vs reactive. source could be pulm vs cellulitis LLE although this presents more like venous stasis but could also be source of entry for skin pako. -increased today, no bandemia, afebrile *Anemia, chronic: *PAF: on digoxin. 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 -Prognosis quite guarded P: -Dr. Loco for HD and electrolyte derangements -Cefepime, pending BC -home basal insulin and SSI -cont Dig, prn lopressor -increase midodrine to 10mg tid -prn gi cocktail -pt/ot -discuss warfarin for afib; was on it after left femur fx for period of time -ppx: heparin
[2019-09-05] MEDS: LEVOTHYROXINE 75 MCG TABLET PO SCH (07:52)
[2019-09-05] MEDS: MIDODRINE 5 MG TABLET PO SCH ×3 (07:59→16:40)
[2019-09-05] MEDS ORDERED: MIDODRINE 5 MG TABLET PO SCH (08:00)
[2019-09-05] MEDS ORDERED: PHENobarb/HYOSCY/ATROPINE/SCOP 1 DOSE BOTTLE PO PRN (08:09)
[2019-09-05] MEDS ORDERED: PHENYLEPHRINE 10 MG in 0.9 % SODIUM CHLORIDE 499 ML IV SCH (08:15)
[2019-09-05 09:20] LABS: Anisocytosis FEW (NONE SEEN); Band Neutrophils % 3 % (0-10); Lymphocytes % 4 % (15-49); Monocytes % (Manual) 4 % (1-12); Ovalocytes FEW (NONE SEEN); Platelet Estimate NORMAL (NORMAL); Polychromasia FEW (NONE SEEN); RBC Morphology ABNORM (NORMAL); Segmented Neutrophils % 89 % (38-78)
[2019-09-05] MEDS: ASPIRIN 81 MG TAB.CHEW PO SCH (09:27)
[2019-09-05] MEDS: HEPARIN 5,000 UNIT/ML VIAL SQ SCH ×2 (09:27→20:35)
[2019-09-05] MEDS: INSULIN GLARGINE, HUMAN 1 UNIT/0.01 ML SQ SCH (09:32)
[2019-09-05] MEDS: DOCUSATE SODIUM 100 MG CAPSULE PO SCH ×2 (09:32→20:37)
[2019-09-05] MEDS ORDERED: fentaNYL 12 MCG PATCH TD SCH (10:00)
[2019-09-05] MEDS: 0.9 % SODIUM CHLORIDE 250 ML IV SCH ×2 (11:50→23:08)
[2019-09-05] MEDS: PHENYLEPHRINE IV SCH ×2 (13:15→19:36)
[2019-09-05] MEDS: DEXTROSE 5% IV SCH ×2 (13:15→19:36)
[2019-09-05] MEDS: WATER IV SCH ×2 (13:15→19:36)
--- NOTE | 2019-09-05 14:10 | Nephrology Procedure Note ---
Patient information: Note initiated : 09/05/19 at 2:07 pm Service Date, if different from initiated Date: [] Patient: Shannon Alarcon 79 y/o F admitted on 09/04/19 for chest pain. Chief Complaint: [] Date of procedure: 09/05/19 Procedure Performed: femoral dialysis catheter Procedure: The area of the right groin is preped and draped. Under ultrasound guidance, the right femoral vein was accessed and a guide wire was passed. The femoral vein was dialated with serial dialators and a femoral catheter was inserted. Patient tolerated the procedure well. No complications noted. Surgeon: Cristian Loco Pathology: none sent Condition: stable Disposition: ICU
--- NOTE | 2019-09-05 14:59 | Consultation ---
DATE OF CONSULTATION: 09/05/2019 REQUESTING PHYSICIAN: Silas Jose D.O. HISTORY OF PRESENT ILLNESS: The patient is an 79-year-old female with a history of end-stage renal disease on hemodialysis. She dialyzes Mondays, Wednesdays, Fridays. She has progressive heart failure. Recently she has developed significant ascites as well for which she has been having multiple abdominal taps. She has been referred to Dr. Rod for a TIPS procedure as she has more cirrhosis of the liver. She recently had a GI bleed as well. The patient presented to the emergency room complaining of chest discomfort. She also had shoulder pain which has been fairly chronic. She has had trouble taking deep breaths. Troponin was slightly elevated, but the EKG looked normal. She had pain when she was sitting in the wheelchair and increasing shortness of breath as well. For this reason, she is hospitalized. In the emergency room, she was found to have a leukocytosis and a chest x-ray showed pulmonary congestion. She has chronic leg edema a little worse than usual. She has on and off nausea. PAST MEDICAL HISTORY: Significant for: 1. Diabetes, longstanding. 2. End-stage renal disease on hemodialysis-dialyzes Mondays, Wednesdays, Fridays; ascites related to cirrhosis of liver. 3. Chronic congestive heart failure. 4. Chronic anemia. 5. Chronic congestive heart failure with an EF of 25 to 30% on echocardiogram in September 2015. She has been on home O2. 6. Atrial fibrillation. 7. Hypothyroidism. 8. Clotted fistula for which she has been referred for surgery. PAST SURGICAL HISTORY: 1. History of total abdominal hysterectomy with bilateral salpingo-oophorectomy. 2. Cholecystectomy. FAMILY HISTORY: Mother had lung cancer. SOCIAL HISTORY: She used to smoke and quit for over 40 years ago. She lives with her . She denies any alcohol or drug use. She walks around with a walker. ALLERGIES: PENICILLINS, MORPHINE, QUINAPRIL, CODEINE. MEDICATIONS ON ADMISSION: 1. Vitamin D3 250 mg 1 capsule once daily. 2. Digoxin 125 mcg 3 days a week. 3. Colace 100 mg once daily. 4. Midodrine 5 mg 3 times daily. 5. Aspirin 81 mg daily. 6. Acetaminophen 325 mg once daily. 7. Nephro-Serenity 1 tablet once daily. 8. Glargine insulin. 9. Levothyroxine 75 mcg once daily. 10. MiraLax 17 grams as needed. PHYSICAL EXAMINATION: GENERAL: The patient is alert, oriented x3. She is not in any distress. VITAL SIGNS: Blood pressures are 80s to 100 systolic with a diastolic in the 50s, pulse rates have been in the 60s. HEENT: AT/NC. Pupils are reactive to light. External auditory canals appear normal. Bilateral nares normal mucosa. NECK: Supple. No jugular venous distention. No lymphadenopathy. No thyromegaly. LUNGS: Decreased air entry bilaterally. Rales heard in the bases. CARDIAC: S1 and S2 heard. No S3, S4. No murmurs. No rubs. ABDOMEN: Soft, nontender. No organomegaly. Positive bowel sounds. Abdomen is distended. EXTREMITIES: Showed 4+ edema bilaterally. LABORATORY DATA: White count 17.5, hemoglobin of 10.9 and platelet count of 306. Sodium 123, potassium 5.8, chloride 97, CO2 21, BUN 48, creatinine 5.1, phosphorus 5.2, magnesium 1.9. BNP 44,559. ASSESSMENT AND PLAN: 1. 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 She was attempted to dialyze today. Her fistula is clotted. For that reason, I put in a temporary dialysis catheter. She will need a tunneled dialysis catheter once she is discharged from the hospital. 2. Volume overload. She clearly has anasarca and is related to cirrhosis of the liver. We will attempt to remove as much fluid as possible, assisting with the blood pressure, with Ziyad-Synephrine. 3. Anemia of chronic disease. 4. Pneumonia. No further problems, management per hospitalist. RUDDY:lynn Job ID: [id number] Doc ID: [id number] Cristian Jose DO
[2019-09-05] MEDS: DIGOXIN 125 MCG TABLET PO SCH (15:46)
[2019-09-05] MEDS: MIDODRINE 5 MG TABLET PO PRN (18:59)
[2019-09-05] MEDS: FAMOTIDINE/PF 20 MG/2 ML VIAL IV SCH (20:35)
[2019-09-05] MEDS: MELATONIN 3 MG TABLET PO SCH ×2 (20:35→20:59)
[2019-09-05] MEDS: CEFEPIME 1 GM VIAL IV SCH (20:36)
[2019-09-06] MEDS: DEXTROSE 5% IV SCH ×3 (00:56→19:46)
[2019-09-06] MEDS: PHENYLEPHRINE IV SCH ×3 (00:56→19:46)
[2019-09-06] MEDS: WATER IV SCH ×3 (00:56→19:46)
[2019-09-06] MEDS: 0.9 % SODIUM CHLORIDE 250 ML IV SCH ×2 (03:30→21:19)
[2019-09-06] MEDS: ALBUTEROL SULFATE 2.5 MG/3 ML NEBULIZER NEB SCH ×6 (04:14→23:35)
[2019-09-06] MEDS: ONDANSETRON 4 MG/2 ML VIAL IV PRN ×2 (04:50→10:57)
[2019-09-06] MEDS: 0.9 % SODIUM CHLORIDE 10 ML SYRINGE IV SCH ×7 (05:58→22:01)
[2019-09-06] MEDS: HYDROmorphone 2 MG/ML VIAL IV PRN ×2 (06:41→23:25)
[2019-09-06] MEDS: LEVOTHYROXINE 75 MCG TABLET PO SCH (07:17)
--- NOTE | 2019-09-06 07:17 | Internal Med Progress Note ---
Medical - PN: Subj Patient information: Note initiated : 09/06/19 at 7:15 am Service Date, if different from initiated Date: [] Patient: Shannon Alarcon 79 y/o F admitted on 09/04/19 for chest pain. Chief Complaint: [] Interval history: Ms. Alarcon is a 79 year old F End-stage renal disease patient and her heart failure patient who presents to the ED with chest pain. She states the pain started about 1:00 today and has been constant. She says it feeling of big ball on her chest essentially not really radiating but does complain of worsening pain in her shoulders which she has chronic pain as well as worsening pain in her back. The pain is been constant since then nothing has made it better. Things that make it worse are taking a deep breath. In the ED her troponin was elevated although it is chronically elevated, last time he was 0.12 it is 0.15 this time. EKG looks the same as her prior EKGs. The pain started while she was sitting in her wheelchair. She has had increased shortness of breath since then because of the pain. On examining her it is pain is reproducible on palpation. Patient states that she would not want to be transferred even if it was cardiac or for any other reason.. She does not want any procedures and if this was her heart and she was deteriorating she would want to be made comfortable. She did go to [facility] last week for a paracentesis after her dialysis. She did have shortness of breath at that time and the paracentesis did improve shortness of breath. In the ED she was a found a pulmonary congestion she did have a mild leukocytosis but denies fevers. She has a chronic cough but she feels there is no change in her cough. She has chronic edema in her legs and may be a little worse than usual. She has some nausea. She does not urinate at all. She is on dialysis Thursday. Her sodium was found to be low at 120 she had a mild elevated potassium level. Lactate mildly elevated Chest x-ray pulmonary congestion could not rule out underlying infiltrate. Case was discussed with smoking pipe maker who felt that we could do dialysis first thing in the morning. She has a DNR CODE STATUS and I discussed with her her case. Multiple recent hospitalizations her current state and her previously mentioned directives. Patient does not want any heroic measures or procedures. He is okay with antibiotics and IV fluids if needed. She again states she does not want to be transferred anywhere. If she declines she wants to be made comfort care only. 09/05 Patient did respond to GI cocktail last night, well. Patient has no chest pain this morning. Occasional cough and some shortness of breath but minimal. Denies any other pains or complaints. 09/06 Patient was off vasopressors but had to go back on this morning. And will definitely need while undergoing hemodialysis. Reports some abdominal pain. Pain records from acute need for July admission. Has baseline shortness of breath. Denies cough. Had some nausea. Had some diarrhea which is chronic in nature. Review of Systems: denies headache/fever/chills/nausea/vomiting/chest pain. Otherwise see above. - Constitutional Vitals: Vital Signs Temp Pulse Resp BP Pulse Ox 97.5 F 92 H 19 99/70 100 09/06/19 04:00 09/06/19 04:25 09/06/19 04:25 09/06/19 04:00 09/06/19 04:25 Period Temp Pulse Resp BP Sys/Fonseca Pulse Ox Last 24 Hr 97.3 F-98.3 F 71-96 15-25 42-101/30-71 93-100 Intake and Output 09/05/19 09/06/19 09/06/19 21:59 05:59 13:59 Intake Total 450 320 Output Total 3600 Balance -3150 320 Weight 89.902 kg Intake & Output: Intake & Output 09/05/19 09/06/19 09/06/19 21:59 05:59 13:59 Intake Total 450 320 Output Total 3600 Balance -3150 320 Weight 89.902 kg Intake: IV 250 320 Sodium Chloride 0.9% 250 ml @ 3 20 mls/hr IV .[id number] [facility] Rx#: [id number] Neosynephrine/Vazculep 20 mg In 250 317 Dextrose 5% in Water 248 ml @ 0.5 MCG/KG/MIN 34.496 mls/hr IV Q12H [facility] Rx#:[id number] Oral 200 Output: Hemodialysis UF 3600 Other: Stool Size Smear Small Stool Color Brown Brown Stool Consistency Loose Loose Exam: General: Alert, Awake, No acute Distress, obese Eyes/N/T: EOMI Head/Neck: neck supple, CV: irreg irreg, 2/6 SM, Pulm: mild on left, diminished b/l, no wheezing Abd: soft, nontender, +BS x4 Ext: no clubbing/cyanosis, 3+ b/l LE, venous stasis changes bilaterally with dermatitis on the left Neuro: Alert, no focal deficits, moves all extremities weakly, Skin: warm/dry Medical - PN: Obj Da - Labs CBC & Chem 7: 09/06/19 06:33 09/06/19 06:33 Labs: Abnormal Lab Results 09/05/19 09/05/19 09/05/19 05:50 05:50 05:50 WBC RBC Hgb Hct RDW Gran % Lymph % (Auto) Gran # Lymph # (Auto) Seg Neutrophils % Lymphocytes % RBC Morphology Polychromasia Anisocytosis Ovalocytes VBG Lactic Acid 2.2 H Sodium 123 L Potassium 5.8 H Chloride 87 L Carbon Dioxide 21 L BUN 48 H Creatinine 5.1 H* Glucose Calcium 8.5 L Phosphorus 5.2 H Total Bilirubin Direct Bilirubin 0.6 H GGT 103 H Alkaline Phosphatase 189 H Myoglobin Troponin T 0.14 H* NT-Pro-B Natriuret Pep Total Protein 5.8 L Albumin 2.4 L Globulin Albumin/Globulin Ratio 0.7 L 09/05/19 09/04/19 09/04/19 05:50 19:50 17:35 WBC 17.5 H RBC 3.51 L Hgb 10.9 L Hct 32.4 L RDW Gran % Lymph % (Auto) Gran # Lymph # (Auto) Seg Neutrophils % 89 H Lymphocytes % 4 L 12 L RBC Morphology Abnorm A Polychromasia Few A Anisocytosis Few A Ovalocytes Few A VBG Lactic Acid 2.5 H Sodium Potassium Chloride Carbon Dioxide BUN Creatinine Glucose Calcium Phosphorus Total Bilirubin Direct Bilirubin GGT Alkaline Phosphatase Myoglobin Troponin T NT-Pro-B Natriuret Pep Total Protein Albumin Globulin Albumin/Globulin Ratio 09/04/19 09/04/19 09/04/19 17:35 17:35 17:35 WBC RBC Hgb Hct RDW Gran % Lymph % (Auto) Gran # Lymph # (Auto) Seg Neutrophils % Lymphocytes % RBC Morphology Polychromasia Anisocytosis Ovalocytes VBG Lactic Acid Sodium 120 L Potassium 5.5 H Chloride 82 L Carbon Dioxide BUN 44 H Creatinine 4.9 H Glucose 172 H Calcium Phosphorus Total Bilirubin 1.1 H Direct Bilirubin GGT Alkaline Phosphatase 254 H Myoglobin 119 H Troponin T 0.15 H* NT-Pro-B Natriuret Pep 08687.0 H Total Protein Albumin Globulin 4.0 H Albumin/Globulin Ratio 0.8 L 09/04/19 17:35 WBC 13.9 H RBC Hgb Hct RDW 14.6 H Gran % 84.6 H Lymph % (Auto) 9.7 L Gran # 11.79 H Lymph # (Auto) 1.35 L Seg Neutrophils % Lymphocytes % RBC Morphology Polychromasia Anisocytosis Ovalocytes VBG Lactic Acid Sodium Potassium Chloride Carbon Dioxide BUN Creatinine Glucose Calcium Phosphorus Total Bilirubin Direct Bilirubin GGT Alkaline Phosphatase Myoglobin Troponin T NT-Pro-B Natriuret Pep Total Protein Albumin Globulin Albumin/Globulin Ratio Meds: Medications Albuterol Sulfate (Ventolin) 2.5 mg NEB Q4HRT [facility] Last Admin: 09/06/19 07:15 Dose: 2.5 mg Documented by: Aspirin (Aspirin) 81 mg PO DAILY [facility] Last Admin: 09/05/19 09:27 Dose: 81 mg Documented by: Belladonna/Phenobarbital (Gi Cocktail) 1 dose PO Q4HP PRN PRN Reason: Dyspepsia Bisacodyl (Dulcolax) 10 mg PO DAILY PRN PRN Reason: Constipation Bisacodyl (Dulcolax) 10 mg AR DAILY PRN PRN Reason: Constipation Cefepime HCl (Maxipime) 1 gm IV Q24H [facility]; Protocol Last Admin: 09/05/19 20:36 Dose: 1 gm Documented by: Digoxin (Lanoxin) 125 mcg PO MoWeFr@1400 [facility] Last Admin: 09/05/19 15:46 Dose: 125 mcg Documented by: Diphenhydramine HCl (Benadryl) 25 mg PO HSP PRN PRN Reason: Insomnia Docusate Sodium (Colace) 100 mg PO BID [facility] Last Admin: 09/05/19 20:37 Dose: Not Given Documented by: Famotidine (Pepcid) 20 mg IV HS [facility] Last Admin: 09/05/19 20:35 Dose: 20 mg Documented by: Fentanyl (Duragesic) 12 mcg TD Q72H [facility] Heparin Sodium (Porcine) (Heparin) 5,000 unit SQ Q12 [facility] Last Admin: 09/05/19 20:35 Dose: 5,000 unit Documented by: Hydromorphone HCl (Dilaudid) 0 mg IV Q2HP PRN PRN Reason: PAIN LEVEL > 6 Last Admin: 09/06/19 06:41 Dose: 0.5 mg Documented by: Sodium Chloride (Sodium Chloride 0.9%) 250 mls @ 20 mls/hr IV .[id number] [facility] Last Infusion: 09/06/19 04:00 Dose: 20 mls/hr Documented by: Phenylephrine HCl 20 mg/ (Dextrose) 250 mls @ 34.496 mls/hr IV Q12H [facility]; Protocol Last Titration: 09/06/19 04:00 Dose: 0 mcg/kg/min, 0 mls/hr Documented by: Insulin Glargine (Lantus) 5 unit SQ DAILY [facility] Last Admin: 09/05/19 09:32 Dose: 5 units Documented by: Lactulose (Cephulac) 20 gm PO BIDP PRN PRN Reason: Constipation Levothyroxine Sodium (Synthroid) 75 mcg PO QAMAC [facility] Last Admin: 09/05/19 07:52 Dose: 75 mcg Documented by: Melatonin (Melatonin 3mg Tablet) 3 mg PO QHS [facility] Last Admin: 09/05/19 20:59 Dose: Not Given Documented by: Metoprolol Tartrate (Lopressor) 5 mg IV Q2HP PRN PRN Reason: Tachyarrhythmias HR>110 Midodrine (Midodrine Hcl) 10 mg PO TID@0800,1200,1700 [facility] Last Admin: 09/05/19 16:40 Dose: 10 mg Documented by: Midodrine (Midodrine Hcl) 10 mg PO Q2HP PRN PRN Reason: Hypotension Last Admin: 09/05/19 18:59 Dose: 10 mg Documented by: Nitroglycerin (Nitrostat) 0.4 mg SL Q5M PRN PRN Reason: Chest Pain Ondansetron HCl (Zofran) 4 mg IV Q4-6HP PRN PRN Reason: Nausea And Vomiting Polyethylene Glycol (Miralax) 17 gm PO QDP PRN PRN Reason: Constipation Senna (Senokot) 1 tab PO HSP PRN PRN Reason: Constipation Sodium Biphosphate/Sodium Phosphate (Fleets Adult) 1 dose AR DAILYP PRN PRN Reason: Constipation Sodium Chloride (Saline Flush) 10 ml IV Q8 [facility] Last Admin: 09/06/19 06:42 Dose: 10 ml Documented by: Medical - PN: A/P - Time Spent With Patient Total time spent is greater than 50% in coordination of care (as documented) at patient's floor/unit and/or counseling patient: - Narrative A/P Narrative: A: *Acute on chronic systolic CHF (EF 30% on 07/2016): -echo in 2017 also showed LV moderately dilated, severe MR, mod-sev TR (reports says pt declined ICD/BiV pacer) -occasionally wears O2 at home *Anasarca/volume overload: *Chest pain: appears MSK vs GI as is reproducible with palpation and worsens with deep breathing, but she did respond well to GI cocktail. She does have risk factor and has elevated troponin although her troponin is chronically elevated and level on repeat. EKG similar to previous with chronic LBBB. -Patient would not want to be transferred anywhere and would not want any intervention if cardiac related *ESRD (MWF): Follows with Dr. Loco -yaya at baseline *Recurrent Ascites: suspected to be related to ESRD and gets regular paracen tesis *Hypervolemic hyponatremia: *Hyperkalemia: *Leukocytosis: infectious vs reactive. Infectious source could be Pulm vs cellulitis LLE although this presents more like venous stasis but could also be source of entry for skin pako VS her chronic colovaginal fistula -resolved, no bandemia, afebrile *Anemia, chronic: *PAF: on digoxin. do not see any anticoagulation, possible recent GI bleed *Chronic LBBB: *DM: on levemir *Hypothyroidism: *History of colovaginal fistula: as been followed by surgery outpt, deemed extremely high risk for surgery *Obesity: *Hypotension: pt sbp runs 80-90's per , she is on midodrine 5 tid at home -required vasopressor yesterday and last night *Goals of care: Patient does not want aggressive measures and if she declines wants to be made comfort care only -pt with significant comorbidities and significant decline over the last 6 months. -Prognosis quite guarded P: -Dr. Loco for HD and electrolyte derangements -Cefepime, pending BC -CT a/p -records from [facility] -wean vasopressors -home basal insulin and SSI -cont Dig, prn lopressor -increased midodrine to 10mg tid -prn gi cocktail -pt/ot -discuss warfarin for afib; was on it after left femur fx for period of time. possible recent GI bleed -hospice eval, continue goals of discussion -ppx: heparin Medical - PN: Qual - VTE Deep Vein Thrombosis/Pulmonary Embolism Present on Admission: No
[2019-09-06] MEDS: MIDODRINE 5 MG TABLET PO SCH ×3 (07:18→18:09)
[2019-09-06 08:04] LABS: Hematocrit 30.4 % (34.1-44.9); Hemoglobin 10.3 g/dL (11.2-15.7); Mean Corpuscular HGB Conc 33.9 g/dL (31.0-36.0); Mean Platelet Volume 9.2 fL (7.4-10.4); Platelet Count 287 K/mcL (140-440); RBC 3.27 M/mcL (3.59-5.38); Red Cell Distribution Width 14.5 % (11.5-14.5); WBC 10.1 K/mcL (4.50-11.00)
[2019-09-06 08:31] LABS: Anisocytosis FEW (NONE SEEN); Band Neutrophils % 2 % (0-10); Basophils % (Manual) 1 % (0-2); Lymphocytes % 5 % (15-49); Monocytes % (Manual) 2 % (1-12); Platelet Estimate NORMAL (NORMAL); Polychromasia FEW (NONE SEEN); RBC Morphology ABNORM (NORMAL); Reactive Lymphocytes 1 % (0-2); Segmented Neutrophils % 89 % (38-78)
[2019-09-06 09:02] LABS: ALT/SGPT 11 U/l (0-40); AST/SGOT 27 U/l (0-37); Albumin 2.2 gm/dL (3.2-5.2); Albumin/Globulin Ratio 0.7 (1.0-2.3); Alkaline Phosphatase 169 U/L (39-117); Bilirubin,Direct 0.5 mg/dL (0.0-0.3); Bilirubin,Total 0.9 mg/dL (0.0-1.0); Blood Urea Nitrogen 41 mg/dl (8-23); Calcium 8.1 mg/dl (8.6-10.4); Carbon Dioxide 21 mmol/L (22-30); Chloride 91 mmol/L (96-108); Globulin 3.2 gm/dL (2.2-3.7); Glomerular Filtration Rate 9; Glucose 107 mg/dL (70-105); Lactate Dehydrogenase 225 U/L (94-250); Phosphorous 5.2 mg/dL (2.7-4.5); Triglycerides 91 mg/dl (<150)
[2019-09-06] MEDS ORDERED: ALBUMIN HUMAN 25 GM/100 ML BAG IV ONE (09:08)
--- NOTE | 2019-09-06 09:12 | Nephrology Progress Note ---
Subjective Patient information: Note initiated : 09/06/19 at 9:08 am Service Date, if different from initiated Date: [] Patient: Shannon Alarcon 79 y/o F admitted on 09/04/19 for chest pain. Chief Complaint: [] Says tired. She has received some sedation this morning. Objective - Vital Signs Vital signs: Vital Signs Temp Pulse Pulse Resp BP Pulse Ox 09/06/19 07:18 93 H 16 09/06/19 06:00 93 H 18 71/56 95 09/06/19 05:20 111 H 09/06/19 05:03 100 H 09/06/19 05:02 99 H 09/06/19 05:00 107 H 19 89/55 95 09/06/19 04:00 97.5 F 20 99/70 96 09/06/19 03:00 91 H 21 97/55 98 09/06/19 02:00 77 16 87/56 100 09/06/19 01:24 86 20 98 09/06/19 01:00 88 20 82/71 98 09/06/19 00:44 90 09/06/19 00:31 95 H 18 93/67 100 09/06/19 00:23 87 L 09/06/19 00:10 96 H 98 09/06/19 00:00 97.3 F 93 H 21 89/66 94 09/05/19 23:01 81 21 75/65 100 09/05/19 22:13 25 H 86/62 09/05/19 21:45 95 H 21 87/67 97 09/05/19 21:16 92 H 19 67/54 96 09/05/19 21:02 89 94 09/05/19 21:01 88 18 97/65 94 09/05/19 20:46 97.9 F 89 19 96/66 94 09/05/19 20:43 72 15 97/58 98 09/05/19 20:40 98.2 F 74 97/58 09/05/19 20:31 73 17 99/64 95 09/05/19 20:30 74 99/64 09/05/19 20:20 85 19 88/58 96 09/05/19 20:19 79 20 75/58 95 09/05/19 20:18 88 22 42/30 100 09/05/19 20:16 84 17 72/47 97 02/24/20 20:04 83 16 82/50 97 02/24/20 20:01 71 17 63/47 95 02/24/20 19:50 76 85/48 02/24/20 19:46 71 16 85/48 95 02/24/20 19:34 71 79/48 02/24/20 19:31 71 17 79/48 96 /24/20 19:16 73 17 86/50 100 0224/20 19:15 73 86/50 0224/20 19:05 77 18 0224/20 19:01 72 17 75/46 95 02/24/20 18:47 72 18 77/47 96 /24/20 18:46 73 17 77/44 95 /24/20 18:32 75 17 86/49 95 /24/20 18:31 76 19 67/47 94 /24/20 18:30 73 86/49 0224/20 18:17 74 18 83/63 96 24/20 18:16 77 18 67/53 95 24/20 18:03 74 17 95 24/20 18:00 77 85/66 02/24/20 17:56 81 85/66 02/24/20 17:46 84 17 85/66 96 24/20 17:35 77 18 94 24/20 17:33 78 17 88/56 96 24/20 17:31 81 88/56 0224/20 17:18 78 17 90/58 95 /24/20 17:16 78 90/58 0224/20 17:09 78 77/50 0224/20 17:01 78 17 77/50 93 0224/20 17:00 79 17 95 24/20 16:56 81 73/49 02/24/20 16:40 97.5 F 82 77/55 02/24/20 16:31 83 18 77/55 95 02/24/20 16:01 98.3 F 84 21 83/54 96 02/24/20 16:00 83 21 97 24/20 15:52 84 20 89/64 96 02/24/20 15:16 84 18 77/54 96 02/24/20 15:01 80 20 87/62 95 02/24/20 14:46 78 18 83/62 95 02/24/20 14:32 82 18 71/63 99 09/05/19 14:16 21 84/53 02 14:01 20 91/58 09/05/19 13:45 86 25 H 83/54 98 09/05/19 13:30 88 21 79/46 100 09/05/19 13:15 85 20 77/48 100 09/05/19 13:01 85 20 09/05/19 13:00 78 16 83/58 100 09/05/19 12:45 81 20 82/64 100 09/05/19 12:30 80 19 82/61 98 09/05/19 12:15 98.1 F 77 17 81/56 99 09/05/19 12:14 78 16 100 09/05/19 12:00 74 15 78/54 99 09/05/19 11:46 76 16 84/56 99 09/05/19 11:30 75 17 84/56 99 09/05/19 11:20 77 15 83/71 100 09/05/19 11:15 76 16 87/53 100 09/05/19 11:10 81 17 88/52 99 09/05/19 11:06 82 20 92/60 99 09/05/19 11:00 78 18 88/64 99 09/05/19 10:58 81 19 78/68 99 09/05/19 10:45 79 18 86/52 99 09/05/19 10:40 79 18 92/58 97 09/05/19 10:35 81 21 88/59 98 09/05/19 10:30 83 23 H 88/59 99 09/05/19 10:25 79 19 95/60 98 09/05/19 10:20 78 19 93/58 99 09/05/19 10:15 97.3 F 81 23 H 101/49 99 09/05/19 10:10 80 22 90/50 98 09/05/19 10:08 84 20 84/57 97 09/05/19 10:06 86 15 97 09/05/19 10:00 82 21 87/50 97 Intake and Output 09/05/1909/06/20 09/06/19 21:59 05:59 13:59 Intake Total 795 320 3 Output Total 3600 Balance -2805 320 3 Intake: IV 250 320 3 Sodium Chloride 0.9% 250 ml @ 3 20 mls/hr IV .[id number] [facility] Rx#: [id number] Neosynephrine/Vazculep 20 mg In 250 317 3 Dextrose 5% in Water 248 ml @ 0.5 MCG/KG/MIN 34.496 mls/hr IV Q12H [facility] Rx#:[id number] Oral 545 Output: Hemodialysis UF 3600 Other: Meal Dinner Percent of Meal Consumed 25% Stool Size Smear Small Stool Color Brown Brown Stool Consistency Loose Loose # of times incontinent of 1 Bowels Weight 198 lb 3.2 oz Intake & Output: Intake & Output 09/05/19 09/06/19 09/06/19 21:59 05:59 13:59 Intake Total 795 320 3 Output Total 3600 Balance -2805 320 3 Weight 198 lb 3.2 oz Intake: IV 250 320 3 Sodium Chloride 0.9% 250 ml @ 3 20 mls/hr IV .[id number] [facility] Rx#: [id number] Neosynephrine/Vazculep 20 mg In 250 317 3 Dextrose 5% in Water 248 ml @ 0.5 MCG/KG/MIN 34.496 mls/hr IV Q12H [facility] Rx#:[id number] Oral 545 Output: Hemodialysis UF 3600 Other: Meal Dinner Percent of Meal Consumed 25% Stool Size Smear Small Stool Color Brown Brown Stool Consistency Loose Loose # of times incontinent of 1 Bowels - General Appearance General appearance: well-developed, chronically ill EENT: ATNC Neck: JVD Cardiology: holosystolic murmur Gastrointestinal: hypoactive bowel sounds Neurologic: no focal deficit - Lab 09/06/19 06:33 09/06/19 06:33 Most recent lab results Calcium 8.1 mg/dl (8.6-10.4) L 09/06/19 06:33 Phosphorus 5.2 mg/dL (2.7-4.5) H 09/06/19 06:33 Magnesium 2.0 mg/dL (1.6-2.5) 09/06/19 06:33 Assessment and Plan (1) End stage renal disease Status: Chronic Comment: Has a clotted fistula. Have placed a temporary dav[address] ter. Had dialysis yesterday. Will do ultrafiltration today. She will get iv albumin. Will attempt to remove 5-6 liters of fluid. Multiple medical problems, management per hospitalist.
[2019-09-06] MEDS ORDERED: fentaNYL 12 MCG PATCH TD SCH (10:00)
[2019-09-06] MEDS: INSULIN GLARGINE, HUMAN 1 UNIT/0.01 ML SQ SCH (10:22)
[2019-09-06] MEDS: DOCUSATE SODIUM 100 MG CAPSULE PO SCH ×2 (10:36→21:57)
[2019-09-06] MEDS: HEPARIN 5,000 UNIT/ML VIAL SQ SCH ×2 (10:36→22:12)
[2019-09-06] MEDS: ASPIRIN 81 MG TAB.CHEW PO SCH (10:36)
[2019-09-06] MEDS ORDERED: IOPAMIDOL 100 ML BOTTLE IV ONE (12:23)
--- NOTE | 2019-09-06 13:50 | Cat Scan Report ---
CLINICAL INFORMATION: Abdominal pain. Diverticulosis. COMPARISON: 08/07/2019 TECHNIQUE: Following enteric contrast, 80 cc of Isovue-370 were injected intravenously, and 60 seconds later, 0.625 mm helical slices were obtained from the mid heart through the subtrochanteric regions. Following reconstruction, 2.5 mm sagittal, coronal and axial reformatted images were processed and reviewed at bone, lung and soft tissue windows. Five minutes later, 0.625 mm helical slices were obtained from the mid heart through the kidneys and viewed at soft tissue windows.The exam was performed using radiation dose optimization techniques including, but not limited to, automated exposure control, adjustment of the mA and/or kV according to patient size and use of iterative reconstruction technique. FINDINGS: Bilateral pleural effusions have increased and are now moderate resulting in compressive atelectasis both adjacent posterior lower lobes. Moderate cardiomegaly has increased and there is a new small pericardial effusion. Abdominal images show mild cirrhosis featuring decreased liver size with cortical irregularity and inhomogeneous attenuation. There are no focal lesions appreciated. Gallbladder is surgically absent. Intrahepatic and common bile ducts are normal caliber. Moderate atrophy of both kidneys is unchanged from the most recent CT one month ago. Both adrenal glands, spleen and pancreas are normal. The aorta is normal in diameter contains extremely heavy fibrofatty calcific plaque. There is a greater than 50% stenosis in the celiac artery and right common iliac arteries. There are also stenoses greater than 70% both renal artery origins. A catheter is seen within the right common femoral vein extending into the external iliac vein ostensibly for dialysis. Moderate ascites, throughout the abdomen and pelvis, has increased. Small amount of fluid extends into an umbilical hernia. Stomach, small and large bowel are grossly normal. 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 This region is poorly visualized on today's exam.. Bone windows show moderate bilateral sacroiliitis. IMPRESSION: 1. Moderate ascites throughout the abdomen and pelvis modestly increasing from CT one month prior. There is also moderate subcutaneous edema throughout the abdominal and lower chest wall. 2. Severe bilateral renal atrophy. 3. Moderate cirrhosis. 4, greater than 50% stenoses of the celiac, right common iliac artery origin and both proximal renal artery origins. There is a catheter in the right common femoral vein ostensibly for dialysis. 5. Moderate bilateral pleural effusions resulting in compressive subsegmental atelectasis posterior lower lobes increasing 6. Moderate cardiomegaly stable. There is a new small pericardial effusion. Interpreted and Authenticated by: Randall Esteban 09/06/19
[2019-09-06] MEDS: MIDODRINE 5 MG TABLET PO PRN (15:18)
[2019-09-06] MEDS: MELATONIN 3 MG TABLET PO SCH (21:57)
[2019-09-06] MEDS: FAMOTIDINE/PF 20 MG/2 ML VIAL IV SCH (22:09)
[2019-09-06] MEDS: CEFEPIME 1 GM VIAL IV SCH (22:15)
[2019-09-06] MEDS ORDERED: PHENYLEPHRINE 10 MG/ML VIAL ONE (23:35)
[2019-09-07] MEDS: PHENYLEPHRINE IV SCH ×4 (00:18→14:19)
[2019-09-07] MEDS: DEXTROSE 5% IV SCH ×4 (00:18→14:19)
[2019-09-07] MEDS: WATER IV SCH ×4 (00:18→14:19)
[2019-09-07] MEDS: 0.9 % SODIUM CHLORIDE 250 ML IV SCH ×2 (01:18→10:01)
[2019-09-07] MEDS: ONDANSETRON 4 MG/2 ML VIAL IV PRN (02:12)
[2019-09-07] MEDS ORDERED: PHENYLEPHRINE 10 MG/ML VIAL ONE (04:52)
[2019-09-07] MEDS: ALBUTEROL SULFATE 2.5 MG/3 ML NEBULIZER NEB SCH ×3 (04:55→12:13)
[2019-09-07] MEDS: 0.9 % SODIUM CHLORIDE 10 ML SYRINGE IV SCH ×2 (05:54→15:39)
[2019-09-07 06:34] LABS: Basophils # (Auto) 0.05 K/mcL (0.00-0.30); Basophils % (Auto) 0.4 % (0.0-2.0); Eosinophils # (Auto) 0.05 K/mcL (0.00-0.70); Eosinophils % (Auto) 0.4 % (0.0-7.0); Granulocytes % (Auto) 80.8 % (38.0-78.0); Hematocrit 34.8 % (34.1-44.9); Hemoglobin 11.5 g/dL (11.2-15.7); Lymphocytes # (Auto) 1.23 K/mcL (1.50-4.80); Lymphocytes % (Auto) 10.8 % (15.5-49.0); Mean Cell Volume 93.8 fL (80.0-100.0); Mean Platelet Volume 9.5 fL (7.4-10.4); Monocytes # (Auto) 0.87 K/mcL (0.10-0.90); Monocytes % (Auto) 7.6 % (1.0-12.0); Platelet Count 359 K/mcL (140-440); RBC 3.71 M/mcL (3.59-5.38); Red Cell Distribution Width 14.6 % (11.5-14.5); WBC 11.4 K/mcL (4.50-11.00)
[2019-09-07 07:01] LABS: ALT/SGPT 18 U/l (0-40); AST/SGOT 48 U/l (0-37); Albumin 2.8 gm/dL (3.2-5.2); Albumin/Globulin Ratio 0.9 (1.0-2.3); Alkaline Phosphatase 221 U/L (39-117); Bilirubin,Total 1.4 mg/dL (0.0-1.0); Blood Urea Nitrogen 46 mg/dl (8-23); Calcium 8.5 mg/dl (8.6-10.4); Carbon Dioxide 18 mmol/L (22-30); Globulin 3.2 gm/dL (2.2-3.7); Glomerular Filtration Rate 8; Glucose 113 mg/dL (70-105); Lactate Dehydrogenase 240 U/L (94-250); Triglycerides 72 mg/dl (<150); Uric Acid 5.3 mg/dL (2.5-8.0)
[2019-09-07 07:05] LABS: INR 1.4 (0.9-1.1); Prothrombin Time 17.9 sec (11.9-14.5)
[2019-09-07 07:27] LABS: Bilirubin,Direct 0.9 mg/dL (0.0-0.3); Chloride 86 mmol/L (96-108); Phosphorous 6.4 mg/dL (2.7-4.5)
[2019-09-07] MEDS: LEVOTHYROXINE 75 MCG TABLET PO SCH (07:40)
--- NOTE | 2019-09-07 07:51 | Internal Med Progress Note ---
Medical - PN: Subj Patient information: Note initiated : 09/07/19 at 7:46 am Service Date, if different from initiated Date: [] Patient: Shannon Alarcon 79 y/o F admitted on 09/04/19 for chest pain. Chief Complaint: [] Interval history: Ms. Alarcon is a 79 year old F End-stage renal disease patient and her heart failure patient who presents to the ED with chest pain. She states the pain started about 1:00 today and has been constant. She says it feeling of big ball on her chest essentially not really radiating but does complain of worsening pain in her shoulders which she has chronic pain as well as worsening pain in her back. The pain is been constant since then nothing has made it better. Things that make it worse are taking a deep breath. In the ED her troponin was elevated although it is chronically elevated, last time he was 0.12 it is 0.15 this time. EKG looks the same as her prior EKGs. The pain started while she was sitting in her wheelchair. She has had increased shortness of breath since then because of the pain. On examining her it is pain is reproducible on palpation. Patient states that she would not want to be transferred even if it was cardiac or for any other reason.. She does not want any procedures and if this was her heart and she was deteriorating she would want to be made comfortable. She did go to [facility] last week for a paracentesis after her dialysis. She did have shortness of breath at that time and the paracentesis did improve shortness of breath. In the ED she was a found a pulmonary congestion she did have a mild leukocytosis but denies fevers. She has a chronic cough but she feels there is no change in her cough. She has chronic edema in her legs and may be a little worse than usual. She has some nausea. She does not urinate at all. She is on dialysis Thursday. Her sodium was found to be low at 120 she had a mild elevated potassium level. Lactate mildly elevated Chest x-ray pulmonary congestion could not rule out underlying infiltrate. Case was discussed with information receptionist who felt that we could do dialysis first thing in the morning. She has a DNR CODE STATUS and I discussed with her her case. Multiple recent hospitalizations her current state and her previously mentioned directives. Patient does not want any heroic measures or procedures. He is okay with antibiotics and IV fluids if needed. She again states she does not want to be transferred anywhere. If she declines she wants to be made comfort care only. 09/05 Patient did respond to GI cocktail last night, well. Patient has no chest pain this morning. Occasional cough and some shortness of breath but minimal. Denies any other pains or complaints. 09/06 Patient was off vasopressors but had to go back on this morning. And will definitely need while undergoing hemodialysis. Reports some abdominal pain. Pain records from acute need for July admission. Has baseline shortness of breath. Denies cough. Had some nausea. Had some diarrhea which is chronic in nature. 09/07 Still on vasopressors, Ziyad-Synephrine. Slept okay. Denies any coughing. Has chronic shortness of breath at baseline. has some nausea Edema in her legs is improved. Blood cultures negative thus far. Family meeting today. Review of Systems: denies headache/fever/chills/vomiting/chest pain. Otherwise see above. - Constitutional Vitals: Vital Signs Temp Pulse Resp BP Pulse Ox 97.7 F 98 H 19 91/65 96 09/07/19 00:00 09/07/19 00:00 09/07/19 00:00 09/07/19 00:00 09/07/19 00:00 Period Temp Pulse Resp BP Sys/Fonseca Pulse Ox Last 24 Hr 97.4 F-98.9 F 84-110 13-24 66-103/41-76 92-100 Intake and Output 09/06/19 09/07/19 09/07/19 21:59 05:59 13:59 Intake Total 210 500 Output Total 5200 Balance -4990 500 Weight 86.319 kg Intake & Output: Intake & Output 09/06/19 09/07/19 09/07/19 21:59 05:59 13:59 Intake Total 210 500 Output Total 5200 Balance -4990 500 Weight 86.319 kg Intake: IV 210 500 Neosynephrine/Vazculep 20 mg In 210 500 Dextrose 5% in Water 248 ml @ 0.5 MCG/KG/MIN 34.496 mls/hr IV Q12H [facility] Rx#:[id number] Output: Hemodialysis UF 5200 Other: Stool Size Moderate Stool Color Brown Stool Consistency Liquid Watery # of times incontinent of 1 Bowels Exam: General: Alert, Awake, No acute Distress, obese Eyes/N/T: EOMI Head/Neck: neck supple, CV: tachy but regular, 2/6 SM, Pulm: diminished b/l, no wheezing Abd: soft, nontender, +BS x4 Ext: no clubbing/cyanosis, 2-3+ b/l LE, venous stasis changes bilaterally with dermatitis on the left Neuro: Alert, no focal deficits, moves all extremities weakly, Skin: warm/dry Medical - PN: Obj Da - Labs CBC & Chem 7: 09/07/19 05:20 09/07/19 05:20 Labs: Abnormal Lab Results 09/07/19 09/07/19 09/07/19 05:20 05:20 05:20 WBC 11.4 H RBC Hgb Hct RDW 14.6 H Gran % 80.8 H Lymph % (Auto) 10.8 L Gran # 9.23 H Lymph # (Auto) 1.23 L Seg Neutrophils % Lymphocytes % RBC Morphology Polychromasia Anisocytosis Ovalocytes PT 17.9 H INR 1.4 H VBG Lactic Acid Sodium 123 L Potassium Chloride 86 L Carbon Dioxide 18 L Anion Gap 19.0 H BUN 46 H Creatinine 4.9 H Glucose 113 H Calcium 8.5 L Phosphorus 6.4 H* Total Bilirubin 1.4 H Direct Bilirubin 0.9 H GGT 107 H AST 48 H Alkaline Phosphatase 221 H Myoglobin Troponin T NT-Pro-B Natriuret Pep Total Protein Albumin 2.8 L Globulin Albumin/Globulin Ratio 0.9 L 09/06/19 09/06/19 09/05/19 06:33 06:33 05:50 WBC RBC 3.27 L Hgb 10.3 L Hct 30.4 L RDW Gran % Lymph % (Auto) Gran # Lymph # (Auto) Seg Neutrophils % 89 H Lymphocytes % 5 L RBC Morphology Abnorm A Polychromasia Few A Anisocytosis Few A Ovalocytes PT INR VBG Lactic Acid 2.2 H Sodium 126 L Potassium Chloride 91 L Carbon Dioxide 21 L Anion Gap BUN 41 H Creatinine 4.3 H Glucose 107 H Calcium 8.1 L Phosphorus 5.2 H Total Bilirubin Direct Bilirubin 0.5 H GGT 89 H AST Alkaline Phosphatase 169 H Myoglobin Troponin T NT-Pro-B Natriuret Pep Total Protein 5.4 L Albumin 2.2 L Globulin Albumin/Globulin Ratio 0.7 L 09/05/19 09/05/19 09/05/19 05:50 05:50 05:50 WBC 17.5 H RBC 3.51 L Hgb 10.9 L Hct 32.4 L RDW Gran % Lymph % (Auto) Gran # Lymph # (Auto) Seg Neutrophils % 89 H Lymphocytes % 4 L RBC Morphology Abnorm A Polychromasia Few A Anisocytosis Few A Ovalocytes Few A PT INR VBG Lactic Acid Sodium 123 L Potassium 5.8 H Chloride 87 L Carbon Dioxide 21 L Anion Gap BUN 48 H Creatinine 5.1 H* Glucose Calcium 8.5 L Phosphorus 5.2 H Total Bilirubin Direct Bilirubin 0.6 H GGT 103 H AST Alkaline Phosphatase 189 H Myoglobin Troponin T 0.14 H* NT-Pro-B Natriuret Pep Total Protein 5.8 L Albumin 2.4 L Globulin Albumin/Globulin Ratio 0.7 L 09/04/19 09/04/19 09/04/19 19:50 17:35 17:35 WBC RBC Hgb Hct RDW Gran % Lymph % (Auto) Gran # Lymph # (Auto) Seg Neutrophils % Lymphocytes % 12 L RBC Morphology Polychromasia Anisocytosis Ovalocytes PT INR VBG Lactic Acid 2.5 H Sodium Potassium Chloride Carbon Dioxide Anion Gap BUN Creatinine Glucose Calcium Phosphorus Total Bilirubin Direct Bilirubin GGT AST Alkaline Phosphatase Myoglobin Troponin T NT-Pro-B Natriuret Pep 64796.0 H Total Protein Albumin Globulin Albumin/Globulin Ratio 09/04/19 09/04/19 09/04/19 17:35 17:35 17:35 WBC 13.9 H RBC Hgb Hct RDW 14.6 H Gran % 84.6 H Lymph % (Auto) 9.7 L Gran # 11.79 H Lymph # (Auto) 1.35 L Seg Neutrophils % Lymphocytes % RBC Morphology Polychromasia Anisocytosis Ovalocytes PT INR VBG Lactic Acid Sodium 120 L Potassium 5.5 H Chloride 82 L Carbon Dioxide Anion Gap BUN 44 H Creatinine 4.9 H Glucose 172 H Calcium Phosphorus Total Bilirubin 1.1 H Direct Bilirubin GGT AST Alkaline Phosphatase 254 H Myoglobin 119 H Troponin T 0.15 H* NT-Pro-B Natriuret Pep Total Protein Albumin Globulin 4.0 H Albumin/Globulin Ratio 0.8 L Meds: Medications Albuterol Sulfate (Ventolin) 2.5 mg NEB Q4HRT [facility] Last Admin: 09/07/19 07:29 Dose: Not Given Documented by: Aspirin (Aspirin) 81 mg PO DAILY [facility] Last Admin: 09/06/19 10:36 Dose: 81 mg Documented by: Belladonna/Phenobarbital (Gi Cocktail) 1 dose PO Q4HP PRN PRN Reason: Dyspepsia Bisacodyl (Dulcolax) 10 mg PO DAILY PRN PRN Reason: Constipation Bisacodyl (Dulcolax) 10 mg VT DAILY PRN PRN Reason: Constipation Cefepime HCl (Maxipime) 1 gm IV Q24H [facility]; Protocol Last Admin: 09/06/19 22:15 Dose: 1 gm Documented by: Digoxin (Lanoxin) 125 mcg PO MoWeFr@1400 [facility] Last Admin: 09/05/19 15:46 Dose: 125 mcg Documented by: Diphenhydramine HCl (Benadryl) 25 mg PO HSP PRN PRN Reason: Insomnia Docusate Sodium (Colace) 100 mg PO BID [facility] Last Admin: 09/06/19 21:57 Dose: Not Given Documented by: Famotidine (Pepcid) 20 mg IV HS [facility] Last Admin: 09/06/19 22:09 Dose: 20 mg Documented by: Fentanyl (Duragesic) 12 mcg TD Q72H [facility] Last Admin: 09/06/19 10:26 Dose: 12 mcg Documented by: Heparin Sodium (Porcine) (Heparin) 5,000 unit SQ Q12 [facility] Last Admin: 09/06/19 22:12 Dose: 5,000 unit Documented by: Hydromorphone HCl (Dilaudid) 0 mg IV Q2HP PRN PRN Reason: PAIN LEVEL > 6 Last Admin: 09/06/19 23:25 Dose: 0.25 mg Documented by: Sodium Chloride (Sodium Chloride 0.9%) 250 mls @ 20 mls/hr IV .[id number] [facility] Last Admin: 09/07/19 01:18 Dose: Not Given Documented by: Phenylephrine HCl 20 mg/ (Dextrose) 250 mls @ 34.496 mls/hr IV Q12H [facility]; Protocol Last Admin: 09/07/19 04:57 Dose: 0.87 mcg/kg/min, 60 mls/hr Documented by: Insulin Glargine (Lantus) 5 unit SQ DAILY [facility] Last Admin: 09/06/19 10:22 Dose: 5 units Documented by: Lactulose (Cephulac) 20 gm PO BIDP PRN PRN Reason: Constipation Levothyroxine Sodium (Synthroid) 75 mcg PO QAMAC [facility] Last Admin: 09/07/19 07:40 Dose: 75 mcg Documented by: Melatonin (Melatonin 3mg Tablet) 3 mg PO QHS [facility] Last Admin: 09/06/19 21:57 Dose: Not Given Documented by: Metoprolol Tartrate (Lopressor) 5 mg IV Q2HP PRN PRN Reason: Tachyarrhythmias HR>110 Last Admin: 09/07/19 01:21 Dose: 5 mg Documented by: Midodrine (Midodrine Hcl) 10 mg PO TID@0800,1200,1700 [facility] Last Admin: 09/06/19 18:09 Dose: 10 mg Documented by: Midodrine (Midodrine Hcl) 10 mg PO Q2HP PRN PRN Reason: Hypotension Last Admin: 09/06/19 15:18 Dose: 10 mg Documented by: Nitroglycerin (Nitrostat) 0.4 mg SL Q5M PRN PRN Reason: Chest Pain Ondansetron HCl (Zofran) 4 mg IV Q4-6HP PRN PRN Reason: Nausea And Vomiting Last Admin: 09/07/19 02:12 Dose: 4 mg Documented by: Polyethylene Glycol (Miralax) 17 gm PO QDP PRN PRN Reason: Constipation Senna (Senokot) 1 tab PO HSP PRN PRN Reason: Constipation Sodium Biphosphate/Sodium Phosphate (Fleets Adult) 1 dose VT DAILYP PRN PRN Reason: Constipation Sodium Chloride (Saline Flush) 10 ml IV Q8 [facility] Last Admin: 09/07/19 05:54 Dose: 10 ml Documented by: Medical - PN: A/P - Time Spent With Patient Total time spent is greater than 50% in coordination of care (as documented) at patient's floor/unit and/or counseling patient: - Narrative A/P Narrative: A: *Acute on chronic systolic CHF: -echo with EF 20-25% (30% in 2017), severe LV dilation and diastolic dysfxn, mod dilated RV, b/l atrial dilation, mod MR/TR, mildly reduced RV systolic fxn -per reports pt declined ICD/BiV pacer in past -occasionally wears O2 at home *Anasarca/volume overload: *Hypotension acute on chronic: pt sbp runs 80-90's per , she is on midodrine 5 tid at home -still requiring phenylephrine with intermittent cessation *Chest pain: appears MSK vs GI as is reproducible with palpation and worsens with deep breathing, but she did respond well to GI cocktail. She does have risk factor and has elevated troponin although her troponin is chronically elevated and level on repeat. EKG similar to previous with chronic LBBB. -Patient would not want to be transferred anywhere and would not want any intervention if cardiac related *ESRD (MWF): Follows with Dr. Loco -yaya at baseline -Fistula clotted off and has temp cath in femoral *Cirrhosis w/recurrent Ascites: suspected to be related to ESRD vs Cardiogenic and gets regular paracentesis *Hypervolemic hyponatremia: *Hyperkalemia: improved *Leukocytosis: infectious vs reactive. Infectious source could be Pulm vs cellulitis LLE although this presents more like venous stasis but could also be source of entry for skin pako. 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 No colon cancer on endoscopy *PAF: on digoxin. -not on anticoagulation. Recent GI bleed attributed to internal hemorrhoids at [facility] in July; anticoagulation was stopped but told she could restart ASA 81mg daily. *Chronic LBBB: *DM: on levemir *Hypothyroidism: *History of colovaginal fistula: as been followed by surgery outpt, deemed extremely high risk for surgery *Obesity: *Goals of care: Patient does not want aggressive measures and if she declines wants to be made comfort care only -pt with significant comorbidities and significant decline over the last 6 months. -Prognosis quite guarded P: -Dr. Loco for HD and electrolyte derangements -Cefepime, pending BC -wean vasopressors as able -home basal insulin and SSI -cont Dig, prn lopressor -increased midodrine to 10mg tid -prn gi cocktail -pt/ot -hospice eval, continue goals of discussion -family discussion today -ppx: heparin Medical - PN: Qual - VTE Deep Vein Thrombosis/Pulmonary Embolism Present on Admission: No
[2019-09-07] MEDS: HEPARIN 5,000 UNIT/ML VIAL SQ SCH (08:15)
[2019-09-07] MEDS: ASPIRIN 81 MG TAB.CHEW PO SCH (08:15)
[2019-09-07] MEDS: MIDODRINE 5 MG TABLET PO SCH ×2 (08:16→11:29)
[2019-09-07] MEDS: INSULIN GLARGINE, HUMAN 1 UNIT/0.01 ML SQ SCH (08:16)
[2019-09-07] MEDS ORDERED: ALBUMIN HUMAN 25 GM/100 ML BAG IV ONE (08:40)
--- NOTE | 2019-09-07 08:44 | Nephrology Progress Note ---
Subjective Patient information: Note initiated : 09/07/19 at 8:41 am Service Date, if different from initiated Date: [] Patient: Shannon Alarcon 79 y/o F admitted on 09/04/19 for chest pain. Chief Complaint: [] She reports feeling better. Not hungry. No shortness of breath. Objective - Vital Signs Vital signs: Vital Signs Temp Pulse Pulse Resp BP Pulse Ox 09/07/19 07:49 21 09/07/19 07:04 22 85/71 09/07/19 07:01 95 H 18 78/69 92 09/07/19 06:57 90 20 86/54 98 09/07/19 06:06 84 22 86/54 96 09/07/19 06:03 92 H 25 H 86/46 100 09/07/19 05:03 98 H 21 82/65 97 09/07/19 05:01 97 H 18 79/54 96 09/07/19 04:01 97.6 F 96 H 20 87/73 96 09/07/19 03:01 85 20 83/61 97 09/07/19 02:00 86 18 76/62 95 09/07/19 01:06 23 H 93/54 09/07/19 01:05 22 87/34 09/07/19 01:04 23 H 120/108 09/07/19 01:01 26 L 23 H 81/41 83 L 09/07/19 00:05 95 H 97 09/07/19 00:00 97.7 F 98 H 19 91/65 96 09/06/19 23:00 100 H 16 89/53 95 09/06/19 22:00 99 H 17 81/61 97 09/06/19 21:00 92 H 13 78/58 99 09/06/19 20:02 97.4 F 96 H 17 72/61 97 09/06/19 19:31 95 H 16 88/65 100 09/06/19 19:01 110 H 16 75/55 100 09/06/19 18:50 99 H 18 09/06/19 18:30 92 H 18 77/59 99 09/06/19 18:00 95 H 19 78/62 95 09/06/19 17:50 88 21 80/59 96 09/06/19 17:04 94 H 16 84/50 100 09/06/19 17:03 92 H 16 75/55 99 09/06/19 17:01 93 H 18 66/41 97 09/06/19 16:45 88 16 78/55 96 09/06/19 16:42 87 14 74/44 99 09/06/19 16:39 85 16 72/56 98 09/06/19 16:35 86 72/56 09/06/19 16:31 84 15 74/55 99 09/06/19 16:30 85 74/55 09/06/19 16:14 85 77/50 09/06/19 16:02 98 F 89 22 81/55 97 09/06/19 16:00 91 H 23 H 100 09/06/19 15:56 88 23 H 94/76 100 09/06/19 15:55 89 94/76 09/06/19 15:31 88 15 81/55 97 09/06/19 15:17 87 16 88/62 97 09/06/19 15:15 85 88/62 09/06/19 15:03 99 H 16 84/49 98 09/06/19 15:01 100 H 84/49 09/06/19 14:46 86 16 89/63 97 09/06/19 14:33 89 79/54 09/06/19 14:24 100 H 87/54 09/06/19 14:16 91 H 15 87/54 98 09/06/19 14:03 101 H 15 90/60 99 09/06/19 14:01 102 H 90/60 09/06/19 13:46 89 16 82/52 96 09/06/19 13:35 98.1 F 98 H 81/64 09/06/19 13:18 92 H 14 94/71 97 09/06/19 13:01 95 H 15 91/69 96 09/06/19 12:32 98 H 18 93 09/06/19 12:30 97 09/06/19 12:26 98.9 F 96 H 103/70 93 09/06/19 11:01 20 98/66 92 09/06/19 10:01 24 H 85/51 09/06/19 09:38 21 78/52 09/06/19 09:03 93 H 17 92/52 97 09/06/19 08:51 91 H 16 85/60 98 Intake and Output 09/06/19 09/07/1920 21:59 05:59 13:59 Intake Total 210 500 Output Total 5200 Balance -4990 500 Intake: IV 210 500 Neosynephrine/Vazculep 20 mg In 210 500 Dextrose 5% in Water 248 ml @ 0.5 MCG/KG/MIN 34.496 mls/hr IV Q12H [facility] Rx#:[id number] Output: Hemodialysis UF 5200 Other: Stool Size Moderate Moderate Stool Color Brown Brown Stool Consistency Liquid Liquid Watery # of times incontinent of 1 1 Bowels Weight 190 lb 4.8 oz Intake & Output: Intake & Output 09/06/19 09/07/19 09/07/19 21:59 05:59 13:59 Intake Total 210 500 Output Total 5200 Balance -4990 500 Weight 190 lb 4.8 oz Intake: IV 210 500 Neosynephrine/Vazculep 20 mg In 210 500 Dextrose 5% in Water 248 ml @ 0.5 MCG/KG/MIN 34.496 mls/hr IV Q12H [facility] Rx#:[id number] Output: Hemodialysis UF 5200 Other: Stool Size Moderate Moderate Stool Color Brown Brown Stool Consistency Liquid Liquid Watery # of times incontinent of 1 1 Bowels - General Appearance General appearance: chronically ill EENT: ATNC Neck: no JVD Cardiology: holosystolic murmur Gastrointestinal: hypoactive bowel sounds Neurologic: no focal deficit - Lab 09/07/19 05:20 09/07/19 05:20 Most recent lab results Calcium 8.5 mg/dl (8.6-10.4) L 09/07/19 05:20 Phosphorus 6.4 mg/dL (2.7-4.5) H* 09/07/19 05:20 Magnesium 2.1 mg/dL (1.6-2.5) 09/07/19 05:20 Assessment and Plan (1) End stage renal disease Status: Chronic Comment: Has a clotted fistula. Have placed a temporary catheter. Had dialysis two days in a row and had 7 liters of fluid removed. Will have dialysis today. She will get iv albumin. Will attempt to remove 5 liters of fluid.
[2019-09-07] MEDS: DOCUSATE SODIUM 100 MG CAPSULE PO SCH (10:00)
[2019-09-07] MEDS ORDERED: WATER IV SCH (14:30)
[2019-09-07] MEDS ORDERED: PHENYLEPHRINE IV SCH (14:30)
[2019-09-07] MEDS ORDERED: DEXTROSE 5% IV SCH (14:30)
[2019-09-07] MEDS: DIGOXIN 125 MCG TABLET PO SCH (15:38)
[2019-09-07] MEDS: HYDROmorphone 2 MG/ML VIAL IV PRN ×2 (15:38→18:39)
[2019-09-07] MEDS ORDERED: LORazepam 2 MG/ML VIAL IV PRN (16:06)
[2019-09-07] MEDS ORDERED: LACTOPEROXI/GLUC OXID/POT THIO 1 EACH GEL..EA. TOPICAL PRN (16:06)
[2019-09-08] MEDS: HYDROmorphone 2 MG/ML VIAL IV PRN ×6 (00:50→23:55)
[2019-09-08] MEDS: 0.9 % SODIUM CHLORIDE 10 ML SYRINGE IV SCH ×4 (02:03→23:55)
--- NOTE | 2019-09-08 07:23 | Internal Med Progress Note ---
Medical - PN: Subj Patient information: Note initiated : 09/08/19 at 7:22 am Service Date, if different from initiated Date: [] Patient: Shannon Alarcon 79 y/o F admitted on 09/04/19 for chest pain. Chief Complaint: [] Interval history: Ms. Alarcon is a 79 year old F End-stage renal disease patient and her heart failure patient who presents to the ED with chest pain. She states the pain started about 1:00 today and has been constant. She says it feeling of big ball on her chest essentially not really radiating but does complain of worsening pain in her shoulders which she has chronic pain as well as worsening pain in her back. The pain is been constant since then nothing has made it better. Things that make it worse are taking a deep breath. In the ED her troponin was elevated although it is chronically elevated, last time he was 0.12 it is 0.15 this time. EKG looks the same as her prior EKGs. The pain started while she was sitting in her wheelchair. She has had increased shortness of breath since then because of the pain. On examining her it is pain is reproducible on palpation. Patient states that she would not want to be transferred even if it was cardiac or for any other reason.. She does not want any procedures and if this was her heart and she was deteriorating she would want to be made comfortable. She did go to [facility] last week for a paracentesis after her dialysis. She did have shortness of breath at that time and the paracentesis did improve shortness of breath. In the ED she was a found a pulmonary congestion she did have a mild leukocytosis but denies fevers. She has a chronic cough but she feels there is no change in her cough. She has chronic edema in her legs and may be a little worse than usual. She has some nausea. She does not urinate at all. She is on dialysis Thursday. Her sodium was found to be low at 120 she had a mild elevated potassium level. Lactate mildly elevated Chest x-ray pulmonary congestion could not rule out underlying infiltrate. Case was discussed with renal medicine specialist who felt that we could do dialysis first thing in the morning. She has a DNR CODE STATUS and I discussed with her her case. Multiple recent hospitalizations her current state and her previously mentioned directives. Patient does not want any heroic measures or procedures. He is okay with antibiotics and IV fluids if needed. She again states she does not want to be transferred anywhere. If she declines she wants to be made comfort care only. 09/05 Patient did respond to GI cocktail last night, well. Patient has no chest pain this morning. Occasional cough and some shortness of breath but minimal. Denies any other pains or complaints. 09/06 Patient was off vasopressors but had to go back on this morning. And will definitely need while undergoing hemodialysis. Reports some abdominal pain. Pain records from acute need for July admission. Has baseline shortness of breath. Denies cough. Had some nausea. Had some diarrhea which is chronic in nature. 09/07 Still on vasopressors, Ziyad-Synephrine. Slept okay. Denies any coughing. Has chronic shortness of breath at baseline. has some nausea Edema in her legs is improved. Blood cultures negative thus far. Family meeting today. I had a long discussion with the this morning but her current condition and and discussed the idea of continuing current therapy or transitioning if needed to a comfort focus. As she is still requiring vasopressors not shown any improvement. Family then had a discussion with case management nurse later on and including with the patient the patient decided to transition over to comfort care focus only. 09/08 Patient sitting up in wheelchair with family in room. Seems to be in good spirits. No complaints at this time. Per nurse last blood pressure was 70 systolic, but that is true and imagine that she will start to have some decline at some point soon. If not she may continue for some time as she just recently had dialysis. Review of Systems: denies headache/fever/chills/vomiting/chest pain. Otherwise see above. - Constitutional Vitals: Vital Signs Temp Pulse Resp BP Pulse Ox 96.8 F L 80 19 74/46 93 09/07/19 15:41 09/07/19 15:41 09/07/19 17:00 09/07/19 16:59 09/07/19 15:35 Period Temp Pulse Resp BP Sys/Fonseca Pulse Ox Last 24 Hr 96.8 F-98.6 F 79-113 14-28 55-148/35-124 88-100 Intake and Output 09/07/19 09/08/19 09/08/19 21:59 05:59 13:59 Output Total 3800 Balance -3800 Intake & Output: Intake & Output 09/07/19 09/08/19 09/08/19 21:59 05:59 13:59 Output Total 3800 Balance -3800 Output: Hemodialysis UF 3800 Other: Stool Size Moderate Stool Color Brown Stool Consistency Normal for Patient Liquid # of times incontinent of 1 Bowels Exam: General: Alert, Awake, No acute Distress, obese Eyes/N/T: EOMI Head/Neck: neck supple, CV: regular, 2/6 SM, Pulm: diminished b/l with right base rales mild, no wheezing Abd: soft, nontender, +BS x4 Ext: no clubbing/cyanosis, 2-3+ b/l LE, venous stasis changes bilaterally with dermatitis on the left Neuro: Alert, no focal deficits, moves all extremities weakly, Skin: warm/dry Medical - PN: Obj Da - Labs CBC & Chem 7: 09/07/19 05:20 09/07/19 05:20 Labs: Abnormal Lab Results 09/07/19 09/07/19 09/07/19 05:20 05:20 05:20 WBC 11.4 H RBC Hgb Hct RDW 14.6 H Gran % 80.8 H Lymph % (Auto) 10.8 L Gran # 9.23 H Lymph # (Auto) 1.23 L Seg Neutrophils % Lymphocytes % RBC Morphology Polychromasia Anisocytosis Ovalocytes PT 17.9 H INR 1.4 H Sodium 123 L Potassium Chloride 86 L Carbon Dioxide 18 L Anion Gap 19.0 H BUN 46 H Creatinine 4.9 H Glucose 113 H Calcium 8.5 L Phosphorus 6.4 H* Total Bilirubin 1.4 H Direct Bilirubin 0.9 H GGT 107 H AST 48 H Alkaline Phosphatase 221 H Total Protein Albumin 2.8 L Albumin/Globulin Ratio 0.9 L 09/06/19 09/06/19 09/05/19 06:33 06:33 05:50 WBC RBC 3.27 L Hgb 10.3 L Hct 30.4 L RDW Gran % Lymph % (Auto) Gran # Lymph # (Auto) Seg Neutrophils % 89 H Lymphocytes % 5 L RBC Morphology Abnorm A Polychromasia Few A Anisocytosis Few A Ovalocytes PT INR Sodium 126 L 123 L Potassium 5.8 H Chloride 91 L 87 L Carbon Dioxide 21 L 21 L Anion Gap BUN 41 H 48 H Creatinine 4.3 H 5.1 H* Glucose 107 H Calcium 8.1 L 8.5 L Phosphorus 5.2 H 5.2 H Total Bilirubin Direct Bilirubin 0.5 H 0.6 H GGT 89 H 103 H AST Alkaline Phosphatase 169 H 189 H Total Protein 5.4 L 5.8 L Albumin 2.2 L 2.4 L Albumin/Globulin Ratio 0.7 L 0.7 L 09/05/19 05:50 WBC RBC Hgb Hct RDW Gran % Lymph % (Auto) Gran # Lymph # (Auto) Seg Neutrophils % 89 H Lymphocytes % 4 L RBC Morphology Abnorm A Polychromasia Few A Anisocytosis Few A Ovalocytes Few A PT INR Sodium Potassium Chloride Carbon Dioxide Anion Gap BUN Creatinine Glucose Calcium Phosphorus Total Bilirubin Direct Bilirubin GGT AST Alkaline Phosphatase Total Protein Albumin Albumin/Globulin Ratio Meds: Medications Glucose Oxid/Lactoperoxid/Muramidas (Biotene) 1 each TOPICAL PRN PRN PRN Reason: Dry Mouth Hydromorphone HCl (Dilaudid) 0 mg IV Q2HP PRN PRN Reason: Pain Last Admin: 09/08/19 05:55 Dose: 0.5 mg Documented by: Lorazepam (Ativan) 0 mg IV Q1HP PRN; Protocol PRN Reason: ANXIETY/SEDATION Morphine Sulfate (Morphine) 4 mg NEB Q4HP PRN PRN Reason: Shortness Of Breath Sodium Chloride (Saline Flush) 10 ml IV Q8 ADELINA Last Admin: 09/08/19 06:50 Dose: Not Given Documented by: Medical - PN: A/P - Time Spent With Patient Total time spent is greater than 50% in coordination of care (as documented) at patient's floor/unit and/or counseling patient: - Narrative A/P Narrative: A: *Acute on chronic systolic CHF: -echo with EF 20-25% (30% in 2017), severe LV dilation and diastolic dysfxn, mod dilated RV, b/l atrial dilation, mod MR/TR, mildly reduced RV systolic fxn -per reports pt declined ICD/BiV pacer in past -occasionally wears O2 at home *Anasarca/volume overload: *Hypotension acute on chronic: pt sbp runs 80-90's per , she is on midodrine 5 tid at home -still requiring phenylephrine with intermittent cessation *Chest pain: appears MSK vs GI as is reproducible with palpation and worsens with deep breathing, but she did respond well to GI cocktail. She does have risk factor and has elevated troponin although her troponin is chronically elevated and level on repeat. EKG similar to previous with chronic LBBB. -Patient would not want to be transferred anywhere and would not want any intervention if cardiac related *ESRD (MWF): Follows with Dr. Loco -yaya at baseline -Fistula clotted off and has temp cath in femoral *Cirrhosis w/recurrent Ascites: suspected to be related to ESRD vs Cardiogenic and gets regular paracentesis *Hypervolemic hyponatremia: *Hyperkalemia: improved *Leukocytosis: infectious vs reactive. Infectious source could be Pulm vs cellulitis LLE although this presents more like venous stasis but could also be source of entry for skin pako. 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 No colon cancer on endoscopy *PAF: on digoxin. -not on anticoagulation. Recent GI bleed attributed to internal hemorrhoids at [place] in July; anticoagulation was stopped but told she could restart ASA 81mg daily. *Chronic LBBB: *DM: on levemir *Hypothyroidism: *History of colovaginal fistula: as been followed by surgery outpt, deemed extremely high risk for surgery *Obesity: *Goals of care: Patient does not want aggressive measures and if she declines wants to be made comfort care only -pt with significant comorbidities and significant decline over the last 6 months. -Prognosis quite guarded P: -transitioned to comfort care -pt and family support Medical - PN: Qual - VTE Deep Vein Thrombosis/Pulmonary Embolism Present on Admission: No
--- NOTE | 2019-09-08 09:34 | Nephrology Progress Note ---
Subjective Patient information: Note initiated : 09/08/19 at 9:32 am Service Date, if different from initiated Date: [] Patient: Shannon Alarcon 79 y/o F admitted on 09/04/19 for chest pain. Chief Complaint: [] She is in good spirits. Not hurting or short of breath. Objective - Vital Signs Vital signs: Vital Signs Temp Pulse Pulse Resp BP Pulse Ox 09/07/19 17:00 19 09/07/19 16:59 20 74/46 09/07/19 16:24 18 147/119 09/07/19 16:01 19 09/07/19 15:45 17 87/56 09/07/19 15:41 96.8 F L 80 83/65 09/07/19 15:37 16 83/65 09/07/19 15:35 79 18 55/35 93 09/07/19 15:31 84 66/40 09/07/19 15:30 86 20 66/40 92 09/07/19 15:20 84 22 93/70 88 L 09/07/19 15:18 84 93/70 09/07/19 15:00 88 16 100/83 97 09/07/19 14:48 89 20 72/51 96 09/07/19 14:47 88 20 58/50 97 09/07/19 14:45 97 H 72/51 09/07/19 14:34 28 H 84/49 09/07/19 14:33 89 84/49 09/07/19 14:18 90 88/48 09/07/19 14:17 18 88/48 09/07/19 14:08 17 87/49 09/07/19 14:02 111 H 18 68/52 09/07/19 13:50 99 H 78/56 09/07/19 13:49 16 78/56 09/07/19 13:45 19 63/48 09/07/19 13:40 88 74/54 09/07/19 13:36 18 74/54 09/07/19 13:32 113 H 148/124 09/07/19 13:30 18 148/124 09/07/19 13:23 19 140/114 09/07/19 13:17 24 H 131/114 09/07/19 13:16 98 H 131/114 09/07/19 13:15 18 09/07/19 13:09 18 79/59 09/07/19 13:01 109 H 14 79/59 09/07/19 12:51 107 H 20 86/49 96 09/07/19 12:46 88 19 79/50 93 09/07/19 12:45 98.6 F 107 H 86/49 09/07/19 12:05 95 H 19 80/60 96 09/07/19 12:01 97 H 18 79/45 96 09/07/19 12:00 98.0 F 112 H 16 96 09/07/19 11:01 90 19 85/74 97 09/07/19 10:28 95 H 21 99 09/07/19 10:01 91 H 18 87/64 100 Intake and Output 09/07/19 09/08/19 09/08/19 21:59 05:59 13:59 Output Total 3800 Balance -3800 Output: Hemodialysis UF 3800 Other: Stool Size Moderate Stool Color Brown Stool Consistency Normal for Patient Liquid # of times incontinent of 1 Bowels Intake & Output: Intake & Output 09/07/19 09/08/19 09/08/19 21:59 05:59 13:59 Output Total 3800 Balance -3800 Output: Hemodialysis UF 3800 Other: Stool Size Moderate Stool Color Brown Stool Consistency Normal for Patient Liquid # of times incontinent of 1 Bowels - General Appearance General appearance: cachectic EENT: mucous membranes moist Neck: no JVD Respiratory: no kyphosis Cardiology: no murmurs Gastrointestinal: normoactive bowel sounds Neurologic: no focal deficit Musculoskeletal: no deformities - Lab 09/07/19 05:20 09/07/19 05:20 Most recent lab results Calcium 8.5 mg/dl (8.6-10.4) L 09/07/19 05:20 Phosphorus 6.4 mg/dL (2.7-4.5) H* 09/07/19 05:20 Magnesium 2.1 mg/dL (1.6-2.5) 09/07/19 05:20 Assessment and Plan (1) End stage renal disease Status: Chronic Comment: Has a clotted fistula. Have placed a temporary catheter. Had dialysis three days in a row and had 7 liters of fluid removed. Now opted to go comfortcare. Will have the femoral catheter removed.
[2019-09-09] MEDS: HYDROmorphone 2 MG/ML VIAL IV PRN ×2 (03:02→08:54)
[2019-09-09] MEDS: 0.9 % SODIUM CHLORIDE 10 ML SYRINGE IV SCH (06:37)
[2019-09-09] MEDS ORDERED: morphine 20 MG/ML ORAL.CONC SL PRN (09:05)
[2019-09-09] MEDS ORDERED: fentaNYL 50 MCG PATCH TOPICAL SCH (09:45)
[2019-09-09] MEDS ORDERED: LORazepam 1 MG TABLET SL PRN (09:46)
--- NOTE | 2019-09-09 10:24 | Nephrology Progress Note ---
Subjective Patient information: Note initiated : 09/09/19 at 10:22 am Service Date, if different from initiated Date: [] Patient: Shannon Alarcon 79 y/o F admitted on 09/04/19 for chest pain. Chief Complaint: [] Feels well. NO shortness of breath Objective - Vital Signs Vital signs: Intake and Output 09/08/19 09/09/19 09/09/19 21:59 05:59 13:59 Intake Total 90 Balance 90 Intake: Oral 90 Other: Meal egg salad sandwich Percent of Meal Consumed 75% Feeding Ability Assist with Tray Set Up Stool Size Smear Small Stool Color Brown Brown Stool Consistency Soft Liquid Loose # of times incontinent of 1 1 Bowels Weight 190 lb 4.8 oz Intake & Output: Intake & Output 09/08/19 09/09/19 09/09/19 21:59 05:59 13:59 Intake Total 90 Balance 90 Weight 190 lb 4.8 oz Intake: Oral 90 Other: Meal egg salad sandwich Percent of Meal Consumed 75% Feeding Ability Assist with Tray Set Up Stool Size Smear Small Stool Color Brown Brown Stool Consistency Soft Liquid Loose # of times incontinent of 1 1 Bowels - General Appearance General appearance: appears started age EENT: ATNC Neck: no JVD Respiratory: no kyphosis Cardiology: diastolic murmur Gastrointestinal: normoactive bowel sounds - Lab 09/07/19 05:20 09/07/19 05:20 Most recent lab results Calcium 8.5 mg/dl (8.6-10.4) L 09/07/19 05:20 Phosphorus 6.4 mg/dL (2.7-4.5) H* 09/07/19 05:20 Magnesium 2.1 mg/dL (1.6-2.5) 09/07/19 05:20 Assessment and Plan (1) End stage renal disease Status: Chronic Comment: Has a clotted fistula. Have placed a temporary catheter. Had dialysis three days in a row and had 7 liters of fluid removed. Now opted to go comfortcare. Femoral catheter removed. Does not appear to be in any distress.
[2019-09-09] MEDS ORDERED: fentaNYL 25 MCG PATCH TOPICAL SCH (11:00)
--- NOTE | 2019-09-09 13:04 | Discharge Summary ---
Medical - DS: Prov Patient information: Note initiated : 09/09/19 at 12:56 pm Service Date, if different from initiated Date: [] Patient: Shannon Alarcon 79 y/o F admitted on 09/04/19 for chest pain. Chief Complaint: [] Date of admission: 09/04/19 22:12 Discharge date: 09/09/19 Primary care physician: Chaparro Mendez Attending physician on admission: Silas Jose Consults: 09/04/19 Consult to Physician [CONS] Stat Comment: Consulting Provider: Silas Jose Reason For Exam: Physician to Consult Consult to Physician [CONS] Stat Comment: Consulting Provider: Cristian Loco Reason For Exam: Physician to Consult 09/09/19 11:46 Consult to Physician [CONS] Routine Comment: Consulting Provider: Randall Cruz Reason For Exam: Physician to Consult Attending physician on discharge: Neha Cote Medical - DS: Meds - Discharge Medications Prescriptions: LORazepam [Ativan] 1 mg SL Q1HP PRN #10 tab PRN Reason: Agitation Prescription Printed fentaNYL [Duragesic] 25 mcg TOPICAL Q72H #3 patch Prescription Printed oxyCODONE HCL [Oxycodone HCl] 10 mg PO Q1HP PRN #30 ml PRN Reason: Pain Prescription Printed Active and Home Medications: Home Medications cholecalciferol (vitamin D3) 250 mcg (10,000 unit) capsule 10,000 unit PO .Q3Days/Week cap 05/25/19 [History Confirmed 09/05/19 Last Taken 09/02/19] digoxin 125 mcg (0.125 mg) tablet 125 mcg PO .Q3 Days/Week tab 05/25/19 [History Confirmed 09/05/19 Last Taken 06/01/19 02:00] docusate sodium 100 mg capsule 100 mg PO DAILY 05/25/19 [History Confirmed 09/05/19 Last Taken 09/02/19] Midodrine [Midodrine HCl] 5 mg PO TID 06/02/19 [History Confirmed 09/05/19 Last Taken 09/04/19] Aspirin [Adult Low Dose Aspirin EC] 81 mg PO DAILY #30 tablet. 06/07/19 [Rx Confirmed 09/05/19 Last Taken 09/04/19] Acetaminophen [Non-Aspirin] 325 mg PO DAILY PRN 09/04/19 [History Confirmed 09/05/19 Last Taken 09/04/19] Bisacodyl [Dulcolax] 10 mg PO DAILY PRN 09/04/19 [History Confirmed 09/04/19 Last Taken Unknown] Bisacodyl [Dulcolax] 10 mg IN DAILY PRN 09/04/19 [History Confirmed 09/04/19 Last Taken Unknown] Folic Acid/Vit B Complex and C [Bebe-Serenity Tablet] 1 dose PO DAILY 09/04/19 [History Confirmed 09/05/19 Last Taken 09/04/19] Glucagon,Human Recombinant [Glucagon Emergency Kit] 1 mg IM PRN PRN 09/04/19 [History Confirmed 09/04/19 Last Taken Unknown] Insulin Glargine,Hum.rec.anlog [Lantus Solostar] 5 unit SQ DAILY 09/04/19 [History Confirmed 09/05/19 Last Taken 09/03/19] Lactulose 20 gm PO BIDP PRN 09/04/19 [History Confirmed 09/04/19 Last Taken Unknown] Levothyroxine Sodium [Synthroid] 75 mcg PO DAILY 09/04/19 [History Confirmed 09/05/19 Last Taken 09/04/19] Na Phos,M-B/Na Phos,Di-Ba [Fleets Adult] 1 dose IN DAILYP PRN 09/04/19 [History Confirmed 09/04/19 Last Taken Unknown] Phenyleph/Mineral Oil/Petrolat [Preparation H Ointment] 1 dose TOPICAL PRN PRN 09/04/19 [History Confirmed 09/04/19 Last Taken Unknown] Polyethylene Glycol 3350 [Smoothlax] 17 gm PO QDP PRN 09/04/19 [History Confirmed 09/04/19 Last Taken Unknown] fentaNYL [Duragesic] 12 mcg TOPICAL Q72H 09/05/19 [History Confirmed 09/05/19 Last Taken 09/03/19] Medical - DS: Hosp Hospital Course: Briefly: the patient 79-year-old female with end-stage renal disease, systolic heart failure with multiple recent hospitalizations who presented with chest pain. Chest pain appeared to be musculoskeletal, however she required dialysis for volume overload and hyponatremia. She also had a clotted fistula and a temporary femoral dialysis catheter was placed. She received dialysis, was pressor dependent with phenylephrine. On the fourth hospital day, the patient opted to discontinue all active therapies including hemodialysis and to move to comfort care. She remained stable during her remaining hospitalization, will be transferred for further care at living facility with hospice. For more detailed hospital course, please see the progress note from 09/08. Diagnoses: *Acute on chronic systolic CHF: -echo with EF 20-25% (30% in 2017), severe LV dilation and diastolic dysfxn, mod dilated RV, b/l atrial dilation, mod MR/TR, mildly reduced RV systolic fxn -per reports pt declined ICD/BiV pacer in past -occasionally wears O2 at home *Anasarca/volume overload: *Hypotension acute on chronic: pt sbp runs 80-90's per , she is on midodrine 5 tid at home -still requiring phenylephrine with intermittent cessation *Chest pain: appears MSK vs GI as is reproducible with palpation and worsens with deep breathing, but she did respond well to GI cocktail. She does have risk factor and has elevated troponin although her troponin is chronically elevated and level on repeat. EKG similar to previous with chronic LBBB. -Patient would not want to be transferred anywhere and would not want any intervention if cardiac related *ESRD (MWF): Follows with Dr. Claudy wang at baseline -Fistula clotted off and has temp cath in femoral *Cirrhosis w/recurrent Ascites: suspected to be related to ESRD vs Cardiogenic and gets regular paracentesis *Hypervolemic hyponatremia: *Hyperkalemia: improved *Leukocytosis: infectious vs reactive. Infectious source could be Pulm vs cellulitis LLE although this presents more like venous stasis but could also be source of entry for skin pako. 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 No colon cancer on endoscopy *PAF: on digoxin. -not on anticoagulation. Recent GI bleed attributed to internal hemorrhoids at [place] in July; anticoagulation was stopped but told she could restart ASA 81mg daily. *Chronic LBBB: *DM: on levemir *Hypothyroidism: *History of colovaginal fistula: as been followed by surgery outpt, deemed extremely high risk for surgery *Obesity: *Goals of care: Patient does not want aggressive measures and if she declines wants to be made comfort care only -pt with significant comorbidities and significant decline over the last 6 months. -Prognosis quite guarded Discharge diagnosis: End-stage renal disease, opted to stop dialysis Reason for admission: Dyspnea, CHF, ESRD - Time Spent with Patient Total time spent providing and/or coordinating discharge services: Greater than 30 minutes (35) Medical - DS: Exam - Constitutional Vitals: Vital Signs Temp Pulse Resp Pulse Ox 09/09/19 08:00 97.0 F 101 H 18 95 Intake and Output 09/08/19 09/09/19 09/09/19 21:59 05:59 13:59 Intake Total 90 Balance 90 Intake: Oral 90 Other: Meal egg salad sandwich Percent of Meal Consumed 75% Feeding Ability Assist with Tray Set Up Stool Size Smear Small Stool Color Brown Brown Stool Consistency Soft Liquid Loose # of times incontinent of 1 1 Bowels Weight 190 lb 4.8 oz Additional comments: General: Laying in bed no acute distress Chest: Respirations are unlabored Neuro: Alert, oriented x3, speaking in full sentences Medical - DS: Data Procedures and tests throughout hospitalization: Date of procedure: 09/05/19 Procedure Performed: femoral dialysis catheter Procedure: The area of the right groin is preped and draped. Under ultrasound guidance, the right femoral vein was accessed and a guide wire was passed. The femoral vein was dialated with serial dialators and a femoral catheter was inserted. Patient tolerated the procedure well. No complications noted. Surgeon: Cristian Loco Pathology: none sent Condition: stable Disposition: ICU Labs on day of discharge: Preliminary micro results at discharge 09/04/19 20:20 Blood Culture - Preliminary Blood 09/04/19 20:45 Blood Culture - Preliminary Blood - Impressions Echocardiogram Left ventricular systolic function severely reduced, EF 20-25% There is a severe global hypokinesis of the left ventricle and the left ventricle is severely dilated The right ventricle is moderately dilated and systolic function is mildly reduced The left atrium is moderately and right atrium severely dilated - Imaging and Cardiology CT scan - abdomen Additional comments: IMPRESSION: 1. Moderate ascites throughout the abdomen and pelvis modestly increasing from CT one month prior. There is also moderate subcutaneous edema throughout the abdominal and lower chest wall. 2. Severe bilateral renal atrophy. 3. Moderate cirrhosis. 4, greater than 50% stenoses of the celiac, right common iliac artery origin and both proximal renal artery origins. There is a catheter in the right common femoral vein ostensibly for dialysis. 5. Moderate bilateral pleural effusions resulting in compressive subsegmental atelectasis posterior lower lobes increasing 6. Moderate cardiomegaly stable. There is a new small pericardial effusion. Medical - DS: A/P - Patient/Caregiver Discharge Instructions Activity: resume usual activities as tolerated Diet: Regular Diet (without restriction) - Follow up Plan Follow up with: Chaparro Mendez ARNP [Primary Care Provider] - Disposition: Hospice - Medical Facility Prognosis: Serious Rehab Potential: Serious I certify that the patient requires SNF services: Yes (Hospice) Overall status at discharge: patient is not back to baseline Medical - DS: Qual - VTE Deep Vein Thrombosis/Pulmonary Embolism Present on Admission: No
== END 2019-09-09 14:20 | disposition hospice, inpatient (51) | DRG 291 ==
LOC: ED 16:53 → ICU 22:11 → MEDSUR 09-07 17:44
PROVIDERS: ADMIT Internal Medicine; ATTEND Internal Medicine